=== PATIENT | female | born 1955 | race Caucasian/White ===

== ENCOUNTER 2023-10-24 10:15 | Outpatient (AMB) | payer MEDICARE, OTHER, SELFPAY ==
--- NOTE | 2023-10-24 10:40 | A.SPINEOV_ITS ---
Intake Intake Visit Reasons: Radiculopathy, lumbar region Intake Note: Ms. Smith is here today c/o low back pain that radiates to the left leg. Property Loss Insurance Claim Adjuster Required: No Allergies Penicillins Allergy (Verified 10/24/23 10:41) Unknown Assessment & Plan Assessment & Plan (1) Sacroiliac joint dysfunction of left side: Code(s): M53.3 - Sacrococcygeal disorders, not elsewhere classified Plan Dear colleague Thank you for referring Tran Smith to the office today with a chief complaint of pain in the left SI joint area. HPI: This 68-year-old female suffering from progressive pain in the left SI joint area. The pain can radiate to her thigh and give burning in her left knee. Pain is severe night and she constantly has to rotate in her bed. Sitting or bending increases the pain. She has to support her left leg when she comes out of a car. Difficulty from sitting to standing position. Physical therapy provides no relief. She has not tried injections. 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 SI joint provocative test are all positive. Straight leg raising is negative. Sensation is diminished over bilateral feet.. She walks with an antalgic gait. 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 No nerve root compression. Impression/Plan: This 68-year-old female is most likely suffering from a left SI joint dysfunction. She has no clinical history of neurogenic claudication and therefore the [id number] central stenosis L4-5 should be ignored. I prescribed in his eye joint belt and will refer to our pain management team for an SI joint injection. She will return to my clinic if needed. Thank you for allowing me to participate in your patients care. total time spent was 50 minutes in counseling ,coordination of plan, personal review of imaging, surgical decision making and subsequent plan Lux Cotto MD, PhD Spine Fellowship Trained Neurosurgeon Director, [facility] Orders: Referrals Pain Management Referral M53.3 - Sacrococcygeal disorders, not elsewhere classified Medications: New sacroiliac belt As directed 1 ea 0RF Left SI joint pain M53.3 - Sacrococcygeal disorders, not elsewhere classified Coding Level of Care Code New Pt Level 4 (56841) Diagnoses Sacroiliac joint dysfunction of left side M53.3
== END 2023-10-24 11:42 | disposition home or self-care (01) ==
PROVIDERS: PCP Family Medicine; Referring Provider Family Medicine; Visit Provider Neurological Surgery
DX: M53.3 Sacrococcygeal disorders, not elsewhere classified (principal)
CPT/HCPCS: 99204

== ENCOUNTER → 2023-10-24 10:15 | Outpatient (BNVA) | payer MEDICARE, OTHER, SELFPAY | PROVIDERS: PCP Family Medicine; Visit Provider Neurological Surgery | DX: M53.3 Sacrococcygeal disorders, not elsewhere classified (principal) | CPT/HCPCS: 99202 ==

== ENCOUNTER 2023-11-15 06:21 | Outpatient (REF) | payer MEDICARE, OTHER, SELFPAY ==
--- NOTE | ~2023-11-15 | FL_ITS ---
EXAMINATION: XR FLUOROSCOPY WITH IMAGES CLINICAL INFORMATION: SI pain COMPARISON: None available. TECHNIQUE: Fluoroscopy Supervised By: Physician. Fluoroscopy Time: 0.1 minutes.. Cumulative Dose: 2.21 mGy. DAP: 0.0136 Gycm2. Images: 1. FINDINGS: The injection needle overlies the left SI joint. FL/FL guidance in treatment room IMPRESSION: Fluoroscopy is described.
== END 2023-11-15 06:22 | disposition home or self-care (01) ==
LOC: CF 06:21
PROVIDERS: Visit Provider Internal Medicine
DX: M53.3 Sacrococcygeal disorders, not elsewhere classified (principal)
CPT/HCPCS: 27096; J2795; J3301

== ENCOUNTER 2023-11-15 13:34 | Outpatient (AMB) | payer MEDICARE, OTHER, SELFPAY ==
--- NOTE | 2023-11-15 14:39 | A.OFFVIS_ITS ---
Vital Signs 11/15/23 14:55 11/15/23 14:56 Height 5 ft 7 in 5 ft 7 in Weight 164 lb 2 oz 164 lb 2 oz BMI 25.7 25.7 BP 106/64 114/62 Blood Pressure Location Lt brachial Lt brachial Position Sitting Sitting Respiration 14 14 Pulse 75 69 Pulse Source Pulse Oximeter Pulse Oximeter Pulse Oximetry (%) 95 95 Oxygen Delivery Method Room Air Room Air Comment pre-op post-op Intake Visit Reasons: Left SIJ inj ([place]ennings Pt) Allergies Penicillins Allergy (Verified 11/15/23 14:58) Unknown HPI HPI Left SIJ inj (Pennings Pt): Details: Patient presents for scheduled procedure. Denies any recent cough, cold, infection, fever or other significant changes in medical history since last office visit. Physical Exam Vital Signs: Last Vital Signs Pulse 69 11/15/23 14:56 Resp 14 11/15/23 14:56 BP 114/62 11/15/23 14:56 Pulse Ox 95 11/15/23 14:56 Oxygen Delivery Method Room Air 11/15/23 14:56 BMI result Body Mass Index 25.7 Office Procedures Joint Injection/Drain Joint Injection/Drain Details: Diagnostic Sacroiliac Joint Injection, Left The procedure, its benefits, and its risks were explained and written informed consent was obtained from the patient. Immediately prior to starting the procedure, a time-out safety check was conducted. The patient's identification, procedure name, procedure site, and procedure laterality were confirmed with the patient. ? Patient was placed prone on the fluoroscopy table and the lumbosacral area was prepped using ChloraPrep and draped with sterile drapein standard fashion. The C-arm was rotated in a contralateral oblique fashion until the medial border of the iliac crest no longer foreshadowed the posterior sacroiliac joint line. The skin and subcutaneous tissue was anesthetized using 1 mL of 0.75% plain lidocaine with 1.5-inch 25-gauge needle in the middle region of the joint line.? A 3.5-inch 22-gauge spinal needle with small bend on the tip was slowly advanced towards the joint line, coaxial to the x-ray beam. Once bony content was obtained, the needle was easily slid into the intra-articular space.? Intra- articular needle position was confirmed using lateral fluoroscopy.? A total volume of 2 mL of solution 0.5% of ropivacaine was injected intra-articularly. The stylet was reinserted and needle was removed. The patient tolerated the procedure well. Patient denied any lower extremity weakness or numbness. Patient was observed for 30 min and was discharged after fulfilling the standard discharge criteria. Coding 29950 - Sacroiliac Procedure code (CPT) selection complete Assessment & Plan Assessment & Plan (1) Sacroiliac joint dysfunction of left side: Code(s): M53.3 - Sacrococcygeal disorders, not elsewhere classified Category: Medical Plan Patient is status post left SIJ diagnostic injection. Patient tolerated procedure well and was discharged home in stable condition with discharge instructions. All questions were answered. We will follow-up via telephone or in clinic to assess response to therapy. A follow-up appointment was made during today's visit. Orders: Orders FL guidance in treatment room Today M53.3 - Sacrococcygeal disorders, not els ewhere classified Coding Level of Care Code Procedure Only Diagnoses Sacroiliac joint dysfunction of left side M53.3 CPT Codes Coding - Joint 9: 08231 - Sacroiliac ([id number])
[2023-11-15 14:55] VITALS: BP 106/64; PULSE 75; RESP 14; O2SAT 95; BMI 25.7
[2023-11-15 14:56] VITALS: BP 114/62; PULSE 69; RESP 14; O2SAT 95; BMI 25.7
== END 2023-11-15 14:40 | disposition home or self-care (01) ==
LOC: HO.PMCPRC 13:34
PROVIDERS: PCP Family Medicine; Visit Provider Internal Medicine
DX: M53.3 Sacrococcygeal disorders, not elsewhere classified (principal)
CPT/HCPCS: 27096

== ENCOUNTER 2023-11-19 10:04 | Outpatient (AMB) | payer MEDICARE, OTHER, SELFPAY ==
--- NOTE | 2023-11-19 10:13 | A.OFFVIS_ITS ---
Vital Signs 11/19/23 10:15 Height 5 ft 7 in Weight 171 lb BMI 26.8 BP 135/86 Blood Pressure Location Lt brachial Position Sitting Respiration 14 Pulse 77 Pulse Source Pulse Oximeter Pulse Oximetry (%) 93 Oxygen Delivery Method Room Air Intake Visit Reasons: s/p Left Dx SIJ inj Allergies Penicillins Allergy (Verified 11/19/23 10:16) Unknown Medication List - Last Reconciled 11/19/23 by Irma Herrera LPN levothyroxine 75 mcg PO DAILY miscellaneous medical supply SI joint belt; use as directed CHARI: 99 sacroiliac belt As directed HPI HPI s/p Left Dx SIJ inj: Details: 68-year-old female who presents today to the office for a status post-left diagnostic SIJ injection. The patient reports 75% relief following the procedure. She initially had mild soreness, which eventually improved. She states that her back and hip pain have been bothersome. She noticed a worsening of her knee pain with burning sensations. The pain radiates from her knee down to her toes. She has difficulty walking. She is not able to bend or sit for prolonged periods of time. She is wearing SIJ belt with good benefit. She was evaluated by Dr. Cotto. She has fractured her ankle several times in the past. 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 Past procedures 11/15/23: Diagnostic Sacroiliac Joint Injection, Left: 75% relief. Review of Systems Const All systems reviewed & are unremarkable except as noted in HPI and below Physical Exam Vital Signs: Last Vital Signs Pulse 77 11/19/23 10:15 Resp 14 11/19/23 10:15 BP 135/86 11/19/23 10:15 Pulse Ox 93 11/19/23 10:15 Oxygen Delivery Method Room Air 11/19/23 10:15 BMI result Body Mass Index 26.8 General: Appears afebrile. Alert and oriented. Mood and affect appropriate. Follows and participates in conversation appropriately. Respiratory effort is unlabored. Able to transition from sit to stand unassisted. Ambulates with bilaterally normal heel strike and toe off. Results Reviewed Results Reviewed: No imaging is available for review. Assessment & Plan Assessment & Plan (1) Sacroiliac joint dysfunction of left side: Code(s): M53.3 - Sacrococcygeal disorders, not elsewhere classified Category: Medical Plan Will schedule her for a right therapeutic SIJ injection. Discussed the risks and benefits of the procedure with the patient in detail. All questions were answered. The patient is on board with the plan. Justification for interventional therapy: ? Patient with average pain > 6/10 ? Patient has exhausted conservative therapy. Diagnostic injection provided more than 75% relief. ? Patient unable to tolerate physical therapy due to pain. . Patient has a good understanding of their pain condition and has appropriate mental and social support Scribed for Dr. Grimes by Brett Silva, quality engineer medical device, on 11/19/2023. I, Dr. Grimes, have personally reviewed and agree with the information entered by the scribe. Coding Level of Care Code Est Pt Level 3 (19765) Diagnoses Sacroiliac joint dysfunction of left side M53.3
[2023-11-19 10:15] VITALS: BP 135/86; PULSE 77; RESP 14; O2SAT 93; BMI 26.8
== END 2023-11-19 10:56 | disposition home or self-care (01) ==
PROVIDERS: PCP Family Medicine; Visit Provider Internal Medicine
DX: M53.3 Sacrococcygeal disorders, not elsewhere classified (principal)
CPT/HCPCS: 99213

== ENCOUNTER → 2023-11-19 10:04 | Outpatient (BNVA) | payer MEDICARE, OTHER, SELFPAY | PROVIDERS: PCP Family Medicine; Visit Provider Internal Medicine | DX: M53.3 Sacrococcygeal disorders, not elsewhere classified (principal) | CPT/HCPCS: 99212 ==

== ENCOUNTER 2023-11-29 06:28 | Outpatient (REF) | payer MEDICARE, OTHER, SELFPAY ==
--- NOTE | ~2023-11-29 | FL_ITS ---
EXAMINATION: XR FLUOROSCOPY WITH IMAGES CLINICAL INFORMATION: Sacrococcygeal disorders. COMPARISON: None available. TECHNIQUE: Fluoroscopy Supervised By: Dr. Grimes. Fluoroscopy Time: 0.1 min. Cumulative Dose: 1.49 mGy. DAP: 0.0128 Gycm2. Images: 2. FINDINGS: Intraoperative fluoroscopy and spot films were performed during a procedure in the OR. Images demonstrate a spinal needle overlying what is labeled the left SI joint. Please see Dr. Grimes' report for complete details. FL/FL guidance in treatment room IMPRESSION: Intraoperative fluoroscopy and spot films were obtained. Please see Dr. Grimes' report for complete details.
== END 2023-11-29 06:29 | disposition home or self-care (01) ==
LOC: CF 06:28
PROVIDERS: Visit Provider Internal Medicine
DX: M53.3 Sacrococcygeal disorders, not elsewhere classified (principal)
CPT/HCPCS: 27096; J2795; J3301

== ENCOUNTER 2023-11-29 14:34 | Outpatient (AMB) | payer MEDICARE, OTHER, SELFPAY ==
--- NOTE | 2023-11-29 14:38 | A.OFFVIS_ITS ---
Vital Signs 11/29/23 16:05 11/29/23 16:06 Height 5 ft 7 in Weight 151 lb BMI 23.6 BP 122/74 130/82 Blood Pressure Location Lt brachial Lt brachial Position Sitting Respiration 18 16 Pulse 92 88 Pulse Source Pulse Oximeter Pulse Oximeter Pulse Oximetry (%) 96 97 Oxygen Delivery Method Room Air Room Air Comment Pre-Op Post-Op Intake Visit Reasons: Right theraputic SIJ inj Allergies Penicillins Allergy (Verified 11/19/23 10:16) Unknown HPI HPI Right theraputic SIJ inj: Details: Patient presents for scheduled procedure on the left SI joint. Denies any recent cough, cold, infection, fever or other significant changes in medical history since last office visit. Physical Exam Vital Signs: Last Vital Signs Pulse 88 11/29/23 16:06 Resp 16 11/29/23 16:06 BP 130/82 11/29/23 16:06 Pulse Ox 97 11/29/23 16:06 Oxygen Delivery Method Room Air 11/29/23 16:06 BMI result Body Mass Index 23.6 Office Procedures Joint Injection/Drain Joint Injection/Drain Details: Sacroiliac Joint Injection, LEFT The procedure, its benefits, and its risks were explained and written informed consent was obtained from the patient. Immediately prior to starting the procedure, a time-out safety check was conducted. The patient's id entification, procedure name, procedure site, and procedure laterality were confirmed with the patient. ? Patient was placed prone on the fluoroscopy table and the lumbosacral area was prepped using ChloraPrep and draped with sterile drapein standard fashion. The C-arm was rotated in a contralateral oblique fashion until the medial border of the iliac crest no longer foreshadowed the posterior sacroiliac joint line. The skin and subcutaneous tissue was anesthetized using 1 mL of 0.75% plain lidocaine with 1.5-inch 25-gauge needle in the middle region of the joint line.?A 3.5-inch 22-gauge spinal needle with small bend on the tip was slowly advanced towards the joint line, coaxial to the x-ray beam. Once bony content was obtained, the needle was easily slid into the intra-articular space.?Intra- articular needle position was confirmed using lateral fluoroscopy.?A total volume of 2.5mL of solution containing 40 mg Kenalog and rest 0.5% of ropivacaine was injected intra-articularly. The stylet was reinserted and needle was removed. The patient tolerated the procedure well. Patient denied any lower extremity weakness or numbness. Patient was observed for 30 min and was discharged after fulfilling the standard discharge criteria. Coding 81648 - Sacroiliac Procedure code (CPT) selection complete Assessment & Plan Assessment & Plan (1) Sacroiliac joint dysfunction of left side: Code(s): M53.3 - Sacrococcygeal disorders, not elsewhere classified Category: Medical Plan Patient is status post left therapeutic sacroiliac joint injection. Patient tolerated procedure well and was discharged home in stable condition with discharge instructions. All questions were answered. We will follow-up via telephone or in clinic to assess response to therapy. A follow-up appointment was made during today's visit. Orders: Orders FL guidance in treatment room Today M53.3 - Sacrococcygeal disorders, not elsewhere classified Coding Level of Care Code Procedure Only Diagnoses Sacroiliac joint dysfunction of left side M53.3 CPT Codes Coding - Joint 9: 70418 - Sacroiliac ([id number])
[2023-11-29 16:05] VITALS: BP 122/74; PULSE 92; RESP 18; O2SAT 96; BMI 23.6
[2023-11-29 16:06] VITALS: BP 130/82; PULSE 88; RESP 16; O2SAT 97
== END 2023-11-29 16:01 | disposition home or self-care (01) ==
LOC: HO.PMCPRC 14:34
PROVIDERS: PCP Family Medicine; Visit Provider Internal Medicine
DX: M53.3 Sacrococcygeal disorders, not elsewhere classified (principal)
CPT/HCPCS: 27096

== ENCOUNTER 2023-12-31 10:42 | Outpatient (AMB) | payer MEDICARE, OTHER, SELFPAY ==
--- NOTE | 2023-12-31 10:44 | A.OFFVIS_ITS ---
Vital Signs 12/31/23 10:46 Height 5 ft 7 in Weight 171 lb BMI 26.8 BP 120/78 Blood Pressure Location Lt brachial Position Sitting Respiration 14 Pulse 78 Pulse Source Pulse Oximeter Pulse Oximetry (%) 97 Oxygen Delivery Method Room Air Intake Visit Reasons: s/p right theraputic SIJ inj Allergies Penicillins Allergy (Verified 12/31/23 10:47) Unknown Medication List - Last Reconciled 12/31/23 by Irma Herrera LPN levothyroxine 75 mcg PO DAILY miscellaneous medical supply SI joint belt; use as directed CHARI: 99 sacroiliac belt As directed HPI HPI s/p right theraputic SIJ inj: Details: 68-year-old female presenting today for status post right therapeutic SIJ injection. She reports burning pain in her left knee. She is having trouble with her ankle because that had been fractured twice. She is limping while ambulating. She is depressed in the outdoor because she cannot able to function normally. She has pain in her thighs. She denies any difficulty sleeping. She reports she gets easily in and out of the car. She states that her left leg is bothering her a lot. She feels likes her gait is abnormal, and not walking normally. She has to put pressure on the right leg. She has to take a lot of breaks while doing yard work. Difficulty with bending, lifting and twisting. She desires to do physical therapy which helped with her back in the past. She states she overall fairly healthy and active. She mostly does home exercises as she does not have time for gym. She has arthritis in her back and she had an MRI done at [facility]. She has a TIA stroke in 2016 and took baby aspirin. [facility] Medical History (Updated 12/31/23 @ 11:23 by Manuel Grimes MD) Transient ischemic attack (TIA) Migraine Hypothyroid Review of Systems Const All systems reviewed & are unremarkable except as noted in HPI and below Physical Exam Vital Signs: Last Vital Signs Pulse 78 12/31/23 10:46 Resp 14 12/31/23 10:46 BP 120/78 12/31/23 10:46 Pulse Ox 97 12/31/23 10:46 Oxygen Delivery Method Room Air 12/31/23 10:46 BMI result Body Mass Index 26.8 General: Appears afebrile. Alert and oriented. Mood and affect appropriate. Follows and participates in conversation appropriately. Respiratory effort is unlabored. Able to transition from sit to stand unassisted. Ambulates with bilaterally normal heel strike and toe off. Assessment & Plan Assessment & Plan (1) Lumbar radiculitis: Code(s): M54.16 - Radiculopathy, lumbar region Category: Medical Plan She is going to go for physical therapy for lumbar radicular symptoms and then she will come back as needed if her symptoms do not improve with physical therapy. I discussed potentially left L3-L4 transforaminal injection for her left L3-L4 DRG compression. She also has significant vertebral end-plate degeneration so I discussed potential basivertebral nerve ablation procedure. Orders: Orders PT Evaluation and Treatment 12/31/23 M54.16 - Radiculopathy, lumbar region Patient Instructions: Scribed for Dr. Grimes by Colt Isaac, medical coder, on 12/31/2023. I, Dr. Grimes, have personally reviewed and agree with the information entered by the scribe Coding Level of Care Code Est Pt Level 4 (82092) Diagnoses Lumbar radiculitis M54.16
[2023-12-31 10:46] VITALS: BP 120/78; PULSE 78; RESP 14; O2SAT 97; BMI 26.8
== END 2023-12-31 11:29 | disposition home or self-care (01) ==
PROVIDERS: PCP Family Medicine; Visit Provider Internal Medicine
DX: M54.16 Radiculopathy, lumbar region (principal)
CPT/HCPCS: 99214

== ENCOUNTER → 2023-12-31 10:42 | Outpatient (BNVA) | payer MEDICARE, OTHER, SELFPAY | PROVIDERS: PCP Family Medicine; Visit Provider Internal Medicine | DX: M54.16 Radiculopathy, lumbar region (principal) | CPT/HCPCS: 99212 ==

== ENCOUNTER 2024-02-14 10:36 | Outpatient (AMB) | payer MEDICARE, OTHER, SELFPAY ==
[2024-02-14 10:45] VITALS: BP 142/80; PULSE 86; O2SAT 95; BMI 26.1
--- NOTE | 2024-02-14 10:45 | A.OFFVIS_ITS ---
Vital Signs 02/14/24 10:45 Height 5 ft 6 in Weight 162 lb BMI 26.1 BP 142/80 H Blood Pressure Location Rt brachial Position Sitting Pulse 86 Pulse Source Pulse Oximeter Pulse Oximetry (%) 95 Oxygen Delivery Method Room Air Intake Visit Reasons: Hip pain Allergies Penicillins Allergy (Verified 02/14/24 10:46) Unknown Medication List - Last Reconciled 02/14/24 by Laura Fonseca levothyroxine 75 mcg PO DAILY miscellaneous medical supply SI joint belt; use as directed CHARI: 99 sacroiliac belt As directed HPI HPI Hip pain: Details: 68-year-old female presenting with worsening left lumbar radicular pain after a course of physical therapy. The patient states that she started physical therapy few weeks ago and went to 2-3 sessions. Gradually she started experiencing an acute flare of her left low back pain radiating into the buttock in her left thigh up to the left knee. She ended up in the ER and was administered IV morphine that allowed her to return home. But she has been having significant discomfort with her ADLs. She is unable to get comfortable at night and is unable to take care of her grandchildren that she normally does. She reports pain in the left lower back region including the left buttock area that radiates down the left posterior thigh. She also reports a several month history of left knee burning. She has not tolerated gabapentin or pregabalin well. She has only been taking Tylenol as needed. Pain has been greater than 7/10 on average over the past few weeks. She also continues to have axial low back pain that is worse with lumbar range of motion. [facility]LY [facility] Medical History (Updated 02/14/24 @ 12:13 by Manuel Grimes MD) Transient ischemic attack (TIA) Migraine Hypothyroid Physical Exam Vital Signs: Last Vital Signs Pulse 86 02/14/24 10:45 BP 142/80 H 02/14/24 10:45 Pulse Ox 95 02/14/24 10:45 Oxygen Delivery Method Room Air 02/14/24 10:45 BMI result Body Mass Index 26.1 On exam today: Appears afebrile. Alert and oriented. Mood and affect appropriate. Follows and participates in conversation appropriately. Respiratory effort is unlabored. Able to transition from sit to stand unassisted. Ambulates with bilaterally normal heel strike and toe off. Able to stand and walk on toes and heels. Tenderness to palpation overlying the left iliac and hip region. Lumbar range of motion is painful. Sitting for prolonged period reproduces pain. Results Reviewed Results Reviewed: There are Modic type I signal changes at L3-L4 and there are minimal Modic type II signal changes at L2-L3. Multilevel endplate osteophytes. There is diffuse disc desiccation with mild multilevel loss of intervertebral disc height which is most pronounced at L2-L3. Multiple small Schmorl's nodes. Assessment & Plan Assessment & Plan (1) Lumbar radiculitis: Code(s): M54.16 - Radiculopathy, lumbar region Category: Medical (2) Vertebrogenic low back pain: Code(s): M54.51 - Vertebrogenic low back pain Category: Medical Plan 68-year-old female with multifactorial low back pain issues. She originally presented with sacroiliac joint dysfunction with localized left sacroiliac pain that responded well to a diagnostic and therapeutic left SI joint injection. One month later she started experiencing a lumbar radicular flare after undergoing a round of physical therapy with pain originating in her lumbar spine and radiating down her left buttock and left thigh. She also has been having left knee burning during the last few months. For this symptom, I suggested pursuing a left L3-4 TFESI as the next step in management to settle her flare and allow her to return to routine of managing her sciatica related symptoms via HEP, stretching and aquatic exercises. I also suggested looking into acupuncture as an ongoing therapeutic modality in the future. She also has a history of axial low back pain unresponsive to conservative therapy including neuropathic medications, NSAIDs, physical therapy and injections. For this we discussed basivertebral nerve ablation at L2, L3, L4 and L5 levels for active ongoing Modic changes at these levels based on her MRI find ings. She also has pain in her back with axial loading and range of motion of the lumbar spine. I provided her with a brochure for this procedure and answered her questions. She is interested in proceeding with this as well after her current sciatica related flare is addressed. Coding Level of Care Code Est Pt Level 4 (25441) Procedure Only Diagnoses Lumbar radiculitis M54.16 Vertebrogenic low back pain M54.51
== END 2024-02-14 11:50 | disposition home or self-care (01) ==
PROVIDERS: PCP Family Medicine; Visit Provider Internal Medicine
DX: M54.16 Radiculopathy, lumbar region (principal); M54.51 Vertebrogenic low back pain
CPT/HCPCS: 99214

== ENCOUNTER → 2024-02-14 10:36 | Outpatient (BNVA) | payer MEDICARE, OTHER, SELFPAY | PROVIDERS: PCP Family Medicine; Visit Provider Internal Medicine | DX: M54.16 Radiculopathy, lumbar region (principal); M54.51 Vertebrogenic low back pain | CPT/HCPCS: 99212 ==

== ENCOUNTER 2024-02-28 06:11 | Outpatient (REF) | payer MEDICARE, OTHER, SELFPAY ==
--- NOTE | ~2024-02-28 | FL_ITS ---
EXAMINATION: XR FLUOROSCOPY WITH IMAGES CLINICAL INFORMATION: Pain management, left nerve root sheath injection lumbar. COMPARISON: None available. TECHNIQUE: Fluoroscopy provided to: Dr. Grimes Fluoroscopy time: 0.1 minutes DAP: 0.0624 mGycm2 Images: 2 FINDINGS: 2 coned-down PA and lateral lumbar spine images, level not apparent, shows needle within the right nerve root sleeve of a lumbar level with subsequent contrast injection. FL/FL guidance in treatment room IMPRESSION: Fluoroscopic guidance. Please refer to the full operative report for details. Electronically signed by: Los Yang MD 04/25/2024 03:30 PM EDT
== END 2024-02-28 06:12 | disposition home or self-care (01) ==
LOC: CF 06:11
PROVIDERS: Visit Provider Internal Medicine
DX: M54.16 Radiculopathy, lumbar region (principal)
CPT/HCPCS: 64483; J1100; Q9967

== ENCOUNTER 2024-02-28 09:43 | Outpatient (AMB) | payer MEDICARE, OTHER, SELFPAY ==
[2024-02-28 09:45] VITALS: BP 148/75; PULSE 62; RESP 18; O2SAT 100
--- NOTE | 2024-02-28 10:31 | MHC.OFFVIS ---
Vital Signs 02/28/24 09:45 02/28/24 10:32 BP 148/75 H 127/79 Blood Pressure Location Lt brachial Lt brachial Position Sitting Sitting Respiration 18 19 Pulse 62 71 Pulse Source Pulse Oximeter Pulse Oximeter Pulse Oximetry (%) 100 96 Oxygen Delivery Method Room Air Room Air Comment Pre-op Post-op Intake Visit Reasons: Left L3 TFESI Allergies Penicillins Allergy (Verified 02/14/24 10:46) Unknown HPI HPI Left L3 TFESI: Details: Patient presents for scheduled procedure. Denies any recent cough, cold, infection, fever or other significant changes in medical history since last office visit. FORMERLY [facility] Medical History (Updated 02/14/24 @ 12:13 by Manuel Grimes MD) Transient ischemic attack (TIA) Migraine Hypothyroid Physical Exam Vital Signs: Last Vital Signs Pulse 71 02/28/24 10:32 Resp 19 02/28/24 10:32 BP 127/79 02/28/24 10:32 Pulse Ox 96 02/28/24 10:32 Oxygen Delivery Method Room Air 02/28/24 10:32 Office Procedures Details: Transforaminal epidural steroid injection, Left L3 After obtaining written consent, pre-procedure blood pressure and heart rate were stable and recorded in the nursing record. The patient was placed in the prone position on the fluoroscopy table. The lumbosacral area was prepped with chloraprep, allowed to dry and draped in sterile fashion. Using fluoroscopy, the skin overlying our target was anesthetized with 0.5% lidocaine. A 22 gauge 3.5 inch spinal needle was advanced to the safe triangle in the upper pole of the left L3 foramen. No paresthesias were elicited with needle placement and aspiration was negative for blood and CSF. Correct needle position was confirmed with approximately 1 ml contrast dye (Omnipaque 180 mg/ml) injected under real-time fluoroscopy. No evidence of vascular or intrathecal uptake was seen and there was both epidural and peripheral spread of the contrast agent. 10 mg dexamethasone plus 1 ml containing 0.5% lidocaine was slowly injected. The needle was flushed and removed. The skin was cleansed and a sterile bandages were applied. The patient tolerated the procedure well and no complications were encountered. Following the procedure the patient's vital signs were stable. The patient was discharged home in good condition with post-procedural instructions. Time Out: Immediately prior to the procedure, the following was verbally confirmed that there is a signed consent form and that the correct patient, planned procedure, site and side are consistent with documentation and that necessary equipment and/or blood products are available prior to the start of the case. Complications: none EBL: <5 cc 77166 - Lumbar/Sacral Procedure code (CPT) selection complete Assessment & Plan Assessment & Plan (1) Lumbar radiculitis: Code(s): M54.16 - Radiculopathy, lumbar region Category: Medical Plan Patient is status post left L3 TFESI. Patient tolerated procedure well and was discharged home in stable condition with discharge instructions. All questions were answered. We will follow-up via telephone or in clinic to assess response to therapy. A follow-up appointment was made during today's visit. Orders: Orders FL guidance in treatment room Today M54.16 - Radiculopathy, lumbar region Coding Level of Care Code Procedure Only Diagnoses Lumbar radiculitis M54.16 CPT Codes Transforaminal Epidural Steroid Inj - TESI 3: 34500 - Lumbar/Sacral ([id number])
[2024-02-28 10:32] VITALS: BP 127/79; PULSE 71; RESP 19; O2SAT 96
== END 2024-02-28 10:32 | disposition home or self-care (01) ==
LOC: HO.PMCPRC 09:43
PROVIDERS: PCP Family Medicine; Visit Provider Internal Medicine
DX: M54.16 Radiculopathy, lumbar region (principal)
CPT/HCPCS: 64483

== ENCOUNTER 2024-03-17 11:37 | Outpatient (AMB) | payer MEDICARE, OTHER, SELFPAY ==
--- NOTE | 2024-03-17 11:28 | A.OFFVIS_ITS ---
Intake Visit Reasons: s/p Left L3 TFESI Allergies Penicillins Allergy (Verified 02/14/24 10:46) Unknown HPI HPI s/p Left L3 TFESI: Details: 69-year-old female who presents today to the office for a status post left L3 transforaminal epidural steroid injection The patient reports 75% relief following the procedure. She has been active the last four days and has mild pain due to activities. She reports lower back and upper hip regions with prolonged sitting. She rates her back pain at 6/10 in intensity. She has a burning sensation in her left knee. Her knee pain is bothersome. She had a side effect from the last sacroiliac joint injection and developed redness and rash all over the face. She is sleeping well and able to change sides while sleeping without any pain. Past procedures 02/28/24: Transforaminal epidural steroid injection, Left L3: 75% relief. 11/29/23: Sacroiliac Joint Injection, LEFT: % relief. 11/15/23: Diagnostic Sacroiliac Joint Injection, Left: 75% relief. FORMERLY [facility] Medical History (Updated 02/14/24 @ 12:13 by Manuel Grimes MD) Transient ischemic attack (TIA) Migraine Hypothyroid Review of Systems Const All systems reviewed & are unremarkable except as noted in HPI and below Telehealth Telehealth Telehealth [facility] Location of provider rendering services: practice address Location of patient: address on file Patient Identification confirmed using: Name, : Yes Telehealth method: video Patient verbally consented to treatment: Yes Patient verbally consented to billing insurance company: Yes Patient informed of any privacy concerns related to visit: Yes Minutes spent on Phone/Video with Pt.: 11 Results Reviewed Results Reviewed: MR Lumbar Spine (C-) CPT 29766 Room Description: [facility] 1.5 MR Lumbar Spine (C-) CPT 13317 INDICATION: Lumbar radiculopathy Lumbar radiculopathy [email or web address] - Standard Department Protocol TECHNIQUE: MRI of the lumbar spine was performed without intravenous contrast utilizing sagittal SPACE with axial reformats, sagittal T1, and sagittal STIR sequences. COMPARISON: None. FINDINGS: NUMBERING: The study assumes 5 [id number] lumbar type vertebral bodies. ALIGNMENT, VERTEBRAE, MARROW, AND DISCS: Alignment is normal. Vertebral body heights are preserved. There are Modic type I signal changes at L3-L4 and there are minimal Modic type II signal changes at L2-L3. Multilevel endplate osteophytes. There is diffuse disc desiccation with mild multilevel loss of intervertebral disc height which is most pronounced at L2-L3. Multiple small Schmorl's nodes. CONUS: The conus is normal in signal and contour, with normal level of termination at L1. PARASPINAL TISSUES: There is atrophy of the posterior paraspinal musculature. DETAILED FINDINGS BY LEVEL: T11-T12: Facet arthropathy. No significant canal stenosis or neural foraminal narrowing. T12-L1: Facet arthropathy. No significant canal stenosis or neural foraminal narrowing. L1-L2: Minimal disc bulge and facet arthropathy. No significant canal stenosis or neural foraminal narrowing. L2-L3: Minimal disc bulge and facet arthropathy. No significant canal stenosis or neural foraminal narrowing. L3-L4: Diffuse disc bulge with ligamentum flavum thickening and facet arthropathy resulting in mild narrowing of the spinal canal and left neural foramen. There is no significant right neural foraminal narrowing. L4-L5: Diffuse disc bulge with ligamentum flavum thickening and facet arthropathy resulting in mild narrowing of the spinal canal or right subarticular zone with crowding of the traversing right L5 nerve roots. There is no significant neural foraminal narrowing. L5-S1: Disc bulge and facet arthropathy. No significant canal stenosis or neural foraminal narrowing. IMPRESSION: Multilevel degenerative changes of the lumbar spine as described above. There is crowding of the traversing right L5 nerve roots at L4-L5. Correlate for corresponding distribution symptoms. Assessment & Plan Assessment & Plan (1) Vertebrogenic low back pain: Code(s): M54.51 - Vertebrogenic low back pain Category: Medical Plan Discussed BVN ablation vs. temporary nerve stimulator vs. local anesthetic injection as possible treatment options. We will schedule her for L2-L3-L4-L5 BVN ablation for axial back pain not responsive to other treatments. Discussed the risks and benefits of the procedure with the patient in detail. All questions were answered. The patient is on board with the plan. Justification for interventional therapy: ? Patient with average pain > 6/10 ? Patient has exhausted conservative therapy including SI joint injection physical therapy. transforaminal epidural steroid injection with persistent low back pain ? Patient unable to tolerate physical therapy due to pain. . Patient has a good understanding of their pain condition and has appropriate mental and social support. Scribed for Dr. Grimes by Brett Silva, neuropsychology medical consultant, on 03/17/2024. I, Dr. Grimes, have personally reviewed and agree with the information entered by the scribe. Coding Level of Care Code Est Pt Level 4 (65296) Diagnoses Vertebrogenic low back pain M54.51
== END 2024-03-17 11:38 | disposition home or self-care (01) ==
LOC: HO.PMC 11:37
PROVIDERS: PCP Family Medicine; Visit Provider Internal Medicine
DX: M54.51 Vertebrogenic low back pain (principal)
CPT/HCPCS: 99214

== ENCOUNTER → 2024-03-17 11:37 | Outpatient (BNVA) | payer MEDICARE, OTHER, SELFPAY | PROVIDERS: PCP Family Medicine; Visit Provider Internal Medicine | DX: M54.51 Vertebrogenic low back pain (principal) | CPT/HCPCS: 99212 ==

== ENCOUNTER 2024-04-30 09:53 | Day surgery (SDC) | payer MEDICARE, OTHER, SELFPAY ==
[2024-04-28 13:52] VITALS: BMI 26.1
[2024-04-28 14:07] VITALS: BMI 25.5
--- NOTE | 2024-04-28 14:42 | P.CONAN_ITS ---
Documented by User: Jaki Ramos NP 04/28/24 14:45 HPI - Anesthesia Eval Consult details Narrative: 69yo F for L2,L3,L4 and L5 Basivertebral Nerve Ablation Intracept RFA Hx of long to wake with GA ~ 40 years ago PMFSH Active Problems Active Problems: All Active Problems Vertebrogenic low back pain (Acute) Lumbar radiculitis (Acute) Sacroiliac joint dysfunction of left side (Acute) Past Medical History Medical History (Updated 04/28/24 @ 14:06 by Vanessa Brandon RN) Anesthesia complication Family history of anesthesia complication Transient ischemic attack (TIA) Migraine Hypothyroid Surgical History Surgical History (Updated 04/28/24 @ 13:59 by Vanessa Brandon RN) Hx of tubal ligation History of esophagogastroduodenoscopy (EGD) H/O colonoscopy Social History Social History Are you a primary wound care coordinator to a significant other at home: No Do you presently have visiting nurse or other home services: No Patient Tobacco Use Status: Never used Tobacco Use of substances other than those prescribed or required for medical reasons: No Have you been hit, kicked, punched, or otherwise hurt by someone within the past year? If so, by whom?: No Spiritual Healthcare Practices: none Yazidi Healthcare Practices: [employer] Cultural Healthcare Practices: none Are you DNR?: No Advance Directives Information Provided: Yes (as above noted) Advance Directives on File: No Recently lost weight without trying: No Eating poorly because of decreased appetite: No Nutrition Risks: No Nutritional Risk FDLMP: n/a Poor oral hygiene: No Meds Allergies Allergy/AdvReac Type Severity Reaction Status Date / Time Penicillins Allergy Unknown reaction Verified 04/28/24 14:06 unknown-allergy as young adult Home Medications ?Medication ?Instructions ?Recorded ?Confirmed ?Last Taken ?Type levothyroxine 75 mcg tablet 75 mcg PO DAILY 11/19/23 04/28/24 Unknown History Exam Height,Weight and Vital Signs: Height 5 ft 6 in Weight 71.668 kg Pertinent Lab Results Pertinent Lab Results: Labs from [facility] 01/2024 CBC and CMP wnl Assessment and Plan Assessment Anesthesia Assessment: Chart Reviewed Documented by User: Tran Frank MD 04/30/24 10:53 [facility] Past Medical History Medical History (Updated 04/28/24 @ 14:06 by Vanessa Brandon RN) Anesthesia complication Family history of anesthesia complication Transient ischemic attack (TIA) Migraine Hypothyroid Family History Family history of problems with anesthesia: No Surgical History Surgical History (Updated 04/28/24 @ 13:59 by Vanessa Brandon RN) Hx of tubal ligation History of esophagogastroduodenoscopy (EGD) H/O colonoscopy History of Problems with Anesthesia: No Social History Social History Are you a primary wound care coordinator to a significant other at home: No Do you presently have visiting nurse or other home services: No Patient Tobacco Use Status: Never used Tobacco Use of substances other than those prescribed or required for medical reasons: No Have you been hit, kicked, punched, or otherwise hurt by someone within the past year? If so, by whom?: No Spiritual Healthcare Practices: none Yazidi Healthcare Practices: [employer] Cultural Healthcare Practices: none Are you DNR?: No Advance Directives Information Provided: Yes (as above noted) Advance Directives on File: No Recently lost weight without trying: No Eating poorly because of decreased appetite: No Nutrition Risks: No Nutritional Risk FDLMP: n/a Poor oral hygiene: No Meds Allergies Allergy/AdvReac Type Severity Reaction Status Date / Time Penicillins Allergy Unknown reaction Verified 04/28/24 14:06 unknown-allergy as young adult Home Medications ?Medication ?Instructions ?Recorded ?Confirmed ?Last Taken ?Type levothyroxine 75 mcg tablet 75 mcg PO DAILY 11/19/23 04/28/24 Unknown History Exam Airway Mallampati Class: II (top right front tooth cap, caps lateral) TM Dist: >3cm Neck ROM: Full Heart: rrr Lungs: cta Assessment and Plan Assessment Anesthesia Assessment: Anesthesia Plan Discussed Final Anesthetic Review Family History of Problems with Anesthesia: No History of Problems with Anesthesia: No NPO: Yes ASA Class: II Final Preanesthetic Review: No Changes in Pt Med Stat, Meds/Allgs Chart Reviewed and Consent Obtained/Reviewed Patient Risk: Low Procedure Risk: Low Anesthetic Plan Anesthetic Plan: GA Disposition: Standard PACU
[2024-04-30] VITALS (10 sets, daily range): BP systolic 118–133; BP diastolic 69–80; PULSE 75–87; RESP 12–20; TEMP 36.3–36.6; O2SAT 88–98; BMI 25.7
[2024-04-30] MEDS: Lactated Ringers 1,000 ML 100 ML IVCONT (10:37)
[2024-04-30] MEDS: dexAMETHasone sod phosphate 4 MG/ML VIAL IVPUSH (10:38)
[2024-04-30 11:20] LABS: MRSA Nasal PCR NEGATIVE (Negative); SA Nasal PCR POSITIVE (Negative)
--- NOTE | 2024-04-30 12:09 | P.OP_ITS ---
Operative Note Operative Note Date of Service: 04/30/24 Narrative: Preoperative diagnosis: Vertebrogenic low back pain Postoperative diagnosis: Same Procedure: Basivertebral nerve (BVN) ablation ? Intracept Procedure L3, L4, L5, L5 Procedure Time Out: Patient ID confirmed, correct procedure to be performed, correct site and/or side for procedure as per marked location and correct medication(s), including antibiotic to be used for the procedure. Description of Procedure: After receiving anesthesia in the supine position, the patient was placed prone on the operating room table and all pressure points w ere appropriately padded. The back was sterilely prepped and draped. The C-arm was sterilely draped and moved into position to visualize the L5 vertebral body in the AP and lateral plane. The C-arm was rotated to square off the superior endplate at L5. The C-arm was then rotated to the left approximately 15-20 degrees for an approach to the left L5 pedicle. The skin entry point was identified and infiltrated with 1% lidocaine using a 25-gauge 1-1/2 inch needle. A skin incision was made with 15 scalpel blade. The introducer cannula with bevel tip was then introduced through the skin, subcutaneous tissue and paraspinal muscle until bony contact was made. The position was checked in the AP and lateral plane. Using a mallet, the trocar was then advanced through the pedicle to the posterior aspect of the vertebral body using a combination of AP and lateral views to ensure appropriate traversing of the pedicle and no breaching of the pedicle medially. Once the trocar was in the posterior aspect of the L5 vertebral body, the trocar was removed from the cannula and the curved cannula assembly with the nitinol J-stylet was inserted. The spin wheel was rotated counterclockwise permitting excursion of the J-stylet. The curved cannula assembly was then advanced using a mallet in 1-2 mm increments. The J- stylet was observed to traverse the vertebral body in the AP and lateral views. The J-stylet was removed and replaced with the straight stylet to reach the BVN target. Target was reached when the tip of the stylet was 50% anterior of the posterior wall of the L5 in the lateral view (midway between the superior and inferior endplates) and it crossed the midline of the L5 spinous process in the AP view. The stylet was then removed. The bipolar radiofrequency (RF) probe was connected to the generator and then inserted into the introducer cannula in its ablation position. The spin wheel was rotated clockwise to retract the PEEK sleeve to expose the proximal electrode on the radiofrequency probe. The BVN was then ablated using [employer]?s targeted RFG algorithm. While the ablation was occurring at L5, the C-arm was moved to visualize the target at the superolateral aspect of the L2 vertebral body. The C-arm was rotated to square off the superior endplate at L2 and rotated left to obtain an oblique view. The superolateral left L2 pedicle was identified for access. The same process was utilized to place the tip of the cannular 50% anterior of the posterior wall of the L2 in the lateral view (midway between the superior and inferior endplates) and it crossed the midline of the L2 spinous process in the AP view. The stylet was then removed. The bipolar radiofrequency (RF) probe was removed from the previous vertebral body, the tip cleaned and was inserted into the introducer cannula in its ablation position. The spin wheel was rotated clockwise to retract the PEEK sleeve to expose the proximal electrode on the radiofrequency probe. The BVN was then ablated using [employer]?s targeted RFG algorithm. While the ablation was occurring at L2, the C-arm was moved to visualize the target at the superolateral aspect of the L3 vertebral body using the approach similar to the L2 vertebral body. The C-arm was rotated to square off the superior endplate at L3 and rotated approximately to the right to obtain an oblique view. The superolateral right L3 pedicle was identified, and the skin entry point identified. Same steps were followed as for L2. Target was reached when the tip of the stylet was 50% anterior of the posterior wall of the L4 in the lateral view (midway between the superior and inferior endplates) and it crossed the midline of the L3 spinous process in the AP view. The stylet was then removed. The bipolar radiofrequency (RF) probe was removed from the previous vertebral body, the tip cleaned and was inserted into the introducer cannula in its ablation position. The spin wheel was rotated clockwise to retract the PEEK sleeve to expose the proximal electrode on the radiofrequency probe. The BVN was then ablated using [employer]?s targeted RFG algorithm. While the ablation was occurring at L3, the C-arm was moved to visualize the target at the superolateral aspect of the L4 vertebral body. The C-arm was rotated to square off the superior endplate at L4 and rotated left to obtain an oblique view. The superolateral left L4 pedicle was identified for access. The same process was utilized to place the tip of the cannular 50% anterior of the posterior wall of the L4 in the lateral view (midway between the superior and inferior endplates) and it crossed the midline of the L4 spinous process in the AP view. The stylet was then removed. The bipolar radiofrequency (RF) probe was removed from the previous vertebral body, the tip cleaned and was inserted into the introducer cannula in its ablation position. The spin wheel was rotated clockwise to retract the PEEK sleeve to expose the proximal electrode on the radiofrequency probe. The BVN was then ablated using [employer]?s targeted RFG algorithm. With all ablations completed, the instruments were removed from the vertebral bodies. The surgical wounds were closed with 2-0 silk sutures and a sterile dressing was applied. The patient was returned to the supine position and the anesthesia reversed. The patient tolerated the procedure well and was brought to the recovery room. The patient was provided post-op and follow up instructions. Complications: None Estimate Blood Loss: 15 mL
--- NOTE | 2024-04-30 12:09 | P.BOP_ITS ---
Brief Operative Note Date of Service: 04/30/24 Pre-op diagnosis: Vertebrogenic low back pain Post-op diagnosis: same Procedure: Basivertebral nerve ablation (Intracept procedure) L2, L3, L4, L5 Implants: None Surgeon: Manuel Grimes MD Anesthesia: MAC Was an Paper Cup Handle Machine Operator used for this Procedure?: No Estimated blood loss (mL): 15 Pathology: none sent Condition: stable Disposition: PACU
--- NOTE | 2024-04-30 12:09 | MHC.SHP ---
Pre-Procedural Eval Section A - 24 Hr Update-Section A only Date of Service: 04/30/24 The patient is an INPATIENT: No Changes since office visit: Yes Patient answered all questions The patient has been examined within 24 hours of the surgical procedure. The History & Physical has been completed within 30 days and I have reviewed it.: No Section B - Complete if H&P > 30 days Chief Complaint: Vertebrogenic low back pain Relevant Family History (Specify if Yes): No Relevant Social History: None Present Medications: see Short Stay Collaborative assessment Medical History: No relevant PMH History of Previous Operations: No relevant previous surgery Allergies: Allergies Allergy/AdvReac Type Severity Reaction Status Date / Time Penicillins Allergy Unknown reaction Verified 04/28/24 14:06 unknown-allergy as young adult Review of Systems Sugical H&P ROS: Negative: Constitution, Cardiovascular and Respiratory Exam Surgical H&P Exam: Normal: HEENT, Normal: Heart and Normal: Lungs Plan Diagnosis/Plan: Unchanged I have reviewed the history and physical and performed a pertinent physical examination on my patient. No changes have occurred unless specified. Time Spent With Patient Time: Total time managing care of this patient today ____ minutes.
== END 2024-04-30 16:00 | disposition home or self-care (01) ==
PROVIDERS: Registered Nurse Emergency; PCP Family Medicine; Visit Provider Internal Medicine
PROC: (CPT 64628; principal; 2024-04-30 11:30)
DX: M54.51 Vertebrogenic low back pain (principal); G43.909 Migraine, unspecified, not intractable, without status migrainosus; E03.9 Hypothyroidism, unspecified; Z86.73 Personal history of transient ischemic attack (TIA), and cerebral infarction without residual deficits; Z88.0 Allergy status to penicillin; Z98.51 Tubal ligation status; Z79.899 Other long term (current) drug therapy
CPT/HCPCS: 64628; 64629 ×2; 87640; 87641; C1889; J0736; J1100; J2003; J2250; J2405; J2704; J2795; J3010

== ENCOUNTER → 2024-04-30 09:53 | Outpatient (BNV) | payer MEDICARE, OTHER, SELFPAY | PROVIDERS: PCP Family Medicine; Visit Provider Internal Medicine | DX: M54.51 Vertebrogenic low back pain (principal) | CPT/HCPCS: 64628; 64629 ==

== ENCOUNTER 2024-05-07 09:37 | Outpatient (AMB) | payer MEDICARE, OTHER, SELFPAY ==
--- NOTE | 2024-05-07 10:01 | A.OFFVIS_ITS ---
Vital Signs 05/07/24 10:02 Height 5 ft 6 in Weight 172 lb BMI 27.8 BP 134/84 Blood Pressure Location Lt brachial Position Sitting Respiration 15 Pulse 76 Pulse Source Pulse Oximeter Pulse Oximetry (%) 96 Oxygen Delivery Method Room Air Intake Visit Reasons: S/p L2, L3, L4 and L5 BVN 04/30/24 Allergies Penicillins Allergy (Unknown, Verified 05/07/24 10:06) reaction unknown-allergy as young adult Medication List - Last Reconciled 05/07/24 by Irma Herrera LPN levothyroxine 75 mcg PO DAILY miscellaneous medical supply SI joint belt; use as directed CHARI: 99 oxycodone-acetaminophen 5-325 mg 1 tab PO Q8H PRN sacroiliac belt As directed HPI HPI S/p L2, L3, L4 and L5 BVN 04/30/24: Details: 69-year-old female who presents today to the office for a status post L2-L3-L4-L5 BVN ablation. The patient reports noticeable relief following the procedure. She reports she had cold symptoms for the first 2 days which might have contributed to the efficacy. She had soreness upon waking up yesterday; however, her pain has significantly improved so far. She has had few episodes of Knee pain but reports improvement. She is sleeping well since the procedure. Past procedures 04/30/24: L2-L3-L4-L5 BVN ablation: noticeable relief. 02/28/24: Transforaminal epidural steroid injection, Left L3: 75% relief. 11/29/23: Sacroiliac Joint Injection, LEFT: % relief. 11/15/23: Diagnostic Sacroiliac Joint Injection, Left: 75% relief. [facility] Medical History (Updated 04/28/24 @ 14:06 by Vanessa Brandon RN) Anesthesia complication Family history of anesthesia complication Transient ischemic attack (TIA) Migraine Hypothyroid Surgical History (Updated 04/28/24 @ 13:59 by Vanessa Brandon RN) Hx of tubal ligation History of esophagogastroduodenoscopy (EGD) H/O colonoscopy Social History Are you a primary physician locums urgent care to a significant other at home: No Do you presently have visiting nurse or other home services: No Patient Tobacco Use Status: Never used Tobacco Physical Exam Vital Signs: Last Vital Signs Pulse 76 10/16/24 10:02 Resp 15 05/07/24 10:02 BP 134/84 05/07/24 10:02 Pulse Ox 96 05/07/24 10:02 Oxygen Delivery Method Room Air 05/07/24 10:02 BMI result Body Mass Index 27.8 General: Appears afebrile. Alert and oriented. Mood and affect appropriate. Follows and participates in conversation appropriately. Respiratory effort is unlabored. Able to transition from sit to stand unassisted. Ambulates with bilaterally normal heel strike and toe off. Assessment & Plan Assessment & Plan (1) Vertebrogenic low back pain: Code(s): M54.51 - Vertebrogenic low back pain Category: Medical (2) Lumbar radiculitis: Code(s): M54.16 - Radiculopathy, lumbar region Category: Medical Plan Dressings were removed in the office today. Patient is cleared to shower. Follow up in 3 months via video visit to assess response to therapy. A follow-up appointment was made during today's visit. Scribed for Dr. Grimes by manuela Mooney scribe, on 05/07/2024. I, Dr. Grimes, have personally reviewed and agree with the information entered by the scribe Coding Level of Care Code Est Pt Level 3 (50303) Diagnoses Vertebrogenic low back pain M54.51 Lumbar radiculitis M54.16
[2024-05-07 10:02] VITALS: BP 134/84; PULSE 76; RESP 15; O2SAT 96; BMI 27.8
== END 2024-05-07 10:22 | disposition home or self-care (01) ==
PROVIDERS: PCP Family Medicine; Visit Provider Internal Medicine
DX: M54.51 Vertebrogenic low back pain (principal); M54.16 Radiculopathy, lumbar region
CPT/HCPCS: 99024

== ENCOUNTER → 2024-05-07 09:37 | Outpatient (BNVA) | payer MEDICARE, OTHER, SELFPAY | PROVIDERS: PCP Family Medicine; Visit Provider Internal Medicine | DX: M54.51 Vertebrogenic low back pain (principal); M54.16 Radiculopathy, lumbar region | CPT/HCPCS: 99212 ==

== ENCOUNTER 2024-08-08 09:59 | Outpatient (AMB) | payer MEDICARE, OTHER, SELFPAY ==
--- NOTE | 2024-08-08 09:59 | MHC.OFFVIS ---
Intake Visit Reasons: 3 months F/U Allergies Penicillins Allergy (Unknown, Verified 05/07/24 10:06) reaction unknown-allergy as young adult HPI HPI 3 months F/U: Details: Reports about 70% relief since the basivertebral nerve ablation procedure. Continues to have off and on symptoms with sacroiliac joint. Would like to repeat sacroiliac joint injection at some point in the future. [facility] Medical History (Updated 08/08/24 @ 10:04 by Manuel Grimes MD) Anesthesia complication Family history of anesthesia complication Transient ischemic attack (TIA) Migraine Hypothyroid Surgical History (Updated 04/28/24 @ 13:59 by Vanessa Brandon RN) Hx of tubal ligation History of esophagogastroduodenoscopy (EGD) H/O colonoscopy Social History Are you a primary director of healthcare systems to a significant other at home: No Do you presently have visiting nurse or other home services: No Patient Tobacco Use Status: Never used Tobacco Telehealth Telehealth Telehealth Platform: [employer] Location of provider rendering services: practice address Location of patient: address on file Patient Identification confirmed using: Name, : Yes Telehealth method: video Patient verbally consented to treatment: Yes Patient verbally consented to billing insurance company: Yes Patient informed of any privacy concerns related to visit: Yes Minutes spent on Phone/Video with Pt.: 12 Assessment & Plan Assessment & Plan (1) Left knee pain: Code(s): M25.562 - Pain in left knee Category: Medical (2) Vertebrogenic low back pain: Code(s): M54.51 - Vertebrogenic low back pain Category: Medical (3) Sacroiliac joint dysfunction of left side: Code(s): M53.3 - Sacrococcygeal disorders, not elsewhere classified Category: Medical Plan Adequate response to Intracept procedure for axial low back pain. Continues to have off and on SI joint related symptoms. We will consider repeat sacroiliac joint injection if and when patient is ready. Also had a long discussion regarding temporary peripheral nerve stimulation of the lumbar medial branches for axial low back pain secondary to facet and multifidus dysfunction. She does not want to undertake this at this time given her upcoming travel. She also complains of significant knee pain especially on the left side so I ordered plain films of the knees to see what type of intervention may be indicated for that. Orders: Orders XR knee LT 2V 08/08/24 M25.562 - Pain in left knee XR knee standing BI 08/08/24 M25.562 - Pain in left knee Coding Level of Care Code Tele Est Pt Level 4 (08831) Diagnoses Left knee pain M25.562 Vertebrogenic low back pain M54.51 Sacroiliac joint dysfunction of left side M53.3
--- OUTSIDE RECORDS SUMMARY | 2024-08-08 11:26 | XMS_ITS | Continuity of Care Document ---
Author Organization [address] [place] [address] Phone Care Team Providers Care Payment Analyst Name Role Phone Osiel Olea Unavailable Unavailable [...] Diagnoses Date Provider Providers Copied on Encounter [address] [place], [id number], [place] tel:[phone] [facility] No Information 2 Prabha Cartagena. [address] [place], [place], [id number] , [place]. [phone] Office/New Level [address] [place], [id number], [place] tel:[phone] [facility] UTI (chief complaint) Body mass index (BMI) 25.0-25.9, adultDysuriaUrinary tract infection, site not specified 2 Dmitri Donnie. [address] [place] [address], [address], [place]. tel:[phone] Referring Provider: Donnie Rizvi, [address] [place] [address], [address]. tel:[phone] Family History Family Member Type Diagnosis Age At Onset Father Problem Unknown Payers Payer name Insurance type Covered alliance party ID Roman monae(s) Medicare - [id number] Secondary Payer To Contracte d Primary [id number] Social History Type Description Quantity Date Captured [...]
== END 2024-08-08 10:00 | disposition home or self-care (01) ==
LOC: HO.PMC 09:59
PROVIDERS: PCP Family Medicine; Visit Provider Internal Medicine
DX: M25.562 Pain in left knee (principal); M54.51 Vertebrogenic low back pain; M53.3 Sacrococcygeal disorders, not elsewhere classified
CPT/HCPCS: 99214

== ENCOUNTER 2024-09-05 11:25 | Outpatient (AMB) | payer MEDICARE, OTHER, SELFPAY ==
--- NOTE | 2024-09-05 11:27 | MHC.OFFVIS ---
Vital Signs 09/05/24 11:29 Height 5 ft 6 in Weight 166 lb BMI 26.8 BP 140/75 H Blood Pressure Location Lt brachial Position Sitting Respiration 16 Pulse 69 Pulse Source Pulse Oximeter Pulse Oximetry (%) 98 Oxygen Delivery Method Room Air Intake Visit Reasons: FU for inj pain worsening Special Machine Operator Required: No Allergies Penicillins Allergy (Unknown, Verified 09/05/24 11:30) reaction unknown-allergy as young adult Medication List - Last Reconciled 09/05/24 by Irma Herrera LPN aspirin (Adult Aspirin Regimen) 81 mg PO DAILY levothyroxine 75 mcg PO DAILY miscellaneous medical supply SI joint belt; use as directed CHARI: 99 sacroiliac belt As directed HPI HPI FU for inj pain worsening: Details: History of Present Illness The patient is a 69-year-old female presenting with worsening left knee pain. Her primary concern is a burning pain that surfaced concurrently with a back pain episode, wherein she compensated for ambulation. Her knee pain is marked by a burning sensation notably after standing for prolonged periods, and she has a history of receiving cortisone injections to her knee, albeit mentioning with uncertainty due to the elapsed time since the intervention. Her pain has been chronically persistent, worsening notably last summer, and was exacerbated by prior compensatory movements due to back pain. Imaging studies, including a prior MRI, have identified a stable benign lesion in the distal femur. She associates the burning sensation with this lesion, as it's been observed since 2012. The patient remains under the impression that her pain presentation differs from typical osteoarthritic conditions, particularly because of the burning quality of pain. Throughout the visit, recommendations included obtaining an updated MRI of the knee for comprehensive evaluation, considering the stability of prior radiological findings. Pain Description - Onset: Worsened since last summer - Quality: Burning sensation - Primary Location: Left knee - Radiation: None noted - Exacerbating Factors: Weight-bearing activities, prolonged standing - Relieving Factors: None explicitly noted - Interference: Reports difficulty with prolonged standing due to pain Physical Exam Results - Imaging studies (x-ray, old MRI) identified a benign appearing sclerotic lesion in the distal femoral shaft, stable since 2012 - No fractures or significant joint issues noted on x-ray Pain Management - Affect: Patient affected psychologically by ongoing knee pain - Analgesia: No current pain medication reported; previous cortisone injection many years ago - Adverse Effects: None reported - Activities of Daily Living: Difficulty with prolonged standing due to pain - Aberrant Drug Related Behaviors: None noted [facility] Medical History (Updated 08/08/24 @ 10:04 by Manuel Grimes MD) Anesthesia complication Family history of anesthesia complication Transient ischemic attack (TIA) Migraine Hypothyroid Surgical History (Updated 04/28/24 @ 13:59 by Vanessa Brandon RN) Hx of tubal ligation History of esophagogastroduodenoscopy (EGD) H/O colonoscopy Social History Are you a primary dog daycare provider to a significant other at home: No Do you presently have visiting nurse or other home services: No Patient Tobacco Use Status: Never used Tobacco Physical Exam Vital Signs: Last Vital Signs Pulse 69 09/05/24 11:29 Resp 16 09/05/24 11:29 BP 140/75 H 09/05/24 11:29 Pulse Ox 98 09/05/24 11:29 Oxygen Delivery Method Room Air 09/05/24 11:29 BMI result Body Mass Index 26.8 Assessment & Plan Assessment & Plan (1) Left knee pain: Code(s): M25.562 - Pain in left knee Category: Medical Plan Plan An MRI of the left knee will be scheduled to explore underlying soft tissue or structural abnormalities contributing to the burning pain sensation. The benign lesion in the distal femur, which appears stable, will be monitored through images acquired. Following the MRI, further management, based on findings, will be determined and discussed in a follow-up appointment, likely via video. Patient was informed and verbally consented to the use of an ambient scribe for clinic note documentation during this visit. Discussion Notes I discussed with the patient the current understanding of her left knee pain, likely stemming from compensatory movements due to a prior back episode and possibly involving a sclerotic lesion in the femur. We discussed potential interventions and management, including the option of an MRI to visualize soft tissue and ligament conditions along with the inspection of the benign lesion. I outlined the likelihood of the lesion being benign, given historical data and stability over time. I provided reassurance regarding the exploration of diagnostics and the low malignancy risk. The patient expressed acceptance of the plan and the process regarding insurance authorization before proceeding with the MRI. Patient Instructions - Arrange for the MRI of the left knee as instructed - Expect contact from Radiology for scheduling - Follow up with a video appointment to discuss MRI results - Monitor knee pain and report any changes - Contact office if experiencing any new or worsening symptoms Orders: Orders MR lumbar spine wo con Today M25.562 - Pain in left knee Coding Level of Care Code Est Pt Level 3 (76179) Diagnoses Left knee pain M25.562
[2024-09-05 11:29] VITALS: BP 140/75; PULSE 69; RESP 16; O2SAT 98; BMI 26.8
--- OUTSIDE RECORDS SUMMARY | 2024-09-05 12:15 | XMS_ITS | Continuity of Care Document ---
Author Organization [address] [place] [address] Phone Care Team Providers Care Forepart Laster Name Role Phone Osiel Olea Unavailable Unavailable [...] Diagnoses Date Provider Providers Copied on Encounter [address] [place], [id number], [place] tel:[phone] [facility] No Information 2 Prabha Cartagena. [address] [place], [place], [id number] , [place]. [phone] Office/New Level [address] [place], [id number], [place] tel:[phone] [facility] UTI (chief complaint) Body mass index (BMI) 25.0-25.9, adultDysuriaUrinary tract infection, site not specified 2 Dmitri Donnie. [address] [place] [address], [address], [place]. tel:[phone] Referring Provider: Donnie Rizvi, [address] [place] [address], [address]. tel:[phone] Family History Family Member Type Diagnosis Age At Onset Father Problem Unknown Payers Payer name Insurance type Covered democrat ID Roman monae(s) Medicare - [id number] Secondary Payer To Contracte d Primary [id number] Social History Type Description Quantity Date Captured [...]
--- OUTSIDE RECORDS SUMMARY | 2024-09-05 12:15 | XMS_ITS | Data Portability ---
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 There is a less debilitating occasional headache/migraine without aura. Aside from decreased vibratory sensation at the left lower extremity and difficulty with visualization of the left fundus, neurologic examination is normal. However, she has significant unexpected tenderness to palpation at the insertion of the left cervical paraspinals at the skull base without radiation and delayed radiation on the right side reproducing the symptoms. There is also reproduction of right-sided symptoms with turning of the head to the left. The right anterior sternocleidomastoid is slightly in spasm. We had discussed that I agree that this is likely myofascial in etiology rather than migrainous (I did not note radiation at the occipital groove -however, the radiation was delayed so it is possible) I offered a referral for physical therapy. She has not had great success with physical therapy for other things in the past but she is enthusiastic about a trial. I do not generally start with an antispasmodic for headache although in her case this may be useful. She may discuss it with physiatry as well as they will also be addressing issues related to back pain. We decided to begin with the trial of PT for now. She has a prior history of TIA and had a series of headaches associated with her 2016 TIA event which are different in character. She confirms that she is on a daily aspirin. PLAN Tran Smith June 12, 2023 For the right sided radiating pain from the base of the skull to the temporal region Start physical therapy [facility] [address] [place] [address] Ph. , You will need to call to schedule the first appointment Follow-up in about 2 months to do the trial of physical therapy Sarah with Dr. 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 There is a less debilitating occasional headache/migraine without aura. --Low back pain with radiation anteriorly to the left lower extremity with possible subtle trace hip flexor weakness CURRENTLY August 21, 2022: She has persistent grade 6 right occipital junction headache and now additional left-sided headache. She has been working with physical therapy without much relief of the headache. We did not discuss medication options today, however, as her primary concern and primary frustration is low back pain radiating to the left lower extremity. She became teary when I suggested that we focus on the headache as physiatry is addressing the low back. I explained that we do sometimes see people for back pain and in particular radiating pain and described some differences between physiatry approach and neurology approach (as I have a background in both). Examination with a focus on the lower extremities was notable for possible left hip flexor weakness which was limited by pain although remained in the 4/5 range with a better effort and 4 out of 5 in the bilateral great toe extensors I was joined by Dr. Valentino who explained to her that to see her for low back pain radiating into the left lower extremity, we would need a referral from primary care. He also assured her that this is something that we can treat. She elected to hold off on follow-up for the headache for the time being and will call us as needed headache and separately if primary care send is a referral for the low back pain radiating into the left lower extremity. June 12 2023 consultation neurologic examination and discussion relating to headache: Aside from decreased vibratory sensation at the left lower extremity and difficulty with visualization of the left fundus, neurologic examination is normal. However, she has significant unexpected tenderness to palpation at the insertion of the left cervical paraspinals at the skull base without radiation and delayed radiation on the right side reproducing the symptoms. There is also reproduction of right-sided symptoms with turning of the head to the left. The right anterior sternocleidomastoid is slightly in spasm. We had discussed that I agree that this is likely myofascial in etiology rather than migrainous (I did not note radiation at the occipital groove -however, the radiation was delayed so it is possible) I offered a referral for physical therapy. She has not had great success with physical therapy for other things in the past but she is enthusiastic about a trial. I do not generally start with an antispasmodic for headache although in her case this may be useful. She may discuss it with physiatry as well as they will also be addressing issues related to back pain. We decided to begin with the trial of PT for now. She has a prior history of TIA and had a series of headaches associated with her 2016 TIA event which are different in character. She confirms that she is on a daily aspirin. PLAN Tran Sarah August 21, 2023 For the right sided radiating pain from the base of the skull to the temporal region CONTINUE physical therapy [facility] [address] [place] [phone] Ph. , Follow-up as needed regarding headaches. We did not discuss medication management (nor injection management) If you wish to see us for low back pain radiating in to the left lower extremity (for which you are already working with physical therapy above) you will need to have primary care send a referral. We would request records from [facility] on any treatment/imaging to date Seen with Dr. Valentino, impression and plan developed with lm read Not available 08/21/2023 19:24:01 Plan of Treatment Reminders Order Date Submit Date Provider Last Modified By Organization Details Last Modified Time Details Appointments None recorded. Lab None recorded. Referral neurologic physical therapist referral - Please eval from myofascial release. TTP at b/l skull base w/ delayed right occipital - temporal radiation, R SCM spasm 2022 023 shyla 1 [facility], [address] [place], [address], 4 10:22:42 Procedures None recorded. Surgeries None recorded. Imaging None recorded. Medication Orders None recorded. Patient TargetsNo targets recorded. Patient Instructions Encounter Date Encounter Id Patient Instructions Last Modified By Organization Details Last Modified Time 06/12/2023 [id number] Discussion acros s issues of diagnoses and management and same day associated chart review and management greater than 50% greater than 90 minutes Not available 06/12/2023 18:00:56 08/21/2023 [id number] Discussion acros s issues of diagnoses and management and same day associated chart review and management greater than 50% greater than 45 minutes Not available 08/21/2023 19:24:27 Reason for Referral Please eval from myofascial release. TTP at b/l skull base w/ delayed right occipital - temporal radiation, R SCM spasm Referring Physician: Meena Bullard, Neurology, Encounter Date: 06/12/2023 Procedures Surgical History Date Name Laterality Status Provider Name and Address Organization Details Recorded Time 08/21/2023 DATA REVIEW completed MEENA BULLARD PA-C [address] [place] [address], [phone], [facility] 08/21/2023 09:13:04 06/12/2023 DATA REVIEW completed MEENA BULLARD PA-C [address] [place] [address], [phone], [facility] 06/12/2023 17:37:28 Imaging Results None recorded. Procedure Notes None recorded. Medical Equipment None Reported. Medications Name Sig Start Date Stop Date Status Note LastModified by Organization Details LastModified Time valacyclovir 1 gram tablet TAKE 1 CAPSULE BY MOUTH 3 TIMES A DAY FOR 7 DAYS active Not Available Not Available No t Available levothyroxine 75 mcg tablet TAKE 1 TABLET BY MOUTH EVERY DAY IN THE MORNING ON EMPTY STOMACH FOR 90 DAYS active Not Available Not Available No t Available baclofen 10 mg tablet TAKE 1 TABLET BY MOUTH TWICE A DAY FOR 5 DAYS active Not Available Not Available No t Available pantoprazole 40 mg tablet,delayed release 1 TABLET ORALLY ONCE A DAY FOR 90 DAYS active Not Available Not Available No t Available doxycycline hyclate 100 mg tablet TAKE 1 TABLET BY MOUTH TWICE A DAY FOR 7 DAYS active Not Available Not Available No t Available Readi-Cat 2 2 % (w/v) oral suspension TAKE DIRECTED BY PRESCRIBE R'S OFFICE active Not Available Not Available No t Available Vitals Date Recorded Body height Body mass index (BMI) Body weight Respiratory rate Provider Name and Address Organization Details Last Updated DateTime 06/12/2023 167.64 cm 25 kg/m2 57925.82 g 12 /min [facility] 06/12/2023 10:31:46 Social History Question Answer Notes LastModified by Organizat ion Details LastModified Time Tobacco Smoking Status Never Smoker [facility] 06/12/2023 10:33:19 What Is Your Level Of Alcohol Consumption? None [place] Information not available 06/12/2023 What Is Your Level Of Caffeine Consumption? None Information not available 06/12/2023 What Is The Highest Grade Or Level Of School You Have Completed Or The Highest Degree You Have Received? [id number] [facility] Information not available 06/12/2023 Which Of Your Hands Is Dominant? Left Information not available 06/12/2023 What Is Your Relationship Status? Information not available 06/12/2023 Sex: Unknown Functional Status None recorded. Mental Status None recorded. Family History Relationship Description Onset Age of this Age Resolved Age Notes LastModified by Organization Details LastModified Time Maternal Grandfather Dementia [place] Not available 06/12/2023 10:32:29 Mother Dementia [place] Not avail able 06/12/2023 10:32:29 Father Heart disease [place] Not available 10:32:37 Paternal Grandmother Disorder of thyroid gland [place] Not available 10:33:01 Medical History Condition Response Headaches Y Stroke Y Thyroid Problems Y Gynecological HistoryNo gynecological history recorded. Obstetrics History GPAL:G 0 P 0 0 0 0 Past Encounters Encounter ID Performer Location Encounter Start Date Encounter Closed Date Diagnosis/Indication Diagnosis SNOMED-CT Code Diagnosis ICD10 Code Diagnosis Note [id number] Serg Valentino MD [facility] [address] [place] [address] [place] [address] 06/12/2023 10:19:16 06/13/2023 12:13:47 Spasmodic torticollis 43863729 G24.3 Migraine without aura 56 911748 G43.009 [id number] Serg Valentino MD [facility] [address] [place] [address] [place] [address] 08/21/2023 08:51:02 08/23/2023 07:56:29 Spasmodic torticollis 65351082 G24.3 Migraine without aura 55 405550 G43.009 Health Concerns Section Related Observation LastModified by Organization Detai ls LastModified Time None Recorded Concern Status LastModified by Organization Details LastModified Time None Recorded Advance Directives Directive None Recorded Payers Encounter Date Sequence Insurance Name Policy Number Policy Ariza Covered Member ID Ariza Member ID Guarantor Name 06/12/2023 1 MEDICARE [place]: [facility] Tran A Pace [id number] Tran Sarah 06/12/2023 2 [facility] - PLAN 1 (MEDICARE SUPPLEMENT) [id number] Tran Pace [id number] Tran Pace 08/21/2023 1 MEDICARE [place]: [facility] Tran A Pace [id number] Tran Sarah 08/21/2023 2 [facility] 1 (MEDICARE SUPPLEMENT) [id number] Trna Pace [id number] Tran Sarah Notes Date Note Type Note Provider Name and Address Organization Details Recorded Time 06/12/2023 text/html She presents for initial neurology evaluation of right-sided headache. Past medical history is notable for TIA. 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 She clarifies that she is not here for migraine but here for right-sided headache. She does have a history of occasional less than monthly, possibly a few times a year headache in the middle of the forehead. She has also diagnosed with cluster migraine which occurred immediately after she had a TIA in 2016 (left facial droop, hospitalized at [facility]) with severe headache to forehead, points slightly to the left and was given medication in the hospital for that, taken off of it and then treated with a natural medication for a while after and then eventually the symptoms subsided in the first year after the TIA. She does not recall either medication name. For the last few months, she has had a daily headache that emanates from the back of the head on the right and radiates up towards the temporal region. Can have episodes of severe radiating pain and can be worse with turning her head. She has light sensitivity at baseline which she attributes to mild macular degeneration and does not drive as much at night. She does have some tinnitus. The symptoms are not clearly associated with the episodes of the pain radiating from the back of the head. She went to see a neurology practice in [place] for the symptoms -for this as well as tingling in her toes - and it was recommended that she see a sports clinic and a headache clinic. So, she went to see Dr. Martinez from [facility] for back pain and numbness in the toes and for the neck pain 5 days ago and had an x-ray of the neck the next day. She reflects that he pushed on it and it was sensitive She does not know the results yet but says that it was thought that she may have occipital neuralgia. Which is scheduled for July 23 she will also be getting a work-up with MRI of the lumbar spine which and nerve test for the tingling in her toes. (She had a recent CT pelvis and says that the neurology DNP noted an issue at L4 on that study). She says her primary care offered her some medication but she is not looking for drugs, she wants to find out what is wrong and to fix it. She is concerned given her history of TIA in the past. She is not sure if these headaches are related to the back pain and the tingling that she has in the toes. Additional past medical history is notable for heart disease in her father who is from colon cancer. Her mother, who is still living at age 90 has dementia as did her maternal grandfather. Her paternal grandmother had a thyroid disease (apparently an unusual 1 and had a paper written about her). She has had a remote lumbar MRI with a disc bulge. Serg Valentino MD [address] [place] [address] [place], [phone], [facility] 06/12/2023 18:53:42 08/21/2023 text/html Follow up right-sided headache. Past medical history is notable for TIA. 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 Since June 12, 2023 initial neurology consultation, she reports that she is all right but she is still getting headaches. She has been working with physical therapy and reports that they are in the same left temporal region (she points to the left temporo-occipital junction). Recently she started getting them on the other side and is getting sharp pains that pushed through. She has been doing her home exercise plan but she says that right now, her physical therapy is working on her back and leg pain because that is her biggest issue. Physical therapy is encouraging her to use a cane because she is having trouble walking. She has been working with [facility] and they wanted to do nerve therapy but she says that physical therapy thought not ? (she is not sure if it was of the neck or of the low back).She is feeling frustrated with all of her appointments. She lives in [place] so there is gas and then the co-pay and then she had COVID for 2 weeks in her house in the interim and so she missed a number of the appointments for her nerve injections. (And she thinks that they were frustrated with her for not seeing a physical therapist through [facility]) she says that she initially started out in [place] through [facility] neurology and that she could not be helped with the headaches and that provider saw something on the back x-ray. She says that it is a mass with a trouble walking and the pain and that she is feeling cranky (this comment when I suggested we focus on the headache). Pain in the back goes all the way across the low back and then down toward the front of the thigh and past the knee into the front of the calf that is cramping. She is not sleeping well and cannot lie down (and she has had a digestive issue for the last year and no one seems to be able to figure out the issue). She is having pain in the left knee when she goes up stairs, she cannot climb. Has not had direct knee imaging but plan was for an MRI from physiatry but it was declined by insurance. She says primary care is going to try. She says the pain has been getting worse since the initial MRI was ordered by physiatry. She says this is on a background of peripheral neuropathy in the lower extremities. >>>>June 12 2023 Neurology Consultation<<<<Sh e clarifies that she is not here for migraine but here for right-sided headache. She does have a history of occasional less than monthly, possibly a few times a year headache in the middle of the forehead. She has also diagnosed with cluster migraine which occurred immediately after she had a TIA in 2016 (left facial droop, hospitalized at [facility]) with severe headache to forehead, points slightly to the left and was given medication in the hospital for that, taken off of it and then treated with a natural medication for a while after and then eventually the symptoms subsided in the first year after the TIA. She does not recall either medication name. For the last few months, she has had a daily headache that emanates from the back of the head on the right and radiates up towards the temporal region. Can have episodes of severe radiating pain and can be worse with turning her head. She has light sensitivity at baseline which she attributes to mild macular degeneration and does not drive as much at night. She does have some tinnitus. The symptoms are not clearly associated with the episodes of the pain radiating from the back of the head. She went to see a neurology practice in [place] for the symptoms -for this as well as tingling in her toes - and it was recommended that she see a sports clinic and a headache clinic. So, she went to see Dr. Martinez from [facility] for back pain and numbness in the toes and for the neck pain 5 days ago and had an x-ray of the neck the next day. She reflects that he pushed on it and it was sensitive She does not know the results yet but says that it was thought that she may have occipital neuralgia. Which is scheduled for July 23 she will also be getting a work-up with MRI of the lumbar spine which and nerve test for the tingling in her toes. (She had a recent CT pelvis and says that the neurology DNP noted an issue at L4 on that study). She says her primary care offered her some medication but she is not looking for drugs, she wants to find out what is wrong and to fix it. She is concerned given her history of TIA in the past. She is not sure if these headaches are related to the back pain and the tingling that she has in the toes. Additional past medical history is notable for heart disease in her father who is from colon cancer. Her mother, who is still living at age 90 has dementia as did her maternal grandfather. Her paternal grandmother had a thyroid disease (apparently an unusual 1 and had a paper written about her). She has had a remote lumbar MRI with a disc bulge. Serg Valentino MD [address] [place] [address] [place], [phone], [facility] 08/22/2023 18:12:37 OBGyn Episode No OBEpisode recorded.
--- OUTSIDE RECORDS SUMMARY | 2024-09-05 12:15 | XMS_ITS | Data Portability ---
Author Organization [facility], [employer] Address [address] [place] [id number] Care Team Providers Care Medical Claims Representative Name Role Phone ORVILLE MATOS Primary Care Provider Assessment Encounter Date Assessment Date Assessment LastModified by Organization Details LastModified Time 12/11/2022 12/11/2022 Physical exam is benign. Urine dipstick as below is negative for infection. Based on physical exam, there is some tenderness in right lower quadrant. Caldwell sign is negative. I am mildly concerned about appendicitis versus cholecystitis. We will get lab work as below, this also may be muscular or an atypical symptom of genital herpes outbreak. If worsening or evidence of leukocytosis or hyperbilirubinemia we will get abdominal ultrasound for further evaluation. Not systemically ill at this time. Not available 12/11/2022 14:04:50 02/06/2023 02/06/2023 Clinical exam is completely reassuring. We have done a full work-up with Amy for multiple, chronic complaints. There are no red flag GI findings, neurologic concerns or concerning cardiac findings on exam. She has had a full GI work-up including endoscopy and colonoscopy. Recently completed right upper quadrant ultrasound. She has had recent labs, and recent chest x-rays are all nonconcerning. I think most of her complaints are likely musculoskeletal in nature, there is no indication of any concerning neurologic, cardiac, metabolic contributions. Because of her irritable bowel syndrome, I did recommend that she get a second opinion from gastroenterology. While there is no concern for constipation or diarrhea, rectal manometry studies may be beneficial. We discussed treatments for her low back pain including referral back to primary spine and sports for injections, she is not interested in this. Reviewed recent x-rays which show significant arthritis. Her headaches seem to be stress related in nature. We discussed [id number] regimens in detail. Headaches do not resemble migraines, there is no clinical concerns warranting further imaging at this time. Close follow-up for reassurance and further discussion of chronic complaints as above. We will get TSH to rule out changes in her thyroid function appropriateness of her current dose of levothyroxine. We did discuss other medication options for treatment of her symptoms, she is not interested in starting another prescribed med at this time. Number and Complexity of Problems Addressed: moderate Amount and/or Complexity of Data to be Reviewed and Analyzed: moderate Risk of Complications and/or Morbidity and Mortality of Patient Management: Not available 02/07/2023 06:15:34 03/20/2023 03/20/2023 Reviewed all bel ow chronic issues. Patient has had an extensive work-up in the recent past that has been negative. She has had extensive imaging and has also been negative. She is alert and oriented x3 on exam. I do not see any acute medical problems that I will be able to intervene on at this time. I did discuss with supportive medications and other prescribed medications, but she is not interested in any medical intervention. She is not pursuing further physical therapy at this time. I did reassure her in detail that her symptoms may be related to long COVID or underlying irritable bowel syndrome. Her current symptoms do not appear to be alarming at this time. We will have close follow-up. Patient has history of stool in her urine does not seem consistent to me with some sort of rectovaginal or rectal bladder fistula. Only happened this 1 time. She has had recent CAT scans without showing any fistulas. I advised her to follow-up with GI to discuss this with GI. No urinary symptoms at this time. Number and Complexity of Problems Addressed: moderate Amount and/or Complexity of Data to be Reviewed and Analyzed: moderate Risk of Complications and/or Morbidity and Mortality of Patient Management: [email or web address] Not available 03/22/2023 06:13:44 08/16/2023 08/16/2023 Discussed below problems in detail. Radicular lumbar back pain without improvement with 6 weeks conservative therapy including PT and medications. Xrays have been unrevealing. Pending f/u with spine specialists. Discussed other below chronic problems including meds in detail. Has GI f/u. No new focal concerns. Discussed med treatment options in detail. Not interested in further med interventions. 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 Abdomen is soft to touch. MUSCULOSKELETAL: No bone pain reported. Assessment - Possible kidney infection - Ongoing back issues - Possible appendicitis, although unlikely Plan - Patient to undergo blood work and provide a urine sample for testing - Patient to start on antibiotics (Bactrim) immediately to prevent possible kidney infection from worsening - Follow-up once lab results are available Prescription Bactrim for possible kidney infection Appointments Follow-up appointment once lab results are available ICD-10 codes (3) - Low back pain, unspecified [M54.50] - Unspecified abdominal pain [R10.9] - Allergy status to penicillin [Z88.0] [email or web address] Not available 01/28/2024 14:29:45 Plan of Treatment Reminders Order Date Submit Date Provider Last Modified By Organization Details Last Modified Time Details Appointments None recorded. Lab CBC w/ auto diff 2023 [facility], [address], [place], [address], 4 14:07:23 CMP, serum or plasma 2023 024 [facility], [address], [place], [address], 4 14:07:24 [facility]inalysis complete, reflex [facility] [address], [place], [address], 4 14:07:25 TSH, serum or plasma 2022 023 [facility], [address], [place], [address], 3 00:08:38 urinalysis, dipstick 2022 023 [email or web address] Main Office, [address] [place] [address], [address], [place], [address], 3 08:17:15 CMP, serum or plasma 2022 023 [facility], [address], [place], [address], 3 02:43:02 CBC w/ auto diff 2022 023 [facility], [address], [place], [address], 3 23:00:03 Referral gastroenter ologist referral [email or web address] [place] [address] [facility], [address] [place], [address], 3 10:21:28 Procedures None recorded. Surgeries None recorded. Imaging MRI, lumbar spine, w/o contrast - Pt has failed conservativ e 6 weeks therapy 20[email or web address] [place] [address] [facility] [address], [place], [address], 4 14:17:59 Medication Orders Bactrim DS 800 mg-160 mg tablet 2023 024 [id number], [address] [facility], [place], [address], 4 12:02:53 Patient TargetsNo targets recorded. Patient InstructionsNo instructions recorded. Reason for Referral Training Director Referral for Irritable bowel syndrome Referring Physician: Orville Matos, Family Medicine, Encounter Date: 02/06/2023 Results Created Date Observation Date Name Description Value Unit Range Abnormal Flag Note LastModifiedBy Organization Detail LastModifiedTime 12/12/19 23 12/11/2022 COMPL ETE CBC WITH DIFF WBC 7.1 K/mm3 (4.0-1 1.0) Not Available [facility] [address] [place], [address], 12/11/2022 23:00:03 12/12/19 23 12/11/2022 COMPL ETE CBC WITH DIFF RBC 4.61 M/mm3 (4.20- 5.40) Not Available [facility] [address] [place], [address], 12/11/2022 23:00:03 12/12/19 23 12/11/2022 COMPL ETE CBC WITH DIFF HGB 14.1 gm/dL (11.7- 15.5) Not Available [facility] [address] [place], [address], 12/11/2022 23:00:03 12/12/19 23 12/11/2022 COMPL ETE CBC WITH DIFF HCT 43.4 % (35.7- 45.8) Not Available [facility] [address] [place], [address], 12/11/2022 23:00:03 12/12/19 23 12/11/2022 COMPL ETE CBC WITH DIFF MCV 94.1 fL (80.0- 100.0) Not Available [facility] [address] [place], [address], 12/11/2022 23:00:03 12/12/19 23 12/11/2022 COMPL ETE CBC WITH DIFF MCH 30.6 pg (27.0- 34.0) Not Available [facility] [address] [place], [address], 12/11/2022 23:00:03 12/12/19 23 12/11/2022 COMPL ETE CBC WITH DIFF MCHC 32.5 g/dL (33.0- 37.0) low Not Available [facility] [address] [place], [address], 12/11/2022 23:00:03 12/12/19 23 12/11/2022 COMPL ETE CBC WITH DIFF plt 276 K/mm3 (150-4 60) Not Available [facility] [address] [place], [address], 12/11/2022 23:00:03 12/12/19 23 12/11/2022 COMPL ETE CBC WITH DIFF RDW-SD 44.8 fL (<47.0 ) Not Available [facility] [address] [place], [address], 12/11/2022 23:00:03 12/12/19 23 12/11/2022 COMPL ETE CBC WITH DIFF MPV 9.5 fL (9.4-1 2.4) Not Available [facility] [address] [place], [address], 12/11/2022 23:00:03 12/12/19 23 12/11/2022 COMPL ETE CBC WITH DIFF automated NRBC 0.0 #/100 _WBC' s Not Available [facility] [address] [place], [address], 12/11/2022 23:00:03 12/12/19 23 12/11/2022 COMPL ETE CBC WITH DIFF abs. NRBC 0.0 K/mm3 Not Available [facility] [address] [place], [address], 12/11/2022 23:00:03 12/12/19 23 12/11/2022 COMPL ETE CBC WITH DIFF neut # 3.6 K/mm3 (1.3-7 .0) Not Available [facility] [address] [place], [address], 12/11/2022 23:00:03 12/12/19 23 12/11/2022 COMPL ETE CBC WITH DIFF lymph # 2.7 K/mm3 (0.8-3 .1) Not Available [facility] [address] [place], [address], 12/11/2022 23:00:03 12/12/19 23 12/11/2022 COMPL ETE CBC WITH DIFF mono# 0.5 K/mm3 (0.4-0 .9) Not Available [facility] [address] [place], [address], 12/11/2022 23:00:03 12/12/19 23 12/11/2022 COMPL ETE CBC WITH DIFF eo # 0.2 K/mm3 (0.0-0 .4) Not Available [facility] [address] [place], [address], 12/11/2022 23:00:03 12/12/19 23 12/11/2022 COMPL ETE CBC WITH DIFF baso # 0.1 K/mm3 (0.0-0 .1) Not Available [facility] [address] [place], [address], 12/11/2022 23:00:03 12/12/19 23 12/11/2022 COMPL ETE CBC WITH DIFF abs. imm gran 0.0 K/mm3 Not Available [facility] [address] [place], [address], 12/11/2022 23:00:03 12/12/19 23 12/11/2022 COMPL ETE CBC WITH DIFF neut 50.8 % (44-76 ) Not Available [facility] [address] [place], [address], 12/11/2022 23:00:03 12/12/19 23 12/11/2022 COMPL ETE CBC WITH DIFF lymph 37.4 % (15-43 ) Not Available [facility] [address] [place], [address], 12/11/2022 23:00:03 12/12/19 23 12/11/2022 COMPL ETE CBC WITH DIFF monocyte 7.3 % (4.5-1 0.5) Not Available [facility] [address] [place], [address], 12/11/2022 23:00:03 12/12/19 23 12/11/2022 COMPL ETE CBC WITH DIFF eo 3.4 % (0-6) Not Available [facility] [address] [place], [address], 12/11/2022 23:00:03 12/12/19 23 12/11/2022 COMPL ETE CBC WITH DIFF baso 1.0 % (0-2) Not Available [facility] [address] [place], [address], 12/11/2022 23:00:03 12/12/19 23 12/11/2022 COMPL ETE CBC WITH DIFF imm gran 0.1 % Not Available [facility] [address] [place], [address], 12/11/2022 23:00:03 12/12/19 23 12/12/2022 COMPR EHENS DAVE METAB OLIC PANL glucose 96 mg/dL (70-99 ) Not Available [facility] [address] [place], [address], 12/12/2022 02:43:02 12/12/19 23 12/12/2022 COMPR EHENS DAVE METAB OLIC PANL BUN 20 mg/dL (8-23) Not Available [facility] [address] [place], [address], 12/12/2022 02:43:02 12/12/19 23 12/12/2022 COMPR EHENS DAVE METAB OLIC PANL creatinine 0.8 mg/dL (0.5-1 .0) Not Available [facility] [address] [place], [address], 12/12/2022 02:43:02 12/12/19 23 12/12/2022 COMPR EHENS DAVE METAB OLIC PANL sodium 142 mmol/ L (133-1 45) Not Available [facility] [address] [place], [address], 12/12/2022 02:43:02 12/12/19 23 12/12/2022 COMPR EHENS DAVE METAB OLIC PANL potassium 4.5 mmol/ L (3.6-5 .2) Not Available [facility] [address] [place], [address], 12/12/2022 02:43:02 12/12/19 23 12/12/2022 COMPR EHENS DAVE METAB OLIC PANL chloride 103 mmol/ L (98-10 7) Not Available [facility] [address] [place], [address], 12/12/2022 02:43:02 12/12/19 23 12/12/2022 COMPR EHENS DAVE METAB OLIC PANL bicarbonate 26 mmol/ L (22-29 ) Not Available [facility] [address] [place], [address], 12/12/2022 02:43:02 12/12/19 23 12/12/2022 COMPR EHENS DAVE METAB OLIC PANL anion gap 13 (4-17) Not Available [facility] [address] [place], [address], 12/12/2022 02:43:02 12/12/19 23 12/12/2022 COMPR EHENS DAVE METAB OLIC PANL albumin 4.7 gm/dL (3.4-4 .8) Not Available [facility] [address] [place], [address], 12/12/2022 02:43:02 12/12/1912/12/2022 COMPR EHENS DAVE METAB OLIC PANL calcium 9.8 mg/dL (8.6-1 0.5) Not Available [facility] [address] [place], [address], 12/12/2022 02:43:02 12/12/19 12/12/2022 COMPR EHENS DAVE METAB OLIC PANL bilirubin,to rodrigo 1.1 mg/dL (0-1.2 ) Not Available [facility] [address] [place], [address], 12/12/2022 02:43:02 12/12/19 23 12/12/2022 COMPR EHENS DAVE METAB OLIC PANL total protein 6.6 gm/dL (6.2-8 .2) Not Available [facility] [address] [place], [address], 12/12/2022 02:43:02 12/12/19 23 12/12/2022 COMPR EHENS DAVE METAB OLIC PANL Ag ratio 2.5 Not Available [facility] [address] [place], [address], 12/12/2022 02:43:02 12/12/19 23 12/12/2022 COMPR EHENS DAVE METAB OLIC PANL AST 27 U/L (0-32) Not Available [facility] [address] [place], [address], 12/12/2022 02:43:02 12/12/19 23 12/12/2022 COMPR EHENS DAVE METAB OLIC PANL alk phos 62 U/L (35-10 4) Not Available [facility] [address] [place], [address], 12/12/2022 02:43:02 12/12/19 23 12/12/2022 COMPR EHENS DAVE METAB OLIC PANL ALT 22 U/L (0-33) Not Available [facility] [address] [place], [address], 12/12/2022 02:43:02 12/12/19 23 12/12/2022 COMPR EHENS DAVE METAB OLIC PANL estimated GFR creatinine 76 mL/mi n/1.7 3_M2 Creat inine based estim ated glome rular filtr ation (eGFR ) in adult s is calcu lated using the Natio nal Kidne y Found ation recom raya d 2020 CKD-E PI equat ion. Estim ates GFR from serum creat inine , age and sex. Not Available [facility] [address], [place], [address], 12/12/2022 02:43:02 12/12/19 23 12/11/2022 urina lysis , dipst ick Leukocytes Negati ve Not Available Main Office [address] [address], [place], [address], 12/11/2022 13:25:40 12/12/19 23 12/11/2022 urina lysis , dipst ick Nitrite negati ve Not Available Main Office [address] [address], [place], [address], 12/11/2022 13:25:40 12/12/19 23 12/11/2022 urina lysis , dipst ick Urobilinogen Negati ve Not Available Main Office [address] [address], [place], [address], 12/11/2022 13:25:40 12/12/19 23 12/11/2022 urina lysis , dipst ick Protein Negati ve Not Available Main Office [address] [address], [place], [address], 12/11/2022 13:25:40 12/12/19 23 12/11/2022 urina lysis , dipst ick pH 6.0 Not Available Main Offic e [address] [address], [place], [address], 12/11/2022 13:25:40 12/12/19 23 12/11/2022 urina lysis , dipst ick Blood Negati ve Not Available Main Office [address] [address], [place], [address], 12/11/2022 13:25:40 12/12/19 23 12/11/2022 urina lysis , dipst ick Specific [place] 1.010 Not Available Main O ffice [address] [facility] [address], [place], [address], 12/11/2022 13:25:40 12/12/19 23 12/11/2022 urina lysis , dipst ick Ketone Negati ve Not Available Main Office [address] [facility] [address], [place], [address], 12/11/2022 13:25:40 12/12/19 23 12/11/2022 urina lysis , dipst ick Bilirubin Negati ve Not Available Main Office [address] [facility] [address], [place], [address], 12/11/2022 13:25:40 12/12/19 23 12/11/2022 urina lysis , dipst ick Glucose Negati ve Not Available Main Office [address] [facility] [address], [place], [address], 12/11/2022 13:25:40 12/12/19 23 12/11/2022 urina lysis , dipst ick Appearance clear Not Available Main Of fice [address] [facility] [address], [place], [address], 12/11/2022 13:25:40 12/12/19 23 12/11/2022 urina lysis , dipst ick Color garcia Not Available Main Offic e [address] [facility] [address], [place], [address], 12/11/2022 13:25:40 02/07/20 23 02/07/2023 TSH WITH REFLE X TO FT4 TSH 0.60 uIU/m L (0.4-4 .2) Not Available [facility] [address], [place], [address], 02/07/2023 00:08:37 01/28/20 24 01/29/2024 CBC WITH DIFFE RENTI AL/PL ATELE T WBC 8.3 x10e3 /uL 3.4-10 .8 Not Available [facility] ([facility]) [address] [facility], [place], [address], 01/30/2024 14:07:22 01/28/20 24 01/29/2024 CBC WITH DIFFE RENTI AL/PL ATELE T RBC 4.81 x10e6 /uL 3.77-5 .28 Not Available [facility] ([facility]) [address] [facility], [place], [address], 01/30/2024 14:07:22 01/28/20 24 01/29/2024 CBC WITH DIFFE RENTI AL/PL ATELE T hemoglobin 14.5 g/dL 11.1-1 5.9 Not Available [facility] ([facility]) [address] [facility], [place], [address], 01/30/2024 14:07:22 01/28/20 24 01/29/2024 CBC WITH DIFFE RENTI AL/PL ATELE T hematocrit 43.8 % 34.0-4 6.6 Not Available [facility] ([facility]) [address] [facility], [place], [address], 01/30/2024 14:07:22 01/28/20 24 01/29/2024 CBC WITH DIFFE RENTI AL/PL ATELE T MCV 91 fL 79-97 Not Available [facility] ([facility]) [address] [place], [address], 01/30/2024 14:07:22 01/28/20 24 01/29/2024 CBC WITH DIFFE RENTI AL/PL ATELE T MCH 30.1 pg 26.6-3 3.0 Not Available [facility] ([facility]) [address] [place], [address], 01/30/2024 14:07:22 01/28/20 24 01/29/2024 CBC WITH DIFFE RENTI AL/PL ATELE T MCHC 33.1 g/dL 31.5-3 5.7 Not Available [facility] ([facility]) [address] [facility], [place], [address], 01/30/2024 14:07:22 01/28/20 24 01/29/2024 CBC WITH DIFFE RENTI AL/PL ATELE T RDW 13.5 % 11.7-1 5.4 Not Available [facility] ([facility]) [address] [facility], [place], [address], 01/30/2024 14:07:22 01/28/20 24 01/29/2024 CBC WITH DIFFE RENTI AL/PL ATELE T platelets 300 x10e3 /uL 150-45 0 Not Available [facility] ([facility]) [address] [facility], [place], [address], 01/30/2024 14:07:22 01/28/20 24 01/29/2024 CBC WITH DIFFE RENTI AL/PL ATELE T neutrophils 59 % not estab. Not Available [facility] ([facility]) [address] [facility], [place], [address], 01/30/2024 14:07:22 01/28/20 24 01/29/2024 CBC WITH DIFFE RENTI AL/PL ATELE T lymphs 29 % not estab. Not Available [facility] ([facility]) [address] [facility], [place], [address], 01/30/2024 14:07:22 01/28/20 24 01/29/2024 CBC WITH DIFFE RENTI AL/PL ATELE T monocytes 7 % not estab. Not Available [facility] ([facility]) [address] [facility], [place], [address], 01/30/2024 14:07:22 01/28/20 24 01/29/2024 CBC WITH DIFFE RENTI AL/PL ATELE T eos 3 % not estab. Not Available [facility] ([facility]) [address] [facility], [place], [address], 01/30/2024 14:07:22 01/28/20 24 01/29/2024 CBC WITH DIFFE RENTI AL/PL ATELE T basos 1 % not estab. Not Available [facility] ([facility]) [address] [place], [address], 01/30/2024 14:07:22 01/28/20 24 01/29/2024 CBC WITH DIFFE RENTI AL/PL ATELE T immature cells 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 Not Available [facility] ([facility]) [address] [facility], [place], [address], 01/30/2024 14:07:22 01/28/20 24 01/29/2024 CBC WITH DIFFE RENTI AL/PL ATELE T neutrophils (absolute) 4.9 x10e3 /uL 1.4-7. 0 Not Available [facility] ([facility]) [address] [place], [address], 01/30/2024 14:07:22 01/28/20 24 01/29/2024 CBC WITH DIFFE RENTI AL/PL ATELE T lymphs (absolute) 2.4 x10e3 /uL 0.7-3. 1 Not Available [facility] ([facility]) [address] [place], [address], 01/30/2024 14:07:22 01/28/20 24 01/29/2024 CBC WITH DIFFE RENTI AL/PL ATELE T monocytes(ab solute) 0.6 x10e3 /uL 0.1-0. 9 Not Available [facility] ([facility]) [address] [place], [address], 01/30/2024 14:07:22 01/28/20 24 01/29/2024 CBC WITH DIFFE RENTI AL/PL ATELE T eos (absolute) 0.2 x10e3 /uL 0.0-0. 4 Not Available [facility] ([facility]) [address] [place], [address], 01/30/2024 14:07:22 01/28/20 24 01/29/2024 CBC WITH DIFFE RENTI AL/PL ATELE T baso (absolute) 0.1 x10e3 /uL 0.0-0. 2 Not Available [facility] ([facility]) [address] [facility], [place], [address], 01/30/2024 14:07:22 01/28/20 24 01/29/2024 CBC WITH DIFFE RENTI AL/PL ATELE T immature granulocytes 1 % not estab. Not Available [facility] ([facility]) [address] [facility], [place], [address], 01/30/2024 14:07:22 01/28/20 24 01/29/2024 CBC WITH DIFFE RENTI AL/PL ATELE T immature grans (abs) 0.0 x10e3 /uL 0.0-0. 1 Not Available [facility] ([facility]) [address] [facility], [place], [address], 01/30/2024 14:07:22 01/28/20 24 01/29/2024 CBC WITH DIFFE RENTI AL/PL ATELE T NRBC 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 Not Available [facility] ([facility]) [address] [facility], [place], [address], 01/30/2024 14:07:22 01/28/20 24 01/29/2024 CBC WITH DIFFE RENTI AL/PL ATELE T hematology comments: 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 Not Available [facility] ([facility]) [address] [facility], [place], [address], 01/30/2024 14:07:22 01/28/20 24 01/29/2024 COMP. METAB OLIC PANEL (14) glucose 85 mg/dL 70-99 Not Available [facility] ([facility]) [address] [facility], [place], [address], 01/30/2024 14:07:23 01/28/20 24 01/29/2024 COMP. METAB OLIC PANEL (14) BUN 15 mg/dL 8-27 Not Available [facility] ([facility]) [address] [place], [address], 01/30/2024 14:07:23 01/28/20 24 01/29/2024 COMP. METAB OLIC PANEL (14) creatinine 0.78 mg/dL 0.57-1 .00 Not Available [facility] ([facility]) [address] [place], [address], 01/30/2024 14:07:23 01/28/20 24 01/29/2024 COMP. METAB OLIC PANEL (14) eGFR 82 mL/mi n/1.7 3 >59 Not Available [facility] ([facility]) [address] [facility], [place], [address], 01/30/2024 14:07:23 01/28/20 24 01/29/2024 COMP. METAB OLIC PANEL (14) BUN/creatini ne ratio 19 12-28 Not Available [facility] ([facility]) [address] [facility], [place], [address], 01/30/2024 14:07:23 01/28/20 24 01/29/2024 COMP. METAB OLIC PANEL (14) sodium 140 mmol/ L 134-14 4 Not Available [facility] ([facility]) [address] [place], [address], 01/30/2024 14:07:23 01/28/20 24 01/29/2024 COMP. METAB OLIC PANEL (14) potassium 4.5 mmol/ L 3.5-5. 2 Not Available [facility] ([facility]) [address] [place], [address], 01/30/2024 14:07:23 01/28/20 24 01/29/2024 COMP. METAB OLIC PANEL (14) chloride 103 mmol/ L 96-106 Not Available [facility] ([facility]) [address], [place], [address], 01/30/2024 14:07:23 01/28/20 24 01/29/2024 COMP. METAB OLIC PANEL (14) carbon dioxide, total 19 mmol/ L 20-29 below low normal Not Available [facility] ([facility]) [address] [place], [address], 01/30/2024 14:07:23 01/28/20 24 01/29/2024 COMP. METAB OLIC PANEL (14) calcium 9.6 mg/dL 8.7-10 .3 Not Available [facility] ([facility]) [address] [place], [address], 01/30/2024 14:07:23 01/28/20 24 01/29/2024 COMP. METAB OLIC PANEL (14) protein, total 6.5 g/dL 6.0-8. 5 Not Available [facility] ([facility]) [address], [place], [address], 01/30/2024 14:07:23 01/28/20 24 01/29/2024 COMP. METAB OLIC PANEL (14) albumin 4.6 g/dL 3.9-4. 9 Not Available [facility] ([facility]) [address] [place], [address], 01/30/2024 14:07:23 01/28/20 24 01/29/2024 COMP. METAB OLIC PANEL (14) globulin, total 1.9 g/dL 1.5-4. 5 Not Available [facility] ([facility] [address] [place] [address], 01/30/2024 14:07:23 01/28/20 24 01/29/2024 COMP. METAB OLIC PANEL (14) bilirubin, total 1.0 mg/dL 0.0-1. 2 Not Available [facility] ([facility]) [address] [facility], [place], [address], 01/30/2024 14:07:23 01/28/20 24 01/29/2024 COMP. METAB OLIC PANEL (14) alkaline phosphatase 67 IU/L 44-121 Not Available [facility] ([facility]) [address], [place], [address], 01/30/2024 14:07:23 01/28/20 24 01/29/2024 COMP. METAB OLIC PANEL (14) AST (SGOT) 27 IU/L 0-40 Not Available [facility] ([facility]) [address], [place], [address], 01/30/2024 14:07:23 01/28/20 24 01/29/2024 COMP. METAB OLIC PANEL (14) ALT (SGPT) 21 IU/L 0-32 Not Available [facility] ([facility]) [address], [place], [address], 01/30/2024 14:07:23 01/28/20 24 01/29/2024 UA/M W/RFL X CULTU RE, ROUTI NE specific gravity 1.006 1.005- 1.030 Not Available [facility] ([facility]) [address], [place], [address], 01/30/2024 14:07:24 01/28/20 24 01/29/2024 UA/M W/RFL X CULTU RE, ROUTI NE pH 7.5 5.0-7. 5 Not Available [facility] ([facility]) [address], [place], [address], 01/30/2024 14:07:24 01/28/20 24 01/29/2024 UA/M W/RFL X CULTU RE, ROUTI NE urine-color Yellow yellow Not Available [facility] ([facility]) [address], [place], [address], 01/30/2024 14:07:24 01/28/20 24 01/29/2024 UA/M W/RFL X CULTU RE, ROUTI NE appearance Clear clear Not Available [facility] ([facility]) [address] [facility], [place], [address], 01/30/2024 14:07:24 01/28/20 24 01/29/2024 UA/M W/RFL X CULTU RE, ROUTI NE WBC esterase Trace negati ve abnormal Not Available [facility] ([facility]) [address] [facility], [place], [address], 01/30/2024 14:07:24 01/28/20 24 01/29/2024 UA/M W/RFL X CULTU RE, ROUTI NE protein Negati ve negati ve/tra ce Not Available [facility] ([facility]) [address] [facility], [place], [address], 01/30/2024 14:07:24 01/28/20 24 01/29/2024 UA/M W/RFL X CULTU RE, ROUTI NE glucose Negati ve negati ve Not Available [facility] ([facility]) [address] [facility], [place], [address], 01/30/2024 14:07:24 01/28/20 24 01/29/2024 UA/M W/RFL X CULTU RE, ROUTI NE ketones Negati ve negati ve Not Available [facility] ([facility]) [address] [facility], [place], [address], 01/30/2024 14:07:24 01/28/20 24 01/29/2024 UA/M W/RFL X CULTU RE, ROUTI NE occult blood Negati ve negati ve Not Available [facility] ([facility]) [address] [facility], [place], [address], 01/30/2024 14:07:24 01/28/20 24 01/29/2024 UA/M W/RFL X CULTU RE, ROUTI NE bilirubin Negati ve negati ve Not Available [facility] ([facility]) [address] [facility], [place], [address], 01/30/2024 14:07:24 01/28/20 24 01/29/2024 UA/M W/RFL X CULTU RE, ROUTI NE urobilinogen ,semi-qn 0.2 mg/dL 0.2-1. 0 Not Available [facility] ([facility]) [address] [facility], [place], [address], 01/30/2024 14:07:24 01/28/20 24 01/29/2024 UA/M W/RFL X CULTU RE, ROUTI NE nitrite, urine Negati ve negati ve Not Available [facility] ([facility]) [address] [facility], [place], [address], 01/30/2024 14:07:24 01/28/20 24 01/29/2024 UA/M W/RFL X CULTU RE, ROUTI NE microscopic examination See below: Micro scopi c was indic ated and was perfo rmed. Not Available [facility] ([facility]) [address] [facility], [place], [address], 01/30/2024 14:07:24 01/28/20 24 01/29/2024 UA/M W/RFL X CULTU RE, ROUTI NE WBC None seen /hpf 0 - 5 Not Available [facility] ([facility]) [address] [facility], [place], [address], 01/30/2024 14:07:24 01/28/20 24 01/29/2024 UA/M W/RFL X CULTU RE, ROUTI NE RBC None seen /hpf 0 - 2 Not Available [facility] ([facility]) [address] [facility], [place], [address], 01/30/2024 14:07:24 01/28/20 24 01/29/2024 UA/M W/RFL X CULTU RE, ROUTI NE epithelial cells (non renal) None seen /hpf 0 - 10 Not Available [facility] ([facility]) [address] [facility], [place], [address], 01/30/2024 14:07:24 08 24 01/29/2024 UA/M W/RFL X CULTU RE, ROUTI NE epithelial cells (renal) 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 Not Available [facility] ([facility]) [address] [facility], [place], [address], 01/30/2024 14:07:24 01/28/20 24 01/29/2024 UA/M W/RFL X CULTU RE, ROUTI NE casts None seen /lpf none seen Not Available [facility] ([facility]) [address] [facility], [place], [address], 01/30/2024 14:07:24 01/28/20 24 01/29/2024 UA/M W/RFL X CULTU RE, ROUTI NE cast type 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 Not Available [facility] ([facility]) [address] [facility], [place], [address], 01/30/2024 14:07:24 01/28/20 24 01/29/2024 UA/M W/RFL X CULTU RE, ROUTI NE crystals 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 Not Available [facility] ([facility]) [address] [facility], [place], [address], 01/30/2024 14:07:24 01/28/20 24 01/29/2024 UA/M W/RFL X CULTU RE, ROUTI NE crystal type 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 Not Available [facility] ([facility]) [address] [facility], [place], [address], 01/30/2024 14:07:24 01/28/20 24 01/29/2024 UA/M W/RFL X CULTU RE, ROUTI NE mucus threads 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 Not Available [facility] ([facility]) [address] [facility], [place], [address], 01/30/2024 14:07:24 01/28/20 24 01/29/2024 UA/M W/RFL X CULTU RE, ROUTI NE bacteria None seen none seen/f ew Not Available [facility] ([facility]) [address] [facility], [place], [address], 01/30/2024 14:07:24 01/28/20 24 01/29/2024 UA/M W/RFL X CULTU RE, ROUTI NE yeast 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 Not Available [facility] ([facility]) [address] [facility], [place], [address], 01/30/2024 14:07:24 01/28/20 24 01/29/2024 UA/M W/RFL X CULTU RE, ROUTI NE trichomonas 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 Not Available [facility] ([facility]) [address] [facility], [place], [address], 01/30/2024 14:07:24 01/28/20 24 01/29/2024 UA/M W/RFL X CULTU RE, ROUTI NE comment 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 Not Available [facility] ([facility]) [address] [facility], [place], [address], 01/30/2024 14:07:24 01/28/20 24 01/30/2024 UA/M W/RFL X CULTU RE, ROUTI NE urine culture, routine Final report Not Available [facility] ([facility]) [address] [facility], [place], [address], 01/30/2024 14:07:24 01/28/20 24 01/30/2024 UA/M W/RFL X CULTU RE ROUTI NE result 1 No growth Not Available [facility] ([facility]) [address] [facility], [place], [address], 01/30/2024 14:07:24 12/05/19 23 elect rocar diogr am No observ ation record ed. Main Office [address] [facility] [address], [place], [address], 12/04/2022 08:58:08 12/07/19 23 elect rocar diogr am No observ ation record ed. [email or web address] Main Office [address] [facility] [address], [place], [address], 12/11/2022 13:52:57 12/21/19 23 12/20/2022 US, abdom en, limit ed US RUQ Reason : R10.11 RUQ PAIN. COMPAR VANNESSA: CT of abdome n pelvis dated 022. FINDIN GS: The examin ation was techni deniz somewh at limite d due to the bowel gas. Liver: Normal in size and echote xture. No focal lesion . Smooth hepati c contou r. Gallbl adder: No gallst ones. Normal wall thickn ess. No perich olecys tic fluid. Negati ve Caldwell sign. Biliar y Tree: No intrah epatic or extrah epatic bile duct dilati on is identi fied. Common duct measur es: 0.3 cm. Pancre as: No abnorm ality in the visual ized portio ns of the pancre as. Right kidney : 9.1 cm in length . Normal parenc hymal echote xture and thickn ess. No hydron ephros is, stone or mass. IMPRES TURNER: Normal right upper quadra nt ultras ound. WSN: [id number] Orderi ng Physic eitan: Orville Matos Dictat ed By: Jeaneth Boone ra, MD Dictat ed Date/T karime: 12:32 p Review ed By: Jeaneth Boone ra, MD Signed By: Jeaneth Boone ra, MD Signed Date/T karime: 12:32 pm Transc ribed By: CSB Transc ribed Date/T karime: 12:30 pm Patien t Class: 5 AMANDA [facility] (Outpt Imaging) [address] [place], [address], 12/21/2022 14:43:27 09/03/19 24 09/01/2023 MRI, lumba r spine , w/o contr ast No observ ation record ed. [email or web address] [facility] [address] [place], [address], 01/28/2024 11:53:03 01/30/20 24 01/30/2024 CT ABD/p elijah w/ IV contr ast only CT Abd/Pe lvis W/ IV Contra st Only Reason : R10.30 , LOWER ABD PAIN; Clinic al Questi on(s): Other: TECHNI QUE: Spiral CT throug h the abdome n and pelvis with IV contra st format marlen in 3 planes . 100 cc of Omnipa que 300 was admini stered intrav enousl y. This study was perfor med withou t oral contra st. Weight -based protoc ol using automa tic tube modula tion was used to optimi ze exposu re parame ters. COMPAR VANNESSA: 2022, 022 FINDIN GS: [employer] Manager View Findin gs, Lines and Tubes: None. Visual ized Chest: Lung bases are clear. No pleura l effusi on. The heart is normal in size. No perica rdial effusi on. Diaphr agm: Normal . Liver: Mild hepati c steato sis. Gallbl adder: No CT eviden ce of gallbl adder pathol ogy. Bile ducts: No biliar y ductal dilati on. Spleen : Normal . Pancre as: Possib le pancre atic divisu m, otherw ise unrema rkable . Adrena l glands : Normal . Kidney s and ureter s: No hydron ephros is, stones , or suspic ious masses . Bladde r: Normal . Reprod uctive organs : Unrema rkable . Stomac h, small bowel, and large bowel: Modera te sigmoi d divert iculos is. Modera te stool retent ion. The stomac h is underd istend ed. Unrema rkable duoden um. The small bowel loops are predom inantl y collap sed. No eviden ce of divert iculit is or coliti s. Append ix: Normal . Perito neum and retrop eriton eum: No ascite s or pneumo perito neum. No omenta l or mesent sally lesion s. Lymph nodes: No enlarg ed lymph nodes. Blood vessel s: Mild vascul ar calcif icatio ns but no aneury sm. No eviden ce of venous thromb osis. Abdomi nal and pelvic wall: Unrema rkable . Bones: No acute abnorm ality. IMPRES TURNER: No acute intra- abdomi nal pathol ogy is identi fied on CT. No eviden ce of acute divert iculit is or coliti s. Normal append ix. Mild hepati c steato sis. Modera te stool retent ion sugges tive of consti pation . WSN: [id number] Orderi ng Physic eitan: Orville Matos Dictat ed By: Akshat Lea MD Dictat ed Date/T karime: 4:23 pm Review ed By: Akshat Lea MD Signed By: Akshat Lea MD Signed Date/T karime: 4:23 pm Transc ribed By: ELIAZAR Transc ribed Date/T karime: 4:20 pm Patien t Class: 5 [facility] (Outpt Imaging) [address] [facility], [place], [address], 01/31/2024 09:46:52 02/12/20 24 02/07/2024 CT, abdom en + pelvi s, w/ contr ast No observ ation record ed. [email or web address] Not Available 02/11 14:42:51 Result Notes None recorded. Problems Name Problem SNOMED Code Status Onset Date Resolution Date Notes Provider Name and Address Organization Details Recorded Time Essential hypertension 25765550 Active 2020 Not Available [facility] 2 23:16:02 Acquired hypothyroidi sm 822012191 Active 2020 Not Available [facility] 2 23:16:02 Idiopathic peripheral neuropathy 77849266 Active 2022 Orvillecailin Matos, [address], [place], , [place] [facility] 3 06:08:58 Irritable bowel syndrome 38252689 Active 2022 Orvillecailin Matos, [address], [place], , [place] [facility] 3 06:08:59 Occipital headache 822803 Active 2022 Orvillecailin Matos, [address], [place], , [place] [facility] 3 06:09:08 Chronic dtkc-FEQDK-7 9 syndrome 4748381303 Active 2021 Orvillecailin Matos, [address], [place], , [place] [facility] 2 06:24:15 Problem Notes None recorded. Procedures Surgical History None recorded. Imaging Results Imaging Date Name Status LastModified by Organization Details LastModified Time 12/04/2022 electrocardiogram completed [email or web address] Main Of [address], [place], [address], 12/04/2022 08:58:08 12/06/2022 electrocardiogram completed [email or web address] Main Of [address], [place], [address], 12/11/2022 13:52:57 12/20/2022 US, abdomen, limited completed [facility] (Outpt Imaging) [address] [place], [address], 12/21/2022 14:43:27 09/01/2023 MRI, lumbar spine, w/o contrast completed [email or web address] [place] [address] [facility]ri Center [address] [place], [address], 01/28/2024 11:53:03 01/30/2024 CT ABD/pelvis w/ IV contrast only completed [facility] (Outpt Imaging) [address] [place], [address], 01/31/2024 09:46:52 02/07/2024 CT, abdomen + pelvis, w/ contrast completed [email or web address] Information not available 02/12/2024 14:42:51 Procedure Notes None recorded. Medical Equipment None Reported. Allergies Allergen ID Allergen Name Allergen Category Reaction Reaction Severity Criticality Documentation Date Start Date Code Code System Note Provider Name and Address Organization Details Recorded Time 2227 penicilli n V Not available Not available Not available Not available 04/11/2022 7984 RxNorm React ion: Unkno wn, sever ity: Unkno wn Not Available [facility] 2 03:50:36 421 Product containin g penicilli n and antibioti c (product) medicatio n Not available Not available Not available 09/20/2021 17575 05 SNOMED Shoshana Kip adrian [place] [facility] 13:53:58 Medications Name Sig Start Date Stop Date Status Note LastModified by Organization Details LastModified Time valacyclovi r 1 gram tablet TAKE 1 TABLET BY MOUTH THREE TIMES A DAY FOR 7 DAYS 2024 active Not Available Not Available Not Avai lable amlodipine 2.5 mg tablet Oral for 12/03 completed Not Available Not Available Not Available sulfamethox azole 800 mg-trimetho prim 160 mg tablet TAKE 1 TABLET BY MOUTH EVERY 12 HOURS FOR 5 DAYS active Not Available Not Available No t Available liothyronin e 5 mcg tablet Oral for 12/03 completed Not Available Not Available Not Available levothyroxi ne 75 mcg tablet TAKE 1 TABLET BY MOUTH EVERY DAY IN THE MORNING ON EMPTY STOMACH FOR 90 DAYS 2023 active Not Available Not Available Not Avai lable citalopram 20 mg tablet Take 1 tablet every day by oral route for 30 days. 12/28 completed Not Available Not Available Not Available baclofen 10 mg tablet TAKE 1 TABLET BY MOUTH TWICE A DAY FOR 5 DAYS 02/06 completed Not Available Not Available Not Available pantoprazol e 40 mg tablet,deon yed release 1 TABLET ORALLY ONCE A DAY FOR 90 DAYS 02/06 completed Not Available Not Available Not Available sertraline 25 mg tablet Take 1 tablet every day by oral route for 30 days. 02/06 completed Not Available Not Available Not Available doxycycline hyclate 100 mg tablet TAKE 1 TABLET BY MOUTH TWICE A DAY FOR 7 DAYS 02/06 completed Not Available Not Available Not Available nitrofurant oin monohydrate /macrocryst als 100 mg capsule TAKE 1 CAPSULE BY MOUTH EVERY 12 HOURS WITH FOOD 12/03 completed Not Available Not Available Not Available GaviLyte-G 236 gram-22.74 gram-6.74 gram-5.86 gram oral solution 12/03 completed Not Available Not Available Not Available Readi-Cat 2 2 % (w/v) oral suspension TAKE DIRECTED BY PRESCRIBE R'S OFFICE active Not Available Not Available No t Available Vitals Date Recorded Body height Oxygen saturation Oxygen saturation in Arterial blood by Pulse oximetry Heart rate Systolic blood pressure Diastolic blood pressure Provider Name and Address Organization Details Last Updated DateTime 3 165.1 cm 98 % 98 % 77 /min 142 mm[Hg] 76 mm[Hg] Inocencia Hatfield [place] [facility] 3 13:20:07 Date Recorded Systolic blood pressure Diastolic blood pressure Provider Name and Address Organization Details Last Updated DateTime 12/11/2022 130 mm[Hg] 76 mm[Hg] Orville Matos, DO [address] [facility], [place], [address], [place] [facility] 12/11/2022 13:53:08 Date Recorded Body height Respiratory rate Body mass index (BMI) Body weight Oxygen saturation Oxygen saturation in Arterial blood by Pulse oximetry Heart rate Systolic blood pressure Diastolic blood pressure Provider Name and Address Organization Details Last Updated DateTime 3 165.1 cm 20 /min 26.9 kg/m2 59373.4 7 g 97 % 97 % 78 /min 118 mm[Hg] 66 mm[Hg] Jacinta Guardado [facility] 3 14:23:52 Date Recorded Body height Body mass index (BMI) Body weight Oxygen saturation Oxygen saturation in Arterial blood by Pulse oximetry Heart rate Systolic blood pressure Diastolic blood pressure Provider Name and Address Organization Details Last Updated DateTime 3 165.1 cm 26.8 kg/m2 49326.0 7 g 95 % 95 % 80 /min 120 mm[Hg] 60 mm[Hg] Inocencia Hatfield [facility] 3 09:54:59 Date Recorded Body height Body mass index (BMI) Body weight Oxygen saturation Oxygen saturation in Arterial blood by Pulse oximetry Heart rate Systolic blood pressure Diastolic blood pressure Provider Name and Address Organization Details Last Updated DateTime 4 165.1 cm 27.3 kg/m2 97871.8 5 g 98 % 98 % 7 /min 128 mm[Hg] 74 mm[Hg] Inocencia Hatfield [facility] 4 11:38:50 Date Recorded Body height Body mass index (BMI) Body weight Oxygen saturation Oxygen saturation in Arterial blood by Pulse oximetry Heart rate Systolic blood pressure Diastolic blood pressure Provider Name and Address Organization Details Last Updated DateTime 4 165.1 cm 27.1 kg/m2 89401.2 6 g 97 % 97 % 78 /min 138 mm[Hg] 74 mm[Hg] Inocencia Hatfield [facility] 4 11:46:49 Social History Question Answer Notes LastModified by Organizat ion Details LastModified Time Tobacco Smoking Status [facility] 12/26/2021 14:55:40 Do You Have An Advance Directive? [email or web address] Information not available 12/26/2021 What Is Your Level Of Alcohol Consumption? None Information not available 12/26/2021 Are You Currently Employed? Yes formerly [employer] Information not available 12/26/2021 Do You Use Any Illicit Or Recreational Drugs? No Information not available 12/26/2021 Sex: Female Functional Status None recorded. Mental Status None recorded. Family History Relationship Description Onset Age of this Age Resolved Age Notes LastModified by Organization Details LastModified Time Father Alcohol abuse pt. added direct ly (12/24) [email or web address] Not available 12/24/2021 12:58:45 Father Heart disease pt. added direct ly (12/24) [email or web address] Not available 12/24/2021 12:59:02 Father Malignant neoplastic disease pt. added direct ly (12/24) [email or web address] Not available 12/24/2021 12:59:12 Father Myocardial infarction pt. added direct ly (12/24) [email or web address] Not available 12/24/2021 13:00:25 Maternal Grandmother Arthritis pt. added direct ly (12/24) [email or web address] Not available 12/24/2021 12:59:33 Sister Arthritis pt. added direct ly (12/24) [email or web address] Not available 12/24/2021 12:59:33 Mother Arthritis pt. added direct ly (12/24) [email or web address] Not available 12/24/2021 12:59:33 Mother Dementia pt. added direct ly (12/03) [email or web address] Not available 12/03/2022 07:38:41 Paternal Grandmother Disorder of thyroid gland pt. added direct ly (12/24) [email or web address] Not available 12/24/2021 13:00:10 Medical History Condition Response Vision or Eye Problems Y Arthritis Y Reflux/GERD Y Polyps Y Headaches Y Stroke Y Thyroid Problems Y Diverticulitis Y Hypothyroidism Y GI Problems Y Gynecological HistoryNo gynecological history recorded. Obstetrics History GPAL:G 0 P 0 0 0 0 Immunizations Vaccine Type Date Status Note Provider Nam e and Address Organization Details Recorded Time zoster recombinant 3 completed Inocencia Alysia null, [place] [facility] 12/04/2022 08:22:33 zoster recombinant 2 completed Inocencia Alysia null, [place] [facility] 12/04/2022 08:22:33 Influenza, high-dose, quadrivalent, PF 2 completed Inocencia Alysia null, [place] [facility] 12/04/2022 08:22:33 COVID-19, mRNA, LNP-S, bivalent, PF, 50 mcg/0.5 mL or 25mcg/0.25 mL dose 2 completed Inocencia Alysia null, [place] [facility] 12/04/2022 08:22:33 Tdap 2 completed Inocencia Alysia null, [place] [facility] 12/04/2022 08:22:33 Influenza, high-dose, quadrivalent, PF 3 completed Inocencia Alysia null, [place] [facility] 08/16/2023 11:39:01 COVID-19, mRNA, LNP-S, PF, 50 mcg/0.5 mL 3 completed Inocencia Alysia null, [place] [facility] 08/16/2023 11:39:02 pneumococcal polysaccharide PPV23 6 completed Shoshana Niki null, [place] [facility] 12/23/2021 17:02:02 Influenza, split virus, quadrivalent, PF 0 completed Shoshana Niki null, [place] [facility] 12/23/2021 17:02:02 Influenza, high-dose, quadrivalent, PF 1 completed Shoshana Niki null, [place] [facility] 12/23/2021 17:02:02 Influenza, MDCK, quadrivalent, preservative 9 completed Shoshana Niki null, [place] [facility] 12/23/2021 17:02:02 COVID-19, mRNA, LNP-S, PF, 100 mcg/0.5mL dose or 50 mcg/0.25mL dose 1 completed Shoshana Niki null, [place] [facility] 12/23/2021 17:02:02 COVID-19, mRNA, LNP-S, PF, 100 mcg/0.5mL dose or 50 mcg/0.25mL dose 1 completed Shoshana Niki null, [place] [facility] 12/23/2021 17:02:02 Pneumococcal conjugate PCV 13 9 completed Shoshana Niki null, [place] [facility] 12/23/2021 17:02:02 COVID-19, mRNA, LNP-S, PF, 100 mcg/0.5mL dose or 50 mcg/0.25mL dose completed Shoshana adrian [place] [facility] 12/23/2021 17:02:02 Past Encounters Encounter ID Performer Location Encounter Start Date Encounter Closed Date Diagnosis/Indication Diagnosis SNOMED-CT Code Diagnosis ICD10 Code Diagnosis Note [id number] Orville Matos DO Main Office [address] [place] [address] [address] [place] [address] 08/08/2021 08:24:28 08/08/2021 15:18:40 Hypothyroidism 91705908 E03.9 Pain of ri ght knee joint 3422666856 00687 M25.561 Pain in ri ght hip joint 9135307425 50076 M25.551 [id number] Orville Matos DO Main Office [address] [place] [address] [address] [place] [address] 09/20/2021 13:44:44 09/21/2021 11:41:16 Chronic pduq-BKVZT-10 syndrome 5873677968 Z86.16 [id number] Orville Matos DO Main Office [address] [place] [address] [address] [place] [address] 12/26/2021 14:49:23 12/26/2021 15:41:32 Irritable bowel syndrome 64990563 K58.9 [id number] Orville Matos DO Main Office [address] [place] [address] [address] [place] [address] 02/06/2022 10:12:37 02/06/2022 11:27:54 Adult health examination 004317761 Z00.00 Screening for cardiovascular system disease 365863055 Z13.6 Screening for malignant neoplasm of colon 182071377 Z12.11 Screening for osteoporosis 321033067 Z13.820 Screening mammography 24 384046 Z12.31 Active or passive immunization 811713693 Z23 Hepatitis C screening 41 8129900 Z11.59 Hypothyroidism 55468908 E03.9 Depression screening 171 564103 Z13.31 [id number] Orville Matos DO Main Office [address] [place] [address] [address] [place] [address] 12/04/2022 08:14:03 12/04/2022 09:26:58 Cervical radiculopathy 35911714 M54.12 Tight chest 22310135 R07 .89 [id number] Orville Matos, DO Main Office [address] [place] [address] [address] [place] [address] 12/11/2022 13:09:57 12/11/2022 15:56:51 Low back pain 550652831 M54.50 Genital he rpes simplex 38222150 A60.9 [id number] Orville Matos DO Main Office [address] [place] [address] [place] [address] 02/06/2023 14:11:11 02/06/2023 15:01:27 Irritable bowel syndrome 80787221 K58.9 Gastroesop hageal reflux disease 521113263 K21.9 Hypothyroidism 05020286 E03.9 Chronic low back pain 27 3960306 M54.50 Abdominal pain 43551535 R10.9 Epigastric pain 77890686 R10.13 [id number] Orville Matos, DO Main Office [address] [place] [address] [place] [address] 03/20/2023 09:39:13 03/20/2023 15:27:38 Acquired hypothyroidism 420611469 E03.[address]-COVID-19 syndrome 8073865895 Z86.16 Irritable bowel syndrome 72308470 K58.9 Idiopathic peripheral neuropathy 87724108 G60.9 Occipital headache 46360 7 R51.9 [id number] Orville Matos DO Main Office [address] [place] [address] [place] [address] 08/16/2023 11:28:37 08/16/2023 12:27:50 Lumbar radiculopathy 461010828 M54.16 Essential hypertension 67961734 I10 Idiopathic peripheral neuropathy 03364767 G60.9 Irritable bowel syndrome 04514220 K58.9 [id number] Orville Matos DO Main Office [address] [place] [address] [address] [place] [address] 01/28/2024 11:36:55 01/28/2024 12:11:48 Chronic low back pain 280491130 M54.[address] Matos. See patient case on 05/21/23. Abdominal pain 10544877 R10.9 Health Concerns Section Related Observation LastModified by Organization Detai ls LastModified Time None Recorded Concern Status LastModified by Organization Details LastModified Time None Recorded Advance Directives Directive Y: Payers Encounter Date Sequence Insurance Name Policy Number Policy Ariza Covered Member ID Ariza Member ID Guarantor Name 12/11/2022 2 [place] [id number] (MEDICARE SUPPLEMENT) [id number] 1 Tran A A [place] [id number] Tran A Sarah 12/11/2022 1 [place] [employer] Tran A Sarah [id number] Tran A [place] 02/06/2023 2 [place] [address] (MEDICARE SUPPLEMENT) [id number] 1 Tran [place] [id number] Tran A [place] 02/06/2023 1 MEDICARE [facility]: NATIONAL GOVERNMENT SERVICES Tran A Sarah [id number] Tran A [place] 03/20/2023 2 [place] [address] (MEDICARE SUPPLEMENT) [id number] 1 Tran [place] [id number] Tran A [place] 03/20/2023 1 MEDICARE [facility]: NATIONAL GOVERNMENT SERVICES Tran A [place] [id number] Tran A [place] 08/16/2023 2 [place] [address] (MEDICARE SUPPLEMENT) [id number] 1 Tran [place] [id number] Tran A [place] 08/16/2023 1 [place] [employer] Trna A [place] [id number] Tran A Sarah 01/28/2024 2 [facility] 1 (MEDICARE SUPPLEMENT) [id number] 1 Tran A A [place] [id number] Tran A [place] 01/28/2024 1 [place] [employer] Tran A [place] [id number] Tran A [place] Notes Date Note Type Note Provider Name and Address Organization Details Recorded Time 12/11/2022 text/html Low back pain since Sunday, right-sided with radiation around to the front of the abdomen. No nausea, vomiting, diarrhea. Concerned that this is a kidney infection. Also having a herpes virus genital outbreak at this time. This is typically well controlled the valacyclovir without any concerning side effects. Orville Matos, DO 1 [facility], [place], [address], [facility] 12/11/2022 14:05:27 02/06/2023 text/html Amy is here fo r follow-up of multiple chronic problems, mostly GI in nature. She is concerned about irregular bowel movements and irritable bowel syndrome. She has not had any success with changing her diet and adding fiber. She reports some days with normal stool, but some days with 7 or 8 stools per day with incomplete emptying. She has had a recent colonoscopy and endoscopy are nonconcerning. She denies any vomiting, significant diarrhea, watery stools. She also has multiple other chronic complaints related to low back pain, Abdominal pain, a feeling of a lump in her throat with swallowing. No weight loss or concerning red flag GI symptoms. She also reports a heaviness with breathing, but no chest pain. This happens at rest, no history of cardiac issues. Also reports some chronic headaches without any signs of aura, or neurologic deficits. Orville Matos, DO 1 [facility],[address], [place], [address], [facility] 02/07/2023 06:15:46 03/20/2023 text/html He is here with multiple complaints occluding occipital headaches, neuropathy which she describes as a numbness and tingling toes, and worsening irritable bowel syndrome. She has multiple, frequent soft stools throughout the day. She has not had any benefit from the high-fiber or FODMAPs diet. She does report one episode recently of stool seen in her urine. She describes her urine as dark. She did not see actual formed pieces of feces in her stool. She does have a second GI evaluation pending however had a personal appointment back in March. She denies any focal abdominal pain. She denies any other focal neurologic symptoms. No changes in her cognition. Neuropathy only affects her distal toes. She has good sensation, good color in her feet. No history of diabetes. She also does report occasional occipital headaches without aura that usually resolves with stretching and hxdl-qjg-jofghvc pain medications. Orville Matos, 1 [facility],[address], [place], [address], [facility] 03/22/2023 06:13:48 08/16/2023 text/html 68 y/o female wi th PMHc hypothyroidism, IBS, peripheral neuropathy, HTN, headache, presenting to discuss several issues. Orville Matos, 1 [facility],[address], [place], [address], [facility] 08/18/2023 14:30:52 OBGyn Episode No OBEpisode recorded.
== END 2024-09-05 12:17 | disposition home or self-care (01) ==
PROVIDERS: PCP Family Medicine; Visit Provider Internal Medicine
DX: M25.562 Pain in left knee (principal)
CPT/HCPCS: 99213

== ENCOUNTER → 2024-09-05 11:25 | Outpatient (BNVA) | payer MEDICARE, OTHER, SELFPAY | PROVIDERS: PCP Family Medicine; Visit Provider Internal Medicine | DX: M25.562 Pain in left knee (principal) | CPT/HCPCS: 99212 ==

== ENCOUNTER 2024-09-18 17:46 | Outpatient (REF) | payer MEDICARE, OTHER, SELFPAY ==
--- NOTE | ~2024-09-18 | MR_ITS ---
EXAMINATION: MRI LEFT KNEE WITHOUT CONTRAST HISTORY: Pain COMPARISON: There are no prior studies for comparison. TECHNIQUE: Coronal T1 and fat-suppressed proton density, sagittal proton density and fat-suppressed proton density, and axial fat suppressed T2 weighted MR images of the left knee were obtained. FINDINGS: Bone marrow: There is a 3.4 x 1.9 x 2.0 cm flocculent lesion in the distal femoral metaphysis which demonstrates ring and arc shaped hypointensities consistent with calcified matrix. Findings are most consistent with an enchondroma or bone infarct. There is a small cyst in the posterior central tibial plateau. Bone marrow signal intensity is otherwise normal. Joint effusion: There is a trace suprapatellar joint effusion. Littlejohn's cyst: There is a small Littlejohn's cyst. Articular cartilage: There is mild to moderate osteoarthritis of the patellofemoral compartment with cartilage loss and subchondral marrow changes. The cartilage of the medial and lateral compartments is preserved. Muscles/soft tissues: The visualized muscles demonstrate normal signal intensity. Anterior cruciate ligament: Intact Posterior cruciate ligament: Intact Medial collateral ligament: Intact Lateral collateral ligament: Intact Medial meniscus: Intact Lateral meniscus: Intact Flexor mechanism: The popliteus, gastrocnemius, and hamstring tendons are intact. Quadriceps tendon: Intact Patellar tendon: Intact Patellar retinacula: Intact MR/MR knee LT wo con IMPRESSION: 1. Mild to moderate osteoarthritis of the patellofemoral compartment. 2. 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 3. Trace suprapatellar joint effusion. Small Littlejohn's cyst. Electronically signed by: Tariq Wiseman MD 09/19/2024 07:32 AM [facility]
--- OUTSIDE RECORDS SUMMARY | 2024-09-18 19:42 | XMS_ITS | Continuity of Care Document ---
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 - Trigger finger in the left hand, contributing to finger locking and discomfort. - No evidence of rheumatoid arthritis observed during the encounter. Plan - Arrange a consultation with Dr. Chilel, a hand surgeon, to evaluate the ongoing hand pain and arthritis. Dr. Chilel is noted for her expertise in managing such conditions and will provide a comprehensive assessment and potential treatment options, including injections if necessary. - Discuss the option of administering a steroid injection into the thumb joint to alleviate arthritis symptoms. This can be considered during the current visit or deferred until after the consultation with Dr. Chilel, depending on patient preference and tolerance for waiting. - Schedule a follow-up appointment with Dr. Chilel promptly to ensure timely evaluation and management of the hand condition. The appointment should be arranged soon, considering the patient's travel plans in early September. Appointments - Appointment with Dr. Chilel, hand surgeon, to be scheduled in the next few days. [id number] Not available 09/10/2024 10:08:42 Plan of Treatment Reminders Order Date Submit Date Provider Last Modified By Organization Details Last Modified Time Details Appointments None recorded. Lab None recorded. Referral hand surgeon referral - [address] [place] [address] General Surgery Scheduling Dept, [facility] [place], [address], 5 14:19:40 Procedures None recorded. Surgeries None recorded. Imaging None recorded. Medication Orders None recorded. Patient TargetsNo targets recorded. Patient InstructionsNo instructions recorded. Reason for Referral Hand Surgeon Referral for Tr igger finger of left hand Referring Physician: Orville Matos, Family Medicine, Encounter Date: 09/10/2024 Problems Name Problem SNOMED Code Status Onset Date Resolution Date Notes Provider Name and Address Organization Details Recorded Time Essential hypertension 44173485 Active 2020 Not Available [facility] 2 23:16:02 Acquired hypothyroidi sm 169569799 Active 2020 Not Available [facility] 2 23:16:02 Idiopathic peripheral neuropathy 24395846 Active 2022 Orville Matos DO [address], [place], [address] , [place] [facility] 3 06:08:58 Irritable bowel syndrome 15372171 Active 2022 Orville Matos DO [address], [place], [address] , [place] [facility] 3 06:08:59 Occipital headache 260480 Active 2022 Orville Matos DO [address], [place], [address] , [place] [facility] 3 06:09:08 Chronic muyj-SUMON-8 9 syndrome 8799837052 Active 2021 Orville Matos DO [address], [place], [address] , [place] [facility] 2 06:24:15 Problem Notes None recorded. Medical Equipment None Reported. Allergies Allergen ID Allergen Name Allergen Category Reaction Reaction Severity Criticality Documentation Date Start Date Code Code System Note Provider Name and Address Organization Details Recorded Time 2227 penicilli n V Not available Not available Not available Not available 04/11/2022 7984 RxNorm React ion: Unkno wn, sever ity: Unkno wn Not Available [facility] 2 03:50:36 421 Product containin g penicilli n (product) medicatio n Not available Not available Not available 09/20/2021 43441 8001 SNOMED Shoshana Kip adrian, [facility] 2 13:53:58 Medications Name Sig Start Date Stop Date Status Note LastModified by Organization Details LastModified Time valacyclovi r 1 gram tablet TAKE 1 TABLET BY MOUTH 3 TIMES A DAY FOR 7 DAYS active Not Available Not Available No t Available amlodipine 2.5 mg tablet Oral for 90 12/03 completed Not Available Not Available Not Available sulfamethox azole 800 mg-trimetho prim 160 mg tablet TAKE 1 TABLET BY MOUTH EVERY 12 HOURS FOR 5 DAYS 09/10 completed Not Available Not Available Not Available liothyronin e 5 mcg tablet Oral for 12/03 completed Not Available Not Available Not Available levothyroxi ne 75 mcg tablet TAKE 1 TABLET BY MOUTH EVERY DAY IN THE MORNING ON EMPTY STOMACH FOR 90 DAYS active Not Available Not Available No t Available oxycodone-a cetaminophe n 5 mg-325 mg tablet TAKE 1 TAB ORALLY EVERY 8 HOURS NEEDED FOR PAIN PARTIAL FILL UPON PATIENT REQUEST. 09/10 completed Not Available Not Available Not Available citalopram 20 mg tablet Take 1 tablet [...] suspension TAKE DIRECTED BY PRESCRIBE R'S OFFICE 09/10 completed Not Available Not Available Not Available Vitals Date Recorded Body height Body mass index (BMI) Body weight Oxygen saturation Oxygen saturation in Arterial blood by Pulse oximetry Heart rate Systolic blood pressure Diastolic blood pressure Provider Name and Address Organization Details Last Updated DateTime 5 165.1 cm 27.8 kg/m2 02566.6 3 g 99 % 99 % 76 /min 128 mm[Hg] 74 mm[Hg] Inocencia Hatfield [facility] 5 09:35:44 Social History Question Answer Notes LastModified by Organizat ion Details LastModified Time Tobacco Smoking Status [facility] 12/26/2021 14:55:40 Do You Have An Advance Directive? Yes [email or web address] Information not available 12/26/2021 What Is Your Level Of Alcohol Consumption? None Information not available 12/26/2021 Are You Currently Employed? Yes Information not available 12/26/2021 Do You Use [...] Vision or Eye Problems Y Arthritis Y Polyps Y Stroke Y Thyroid Problems Y Diverticulitis Y Hypothyroidism Y GI Problems Y Reflux/GERD Y Headaches Y Gynecological HistoryNo gynecological history recorded. Obstetrics [...] 11:39:02 pneumococcal polysaccharide PPV23 6 completed Shoshana Prince null, [place] [facility] 12/23/2021 17:02:02 [...] null, [place] [facility] 12/23/2021 17:02:02 Past Encounters Encounter ID Performer Location Encounter Start Date Encounter Closed Date Diagnosis/Indication Diagnosis SNOMED-CT Code Diagnosis ICD10 Code Diagnosis Note [id number] Orvillecailin Matos, Main Office [address] [place] [address],[address] [facility] [place] [address] 09/10/2024 09:23:20 09/10/2024 10:08:41 Pain of left hand 8776664946 04032 M79.642 Trigger fi nger of left hand 2597087090 8557067 M65.30 Acquired hypothyroidism 866188731 E03.9 Chronic low back pain 27 3830991 M54.50 Has neuro follow up Pain of le ft knee joint 1385130816 24663 M25.562 ortho f/u, reviewed poc Health Concerns Section Related Observation LastModified by Organization Detai ls LastModified Time None Recorded Concern Status LastModified by Organization Details LastModified Time None Recorded Payers Encounter Date Sequence Insurance Name Policy Number Policy Ariza Covered Member ID Ariza Member ID Guarantor Name 09/10/2024 2 [facility] PLAN 1 (MEDICARE SUPPLEMENT) [id number] 1 Tran Smith [id number] Tran Martinezon 09/10/2024 1 [place] [facility] Tran Smith [id number] Tran Smith Notes Date Note Type Note Provider Name and Address Organization Details Recorded Time 09/10/2024 text/html - Anni Smith , 69-year-old female. - Left hand pain, particularly at the base of the thumb, ongoing for the past month. - Pain is constant, sore, and worsens with movement; ibuprofen and heat application provide no relief. - Trigger finger symptoms with clicking and locking of a finger. - Severe shooting pain through the back of the left hand, occurring spontaneously with certain movements, lasting 3 to 5 minutes. - History of arthritis in hands, with worsening symptoms and crooked fingers. - Recent episodes of severe pain started a couple of weeks ago, with increased frequency. - Previous back procedure improved back pain but did not resolve all issues. - Burning sensation in the knee, with a history of a lesion noted on an MRI from 12 years ago. Orville Matos, DO 1 [facility],[address], [place], [address], [place] [facility] 09/10/2024 10:09:06 OBGyn Episode No OBEpisode recorded.
--- OUTSIDE RECORDS SUMMARY | 2024-09-18 19:42 | XMS_ITS | Data Portability ---
Author Organization [facility], [employer] Address [address] [place] [id number] Care Team Providers Care Housefellow Name Role Phone ORVILLE MATOS Primary Care Provider [phone] Assessment Encounter Date Assessment Date Assessment LastModified by Organization Details LastModified Time 02/06/2023 02/06/2023 Clinical exam is completely reassuring. [...] be stress related in nature. We discussed [id number]-[id number] regimens in detail. Headaches do not resemble [...] and/or Morbidity and Mortality of Patient Management: [email or web address] Not available 02/07/2023 06:15:34 03/20/2023 03/20/2023 Reviewed [...] and/or Morbidity and Mortality of Patient Management: nidia Not available 03/22/2023 06:13:44 08/16/2023 08/16/2023 Discussed below problems in detail. Radicular lumbar back pain without improvement with 6 weeks conservative therapy including PT and medications. Xrays have been unrevealing. Pending f/u with spine specialists. Discussed other below chronic problems including meds in detail. Has GI f/u. No new focal concerns. Discussed med treatment options in detail. Not interested in further med interventions. 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 Lab CBC w/ auto diff 2023 024 [facility], [address], [place], [address], 4 14:07:23 CMP, serum or plasma 2023 024 AMANDA [facility], [address], [place], [address], 4 14:07:24 urinalysis complete, reflex culture 2023 024 AMANDA [facility], [address], [place], [address], 4 14:07:25 TSH, serum or plasma 2022 023 AMANDA [facility] (Centralized Electronic Ordering - All Locations), Patient Can Go To The Location Of Their Choice, [address] 3 00:08:38 Referral hand surgeon referral - [address] General Surgery Scheduling Dept, [address] [place], [address], 5 14:19:40 gastroenter ologist referral [address] [place] [address] Gastroenterol ogy, [address] [place] [address], [address], 3 10:21:28 Procedures None recorded. Surgeries None recorded. Imaging MRI, lumbar spine, w/o contrast - Pt has failed conservativ e 6 weeks therapy 2023 024 jordon 4 [facility] [address] [facility], [place], [address], 4 14:17:59 Medication Orders Bactrim DS 800 mg-160 mg tablet 2023 025 [id number], [address] [place], [address], 5 09:34:35 Patient TargetsNo targets recorded. Patient InstructionsNo instructions recorded. Reason for Referral Glue Drier Operator Referral for Irritable bowel syndrome Referring Physician: Orville Matos, [facility], Encounter Date: 02/06/2023 Hand Surgeon Referral for Tr igger finger of left hand Referring Physician: Orville Matos, [facility], Encounter Date: 09/10/2024 Results Created Date Observation Date Name Description Value Unit Range Abnormal Flag Note LastModifiedBy Organization Detail LastModifiedTime 02/07/2002/07/2023 TSH WITH REFLE X TO FT4 TSH 0.60 uIU/m L (0.4-4 .2) Not Available [facility] (Centralized Electronic Ordering - All Locations) Patient Can Go To The Location Of Their Choice, [id number] 02/07/2023 00:08:37 01/28/20 24 01/29/2024 CBC WITH DIFFE RENTI AL/PL ATELE T WBC 8.3 x10e3 /uL 3.4-10 .8 Not Available [facility] ([facility]) [address] [place], [address], 01/30/2024 14:07:22 01/28/20 24 01/29/2024 CBC WITH DIFFE RENTI AL/PL ATELE T RBC 4.81 x10e6 /uL 3.77-5 .28 Not Available [facility] ([facility]) [address] [place], [address], 01/30/2024 14:07:22 01/28/20 24 01/29/2024 CBC WITH DIFFE RENTI AL/PL ATELE T hemoglobin 14.5 g/dL 11.1-1 5.9 Not Available [facility] ([facility]) [address] [place], [address], 01/30/2024 14:07:22 01/28/20 24 01/29/2024 CBC WITH DIFFE RENTI AL/PL ATELE T hematocrit 43.8 % 34.0-4 6.6 Not Available [facility] ([facility]) [address] [place], [address], 01/30/2024 14:07:22 01/28/20 24 01/29/2024 CBC WITH DIFFE RENTI AL/PL ATELE T MCV 91 fL 79-97 Not Available [facility] ([facility]) [address] [facility], [place], [address], 01/30/2024 14:07:22 01/28/20 24 01/29/2024 CBC WITH DIFFE RENTI AL/PL ATELE T MCH 30.1 pg 26.6-3 3.0 Not Available [facility] ([facility]) [address] [facility], [place], [address], 01/30/2024 14:07:22 01/28/20 24 01/29/2024 CBC WITH DIFFE RENTI AL/PL ATELE T MCHC 33.1 g/dL 31.5-3 5.7 Not Available [facility] ([facility]) [address] [facility], [place], [address], 01/30/2024 14:07:22 01/28/20 24 01/29/2024 CBC WITH DIFFE RENTI AL/PL ATELE T RDW 13.5 % 11.7-1 5.4 Not Available [facility] ([facility]) [address] [facility], [place], [address], 01/30/2024 14:07:22 01/28/20 24 01/29/2024 CBC WITH DIFFE RENTI AL/PL ATELE T platelets 300 x10e3 /uL 150-45 0 Not Available [facility] ([facility]) [address] [facility], [place], [address], 01/30/2024 14:07:22 01/28/20 24 01/29/2024 CBC WITH DIFFE RENTI AL/PL ATELE T neutrophils 59 % not estab. Not Available [facility] ([facility]) [address] [facility], [place], [address], 01/30/2024 14:07:22 01/28/20 24 01/29/2024 CBC WITH DIFFE RENTI AL/PL ATELE T lymphs 29 % not estab. Not Available [facility] ([facility]) [address] [facility], [place], [address], 01/30/2024 14:07:22 01/28/20 24 01/29/2024 CBC WITH DIFFE RENTI AL/PL ATELE T monocytes 7 % not estab. Not Available [facility] ([facility]) [address] [facility], [place], [address], 01/30/2024 14:07:22 01/28/20 24 01/29/2024 CBC WITH DIFFE RENTI AL/PL ATELE T eos 3 % not estab. Not Available [facility] ([facility]) [address] [facility], [place], [address], 01/30/2024 14:07:22 01/28/20 24 01/29/2024 CBC WITH DIFFE RENTI AL/PL ATELE T basos 1 % not estab. Not Available [facility] ([facility]) [address] [facility], [place], [address], 01/30/2024 14:07:22 01/28/20 24 01/29/2024 CBC WITH DIFFE RENTI AL/PL ATELE T immature cells MEDICAL BILLING SPECIALIST Not Available [facility] ([facility]) [address] [facility], [place], [address], 01/30/2024 14:07:22 01/28/20 24 01/29/2024 CBC WITH DIFFE RENTI AL/PL ATELE T neutrophils (absolute) 4.9 x10e3 /uL 1.4-7. 0 Not Available [facility] ([facility]) [address] [facility], [place], [address], 01/30/2024 14:07:22 01/28/20 24 01/29/2024 CBC WITH DIFFE RENTI AL/PL ATELE T lymphs (absolute) 2.4 x10e3 /uL 0.7-3. 1 Not Available [facility] ([facility]) [address] [facility], [place], [address], 01/30/2024 14:07:22 01/28/20 24 01/29/2024 CBC WITH DIFFE RENTI AL/PL ATELE T monocytes(ab solute) 0.6 x10e3 /uL 0.1-0. 9 Not Available [facility] ([facility]) [address] [facility], [place], [address], 01/30/2024 14:07:22 01/28/20 24 01/29/2024 CBC WITH DIFFE RENTI AL/PL ATELE T eos (absolute) 0.2 x10e3 /uL 0.0-0. 4 Not Available [facility] ([facility]) [address] [facility], [place], [address], 01/30/2024 14:07:22 01/28/20 24 01/29/2024 CBC WITH DIFFE RENTI AL/PL ATELE T baso (absolute) 0.1 x10e3 /uL 0.0-0. 2 Not Available [facility] ([facility]) [address] [facility], [place], [address], 01/30/2024 14:07:22 01/28/20 24 01/29/2024 CBC WITH DIFFE RENTI AL/PL ATELE T immature granulocytes 1 % not estab. Not Available [facility] ([facility]) [address] [facility], [place], [address], 01/30/2024 14:07:22 01/28/20 24 01/29/2024 CBC WITH DIFFE RENTI AL/PL ATELE T immature grans (abs) 0.0 x10e3 /uL 0.0-0. 1 Not Available [facility] ([facility]) [address] [facility], [place], [address], 01/30/2024 14:07:22 01/28/20 24 01/29/2024 CBC WITH DIFFE RENTI AL/PL ATELE T NRBC MEDICAL BILLING SPECIALIST Not Available [facility] ([facility]) [address] [facility], [place], [address], 01/30/2024 14:07:22 01/28/20 24 01/29/2024 CBC WITH DIFFE RENTI AL/PL ATELE T hematology comments: MEDICAL BILLING SPECIALIST Not Available [facility] ([facility]) [address] [facility], [place], [address], 01/30/2024 14:07:22 01/28/20 24 01/29/2024 COMP. METAB OLIC PANEL (14) glucose 85 mg/dL 70-99 Not Available [facility] ([facility]) [address] [facility], [place], [address], 01/30/2024 14:07:23 01/28/20 24 01/29/2024 COMP. METAB OLIC PANEL (14) BUN 15 mg/dL 8-27 Not Available [facility] ([facility]) [address] [facility], [place], [address], 01/30/2024 14:07:23 01/28/20 24 01/29/2024 COMP. METAB OLIC PANEL (14) creatinine 0.78 mg/dL 0.57-1 .00 Not Available [facility] ([facility]) [address] [facility], [place], [address], 01/30/2024 14:07:23 01/28/20 24 01/29/2024 COMP. METAB OLIC PANEL (14) eGFR 82 mL/mi n/1.7 3 >59 Not Available [facility] ([facility]) [address] [place], [address], 01/30/2024 14:07:23 01/28/20 24 01/29/2024 COMP. METAB OLIC PANEL (14) BUN/creatini ne ratio 19 12-28 Not Available [facility] ([facility]) [address] [place], [address], 01/30/2024 14:07:23 01/28/20 24 01/29/2024 COMP. METAB OLIC PANEL (14) sodium 140 mmol/ L 134-14 4 Not Available [facility] ([facility]) [address] [place], [address], 01/30/2024 14:07:23 01/28/20 24 01/29/2024 COMP. METAB OLIC PANEL (14) potassium 4.5 mmol/ L 3.5-5. 2 Not Available [facility] ([facility]) [address] [place], [address], 01/30/2024 14:07:23 01/28/20 24 01/29/2024 COMP. METAB OLIC PANEL (14) chloride 103 mmol/ L 96-106 Not Available [facility] ([facility]) [address] [place], [address], 01/30/2024 14:07:23 01/28/20 24 01/29/2024 COMP. METAB OLIC PANEL (14) carbon dioxide, total 19 mmol/ L 20-29 below low normal Not Available [facility] ([facility]) [address] [place], [address], 01/30/2024 14:07:23 01/28/20 24 01/29/2024 COMP. METAB OLIC PANEL (14) calcium 9.6 mg/dL 8.7-10 .3 Not Available [facility] ([facility]) [address] [place], [address], 01/30/2024 14:07:23 01/28/20 24 01/29/2024 COMP. METAB OLIC PANEL (14) protein, total 6.5 g/dL 6.0-8. 5 Not Available [facility] ([facility]) [address] [place], [address], 01/30/2024 14:07:23 01/28/20 24 01/29/2024 COMP. METAB OLIC PANEL (14) albumin 4.6 g/dL 3.9-4. 9 Not Available [facility] ([facility]) [address] [facility], [place], [address], 01/30/2024 14:07:23 01/28/20 24 01/29/2024 COMP. METAB OLIC PANEL (14) globulin, total 1.9 g/dL 1.5-4. 5 Not Available [facility] ([facility]) [address] [facility], [place], [address], 01/30/2024 14:07:23 01/28/20 24 01/29/2024 COMP. METAB OLIC PANEL (14) bilirubin, total 1.0 mg/dL 0.0-1. 2 Not Available [facility] ([facility]) [address] [facility], [place], [address], 01/30/2024 14:07:23 01/28/20 24 01/29/2024 COMP. METAB OLIC PANEL (14) alkaline phosphatase 67 IU/L 44-121 Not Available [facility] ([facility]) [address] [facility], [place], [address], 01/30/2024 14:07:23 01/28/20 24 01/29/2024 COMP. METAB OLIC PANEL (14) AST (SGOT) 27 IU/L 0-40 Not Available [facility] ([facility]) [address] [facility], [place], [address], 01/30/2024 14:07:23 01/28/20 24 01/29/2024 COMP. METAB OLIC PANEL (14) ALT (SGPT) 21 IU/L 0-32 Not Available [facility] ([facility]) [address] [facility], [place], [address], 01/30/2024 14:07:23 01/28/20 24 01/29/2024 UA/M W/RFL X CULTU RE, ROUTI NE specific gravity 1.006 1.005- 1.030 Not Available [facility] ([facility]) [address] [facility], [place], [address], 01/30/2024 14:07:24 01/28/20 24 01/29/2024 UA/M W/RFL X CULTU RE, ROUTI NE pH 7.5 5.0-7. 5 Not Available [facility] ([facility]) [address] [facility], [place], [address], 01/30/2024 14:07:24 01/28/20 24 01/29/2024 UA/M W/RFL X CULTU RE, ROUTI NE urine-color Yellow yellow Not Available [facility] ([facility]) [address] [facility], [place], [address], 01/30/2024 14:07:24 01/28/20 24 01/29/2024 UA/M W/RFL X CULTU RE, ROUTI NE appearance Clear clear Not Available [facility] ([facility]) [address] [facility], [place], [address], 01/30/2024 14:07:24 01/28/20 24 01/29/2024 UA/M W/RFL X CULTU RE, ROUTI NE WBC esterase Trace negati ve abnormal Not Available [facility] ([facility]) [address] [place], [address], 01/30/2024 14:07:24 01/28/20 24 01/29/2024 UA/M W/RFL X CULTU RE, ROUTI NE protein Negati ve negati ve/tra ce Not Available [facility] ([facility]) [address] [place], [address], 01/30/2024 14:07:24 01/28/20 24 01/29/2024 UA/M W/RFL X CULTU RE, ROUTI NE glucose Negati ve negati ve Not Available [facility] ([facility]) [address] [place], [address], 01/30/2024 14:07:24 01/28/20 24 01/29/2024 UA/M W/RFL X CULTU RE, ROUTI NE ketones Negati ve negati ve Not Available [facility] ([facility]) [address] [place], [address], 01/30/2024 14:07:24 01/28/20 24 01/29/2024 UA/M W/RFL X CULTU RE, ROUTI NE occult blood Negati ve negati ve Not Available [facility] ([facility]) [address] [place], [address], 01/30/2024 14:07:24 01/28/20 24 01/29/2024 UA/M W/RFL X CULTU RE, ROUTI NE bilirubin Negati ve negati ve Not Available [facility] ([facility]) [address] [place], [address], 01/30/2024 14:07:24 01/28/20 24 01/29/2024 UA/M W/RFL X CULTU RE, ROUTI NE urobilinogen ,semi-qn 0.2 mg/dL 0.2-1. 0 Not Available [facility] ([facility]) [address] [place], [address], 01/30/2024 14:07:24 01/28/20 24 01/29/2024 UA/M W/RFL X CULTU RE ROUTI NE nitrite, urine Negati ve negati ve Not Available [facility] ([facility]) [address] [place], [address], 01/30/2024 14:07:24 01/28/20 24 01/29/2024 UA/M W/RFL X CULTU RE, ROUTI NE microscopic examination See below: Micro scopi c was indic ated and was perfo rmed. Not Available [facility] ([facility]) [address], [place], [address], 01/30/2024 14:07:24 01/28/20 24 01/29/2024 UA/M W/RFL X CULTU RE, ROUTI NE WBC None seen /hpf 0 - 5 Not Available [facility] ([facility]) [address] [facility], [place], [address], 01/30/2024 14:07:24 01/28/20 24 01/29/2024 UA/M W/RFL X CULTU RE, ROUTI NE RBC None seen /hpf 0 - 2 Not Available [facility] ([facility]) [address], [place], [address], 01/30/2024 14:07:24 01/28/20 24 01/29/2024 UA/M W/RFL X CULTU RE, ROUTI NE epithelial cells (non renal) None seen /hpf 0 - 10 Not Available [facility] ([facility]) [address] [facility], [place], [address], 01/30/2024 14:07:24 01/28/20 24 01/29/2024 UA/M W/RFL X CULTU RE, ROUTI NE epithelial cells (renal) MEDICAL BILLING SPECIALIST Not Available [facility] ([facility]) [address] [facility], [place], [address], 01/30/2024 14:07:24 01/28/20 24 01/29/2024 UA/M W/RFL X CULTU RE, ROUTI NE casts None seen /lpf none seen Not Available [facility] ([facility]) [address] [facility], [place], [address], 01/30/2024 14:07:24 01/28/20 24 01/29/2024 UA/M W/RFL X CULTU RE, ROUTI NE cast type MEDICAL BILLING SPECIALIST Not Available [facility] ([facility]) [address] [facility], [place], [address], 01/30/2024 14:07:24 01/28/20 24 01/29/2024 UA/M W/RFL X CULTU RE, ROUTI NE crystals MEDICAL BILLING SPECIALIST Not Available [facility] ([facility]) [address] [facility], [place], [address], 01/30/2024 14:07:24 01/28/20 24 01/29/2024 UA/M W/RFL X CULTU RE, ROUTI NE crystal type MEDICAL BILLING SPECIALIST Not Available [facility]) [address] [facility], [place], [address], 01/30/2024 14:07:24 01/28/20 24 01/29/2024 UA/M W/RFL X CULTU RE, ROUTI NE mucus threads MEDICAL BILLING SPECIALIST Not Available [facility] ([facility]) [address] [facility], [place], [address], 01/30/2024 14:07:24 01/28/20 24 01/29/2024 UA/M W/RFL X CULTU RE, ROUTI NE bacteria None seen none seen/f ew Not Available [facility] ([facility]) [address] [facility], [place], [address], 01/30/2024 14:07:24 01/28/20 24 01/29/2024 UA/M W/RFL X CULTU RE, ROUTI NE yeast MEDICAL BILLING SPECIALIST Not Available [facility] ([facility]) [address] [facility], [place], [address], 01/30/2024 14:07:24 01/28/20 24 01/29/2024 UA/M W/RFL X CULTU RE, ROUTI NE trichomonas MEDICAL BILLING SPECIALIST Not Available [facility] ([facility]) [address] [facility], [place], [address], 01/30/2024 14:07:24 01/28/20 24 01/29/2024 UA/M W/RFL X CULTU RE, ROUTI NE comment MEDICAL BILLING SPECIALIST Not Available [facility] ([facility]) [address] [facility], [place], [address], 01/30/2024 14:07:24 01/28/20 24 01/29/2024 UA/M W/RFL X CULTU RE, ROUTI NE microscopic examination MEDICAL BILLING SPECIALIST Not Available [facility]) [address] [facility], [place], [address], 01/30/2024 14:07:24 01/28/20 24 01/29/2024 UA/M W/RFL X CULTU RE, ROUTI NE urinalysis reflex Commen t This speci men has refle xed to a Urine Cultu re. Not Available [facility] ([facility]) [address] [facility], [place], [address], 01/30/2024 14:07:24 01/28/20 24 01/30/2024 UA/M W/RFL X CULTU RE, ROUTI NE urine culture, routine Final report Not Available [facility] ([facility]) [address] [facility], [place], [address], 01/30/2024 14:07:24 01/28/20 24 01/30/2024 UA/M W/RFL X CULTU RE, ROUTI NE result 1 No growth Not Available [facility] ([facility]) [address] [facility], [place], [address], 01/30/2024 14:07:24 09/03/19 24 09/01/2023 MRI, lumba r spine , w/o contr ast No observ ation record ed. [email or web address] [facility] [address], [place], [address], 01/28/2024 11:53:03 01/30/20 24 01/30/2024 CT ABD/p [...] ters. COMPAR VANNESSA: 2022, 022 FINDIN GS: Senior Planning Analyst View Findin gs, Lines and Tubes: None. [...] karime: 4:20 pm Patien t Class: 5 [facility]) [address] [facility], [place], [address], 01/31/2024 09:46:52 02/12/20 24 02/07/2024 CT, abdom en + pelvi s, w/ contr ast No observ ation record ed. [email or web address] Not Available 02/11 14:42:51 Result Notes None recorded. Problems Name Problem SNOMED Code Status Onset Date Resolution Date Notes Provider Name and Address Organization Details Recorded Time Essential hypertension 71138193 Active 2020 Not Available [facility] 2 23:16:02 Acquired hypothyroidi sm 745862545 Active 2020 Not Available [facility] 2 23:16:02 Idiopathic peripheral neuropathy 17421800 Active 2022 Orville Matos, [address], [place], [address] , [place] [facility] 3 06:08:58 Irritable bowel syndrome 92068169 Active 2022 Orville Matos DO [address], [place], [address] , [place] [facility] 3 06:08:59 Occipital headache 940466 Active 2022 Orville Matos DO [address], [place], [address] , [place] [facility] 3 06:09:08 Chronic vvfp-VJNDH-3 9 syndrome 1422164553 Active 2021 Orville Bert Matso, DO [address], [place], [address] , [place] [facility] 2 06:24:15 Problem Notes None recorded. Procedures Surgical History None recorded. Imaging Results Imaging Date Name Status LastModified by Organiz ation Details LastModified Time 09/01/2023 MRI, lumbar spine, w/o contrast completed [email or web address] [place] [address] [facility] [address] [place] [address], [address], 01/28/2024 11:53:03 01/30/2024 CT ABD/pelvis w/ IV contrast only completed [facility]) [address] [place] [address], [address], 01/31/2024 09:46:52 02/07/2024 CT, abdomen + pelvis, [...] wn, sever ity: Unkno wn Not Available formerly [facility] 2 03:50:36 421 Product containin g penicilli n (product) medicatio n Not available Not available Not available 09/20/2021 13806 [id number] SNOMED Shoshana Lamontagn e null, [place] [facility] 2 13:53:58 Medications Name Sig Start [...] liothyronin e 5 mcg tablet Oral for 90 12/03 completed Not [...] Not Available Vitals Date Recorded Body height Respiratory rate Body mass index (BMI) Body weight Oxygen saturation Oxygen saturation in Arterial blood by Pulse oximetry Heart rate Systolic blood pressure Diastolic blood pressure Provider Name and Address Organization Details Last Updated DateTime 3 165.1 cm 20 /min 26.9 kg/m2 24203.4 7 g 97 % 97 % 78 /min 118 mm[Hg] 66 mm[Hg] Jacinta Guardado [place] [facility] 3 14:23:52 Date Recorded Body height Body mass index (BMI) Body weight Oxygen saturation Oxygen saturation in Arterial blood by Pulse oximetry Heart rate Systolic blood pressure Diastolic blood pressure Provider Name and Address Organization Details Last Updated DateTime 3 165.1 cm 26.8 kg/m2 23840.0 7 g 95 % 95 % 80 /min 120 mm[Hg] 60 mm[Hg] Inocencia [place] [facility] 3 09:54:59 Date Recorded Body height Body mass index (BMI) Body weight Oxygen saturation Oxygen saturation in Arterial blood by Pulse oximetry Heart rate Systolic blood pressure Diastolic blood pressure Provider Name and Address Organization Details Last Updated DateTime 4 165.1 cm 27.3 kg/m2 91231.8 5 g 98 % 98 % 7 /min 128 mm[Hg] 74 mm[Hg] Inocencia [place] [facility] 4 11:38:50 Date Recorded Body height Body mass index (BMI) Body weight Oxygen saturation Oxygen saturation in Arterial blood by Pulse oximetry Heart rate Systolic blood pressure Diastolic blood pressure Provider Name and Address Organization Details Last Updated DateTime 4 165.1 cm 27.1 kg/m2 43680.2 6 g 97 % 97 % 78 /min 138 mm[Hg] 74 mm[Hg] Inocencia [place] [facility] 4 11:46:49 Date Recorded Body height Body mass index (BMI) Body weight Oxygen saturation Oxygen saturation in Arterial blood by Pulse oximetry Heart rate Systolic blood pressure Diastolic blood pressure Provider Name and Address Organization Details Last Updated DateTime 5 165.1 cm 27.8 kg/m2 95514.6 3 g 99 % 99 % 76 /min 128 mm[Hg] 74 mm[Hg] Inocencia [place] [facility] 5 09:35:44 Social History Question Answer Notes LastModified by Organizat ion Details LastModified Time Tobacco Smoking Status Never Smoker Shoshana adrian [facility] 12/26/2021 14:55:40 Do You Have An Advance Directive? Yes Information not available 12/26/2021 What Is Your [...] Recorded Time zoster recombinant 3 completed Inocencia adrian [place] [facility] 12/04/2022 08:22:33 zoster recombinant 2 completed Inocencia adrian [place] [facility] 12/04/2022 08:22:33 Influenza, high-dose, quadrivalent, PF [...] 17:02:02 Pneumococcal conjugate PCV 13 9 completed [facility]oshanacailin [facility] 12/23/2021 17:02:02 COVID-19, mRNA, LNP-S, PF, 100 mcg/0.5mL dose or 50 mcg/0.25mL dose 1 completed Shoshana adrianARIC [facility] 12/23/2021 17:02:02 Past Encounters Encounter ID Performer Location Encounter Start Date Encounter Closed Date Diagnosis/Indication Diagnosis SNOMED-CT Code Diagnosis ICD10 Code Diagnosis Note [id number] Orville Matos DO Main Office [address] [place] [address] [address] [place] [address] 08/08/2021 08:24:28 08/08/2021 15:18:40 Hypothyroidism 23853751 E03.9 Pain of ri ght knee joint 6469894990 25017 M25.561 Pain in ri ght hip joint 5773543539 21931 M25.551 1945 Orville Matos DO Main Office [address] [place] [address] 220 [place] [place] [address] 09/20/2021 13:44:44 09/21/2021 11:41:16 Chronic gire-TCLBP-54 syndrome 8378441300 Z86.16 [id number] Orville Matos DO Main Office [address] [place] [address] 220 [place] [address] 12/26/2021 14:49:23 12/26/2021 15:41:32 Irritable bowel syndrome 37547110 K58.9 [id number] Orville Matos DO Main Office [address] [place] [address] 220 [place] [place] [address] 02/06/2022 10:12:37 02/06/2022 11:27:54 Adult health examination 262756387 Z00.00 Screening for cardiovascular system disease 624696067 Z13.6 Screening for malignant neoplasm of colon 022336635 Z12.11 Screening for osteoporosis 006884149 Z13.820 Screening mammography 24 353419 Z12.31 Active or passive immunization 102496268 Z23 Hepatitis C screening 41 8909510 Z11.59 Hypothyroidism 82893611 E03.9 Depression screening 171 576146 Z13.31 [id number] Orville Matos DO Main Office [address] [place] [address] 220 [place] [address] 12/04/2022 08:14:03 12/04/2022 09:26:58 Cervical radiculopathy 35476158 M54.12 Tight chest 91198168 R07 .89 [id number] Orville Matos DO Main Office [address] [place] [address] [place] [address] 1 12/11/2022 13:09:57 12/11/2022 15:56:51 Low back pain 296250851 M54.50 Genital he rpes simplex 37464643 A60.9 [id number] Orville Matos DO Main Office [address] [place] [address] [place] [address] 02/06/2023 14:11:11 02/06/2023 15:01:27 Irritable bowel syndrome 67603693 K58.9 Gastroesop hageal reflux disease 273502791 K21.9 Hypothyroidism 37469228 E03.9 Chronic low back pain 27 6085912 M54.50 Abdominal pain 77576847 R10.9 Epigastric pain 93987633 R10.13 [id number] Orville Matos DO Main Office [address] [place] [address] [place] [address] 03/20/2023 09:39:13 03/20/2023 15:27:38 Acquired hypothyroidism 187458657 E03.[address]-COVID-19 syndrome 6801944702 Z86.16 Irritable bowel syndrome 66598096 K58.9 Idiopathic peripheral neuropathy 71995925 G60.9 Occipital headache 03237 7 R51.9 [id number] Orville Matos DO Main Office [address] [place] [address] [place] [address] 08/16/2023 11:28:37 08/16/2023 12:27:50 Lumbar radiculopathy 640195926 M54.16 Essential hypertension 14557467 I10 Idiopathic peripheral neuropathy 43066650 G60.9 Irritable bowel syndrome 25827242 K58.9 [id number] Orville Matos DO Main Office [address] [place] [address] [place] [address] 01/28/2024 11:36:55 01/28/2024 12:11:48 Chronic low back pain 816542595 M54.[address] Matos. See patient case on 05/21/23. Abdominal pain 07087218 R10.9 [id number] Orville Bert Matos DO Main Office [address] [place], [place] [address] [place] [address] 09/10/2024 09:23:20 09/10/2024 10:08:41 Pain of left hand 8808282351 58112 M79.642 Trigger fi nger of left hand 0260476039 9797008 M65.30 Acquired hypothyroidism 575258060 E03.9 Chronic low back pain 27 0237901 M54.50 Has neuro follow up Pain of le ft knee joint 7660970202 41352 M25.562 ortho f/u, reviewed poc Health Concerns Section Related Observation LastModified by Organization Detai ls LastModified Time None Recorded Concern Status LastModified by Organization Details LastModified Time None Recorded Advance Directives Directive Y: Payers Encounter Date Sequence Insurance Name Policy Number Policy Ariza Covered Member ID Ariza Member ID Guarantor Name 02/06/2023 2 [facility] - PL[facility] 1 (MEDICARE SUPPLEMENT) [id number] 1 Tran A A Sarah [id number] Tran A [place] 02/06/2023 1 MEDICARE B-MS: [employer] Tran A [place] [id number] Tran A Sarah 03/20/2023 2 [facility] - PLAN 1 (MEDICARE SUPPLEMENT) [id number] 1 Tran A A Sarah [id number] Tran A Sarah 03/20/2023 1 MEDICARE B-MS: [employer] Tran A [place] [id number] Tran A [place] 08/16/2023 2 [facility] - PLAN 1 (MEDICARE SUPPLEMENT) [id number] 1 Tran A A [place] [id number] Tran A Sarah 08/16/2023 1 MEDICARE B-MS: [employer] Tran A [place] [id number] Tran A Sarah 01/28/2024 2 [facility] - PLAN 1 (MEDICARE SUPPLEMENT) [id number] 1 Tran A A Sarah [id number] Tran Fiorella Sarah 01/28/2024 1 MEDICARE B-[place]: [facility] Tran A Sarah [id number] Tran Fiorella Sarah 09/10/2024 2 [facility] 1 (MEDICARE SUPPLEMENT) [id number] 1 Tran Fiorella Barros [place] [id number] Tran A [place] 09/10/2024 1 MEDICARE B-[place]: [facility] Tran A [place] [id number] Tran Fiorella Sarah Notes Date Note Type Note Provider Name and Address Organization Details Recorded Time 02/06/2023 text/html Amy is here fo r [...] or neurologic deficits. Orville Matos, DO [address] [facility],[address], [place], [address], [facility] 02/07/2023 06:15:46 03/20/2023 text/html He is [...] aura that usually resolves with stretching and iqbw-bjc-mobllgq pain medications. Orville Matos DO 1 [facility],[address], [place], [address], [place] [facility] 03/22/2023 06:13:48 08/16/2023 text/html 68 y/o female wi th PMHc hypothyroidism, IBS, peripheral neuropathy, HTN, headache, presenting to discuss several issues. Orville Matos DO 1 [facility], [place], [address], [place] [facility] 08/18/2023 14:30:52 09/10/2024 text/html - Anni Smith , 69-year-old [...] MRI from 12 years ago. Orville Matos, 1 [facility],[address], [place], [address], [place] [facility] 09/10/2024 10:09:06 OBGyn Episode No OBEpisode recorded.
--- OUTSIDE RECORDS SUMMARY | 2024-09-18 19:42 | XMS_ITS | Data Portability ---
Author Organization Formerly [facility] [employer] Address [address] [place] [address] [place] [address] Care Team Providers Care Orthotist Or Prosthetist Name Role Phone ORVILLE IBRAHIM Referring Provider Unavailable ORVILLE IBRAHIM Referring Provider [phone] ORVILLE IBRAHIM Primary Care Provider [phone] Assessment Encounter Date Assessment Date Assessment LastModified [...] Start physical therapy Citlali Tannerlieu PT [address] [place] [address] Ph. , You will need to call to schedule the first appointment Follow-up in about 2 months to do the trial of physical therapy Sarah with Dr. Valentino, impression and plan developed with him CC Dr Martinez, [facility] [place] [address] Not available 06/12/2023 17:58:03 08/21/2023 08/21/2023 IMPRESSION: [...] region CONTINUE physical therapy Citlali Riggins PT [address] [place] [address] Ph. , Follow-up as needed regarding headaches. We did not discuss medication management (nor injection management) If you wish to see us for low back pain radiating in to the left lower extremity (for which you are already working with physical therapy above) you will need to have primary care send a referral. We would request records from [facility] on any treatment/imaging to [...] 023 shyla 1 Citlali Riggins PT, [address] [place], [address], 4 10:22:42 Procedures None recorded. Surgeries None recorded. Imaging None recorded. Medication Orders None recorded. Patient TargetsNo targets recorded. Patient Instructions Encounter Date Encounter Id Patient Instructions Last Modified By Organization Details Last Modified Time 06/12/2023 [id number] Discussion acros s issues of diagnoses and management and same day associated chart review and management greater than 50% greater than 90 minutes Not available 06/12/2023 18:00:56 08/21/2023 [id number] Discussion acros s issues of diagnoses and [...] 08/21/2023 DATA REVIEW completed MEENA BULLARD PA-C [address] [place] [address], [phone], [facility] 08/21/2023 09:13:04 06/12/2023 DATA REVIEW completed MEENA BULLARD PA-C [address] [place] [address], [phone], [facility] 06/12/2023 17:37:28 Imaging Results None recorded. Procedure [...] Updated DateTime 06/12/2023 167.64 cm 25 kg/m2 49479.82 g 12 /min [facility] 06/12/2023 10:31:46 Social History Question Answer Notes LastModified by Organizat ion Details LastModified Time Tobacco Smoking Status Never Smoker [facility] 06/12/2023 10:33:19 What Is Your Level Of Alcohol Consumption? None [place] Information not available 06/12/2023 What Is Your Level Of Caffeine Consumption? None Information not available 06/12/2023 What Is The Highest Grade Or Level Of School You Have Completed Or The Highest Degree You Have Received? [id number] [facility] Information not available 06/12/2023 Which Of Your [...] SNOMED-CT Code Diagnosis ICD10 Code Diagnosis Note [id number] Serg Valentino MD [facility] [address] [place] [address] [place] [address] 06/12/2023 10:19:16 06/13/2023 12:13:47 Spasmodic torticollis 79817704 G24.3 Migraine without aura 56 764616 G43.009 [id number] Serg Valetnino MD [facility] [address] [place] [address] [place] [address] 08/21/2023 08:51:02 08/23/2023 07:56:29 Spasmodic torticollis 88914301 G24.3 Migraine without aura 56 303446 G43.009 Health Concerns Section Related Observation LastModified by Organization Detai ls LastModified Time None Recorded Concern Status LastModified by Organization Details LastModified Time None Recorded Advance Directives Directive None Recorded Payers Encounter Date Sequence Insurance Name Policy Number Policy Ariza Covered Member ID Ariza Member ID Guarantor Name 06/12/2023 1 MEDICARE B-[place]: [facility] Tran A [place] [id number] Tran [place] 06/12/2023 2 [facility] - PLAN 1 (MEDICARE SUPPLEMENT) [id number] 1 Tran [place] [id number] Tran [place] 08/21/2023 1 MEDICARE B-[place]: [facility] Tran A [place] [id number] Tran Sarah 08/21/2023 2 [facility] 1 (MEDICARE SUPPLEMENT) [id number] 1 Tran [place] [id number] Tran Sarah Notes Date Note Type Note Provider Name and Address Organization Details Recorded Time 06/12/2023 text/html She presents for initial neurology evaluation of right-sided headache. Past medical history is notable for TIA. 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 M rs Ayush? (she also [...] in 2016 (left facial droop, hospitalized at [facility]) with severe headache to forehead, points [...] went to see a neurology practice in [place] for the symptoms -for this as well as tingling in her toes - and it was recommended that she see a sports clinic and a headache clinic. So, she went to see Dr. Martinez from [facility] for back pain and [...] with a disc bulge. Serg Valentino MD [address] [place] [address] [place], [address], [facility] 06/12/2023 18:53:42 08/21/2023 text/html Follow up right-sided headache. Past medical history is notable for TIA. 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 M rs Ayush? (she also [...] trouble walking. She has been working with [facility] and they wanted to do nerve therapy but she says that physical therapy thought not ? (she is not sure if it was of the neck or of the low back).She is feeling frustrated with all of her appointments. She lives in [place] so there is gas and then the co-pay and then she had COVID for 2 weeks in her house in the interim and so she missed a number of the appointments for her nerve injections. (And she thinks that they were frustrated with her for not seeing a physical therapist through [facility] [place]) she says that she initially started out in [place] through [facility] neurology and that she could not be [...] in 2016 (left facial droop, hospitalized at [facility]) with severe headache to forehead, points [...] went to see a neurology practice in [place] for the symptoms -for this as well as tingling in her toes - and it was recommended that she see a sports clinic and a headache clinic. So, she went to see Dr. Martinez from [facility] for back pain and [...] with a disc bulge. Serg Valentino MD [address] [place] [address] [place], [address], [facility] 08/22/2023 18:12:37 OBGyn Episode No OBEpisode recorded.
--- OUTSIDE RECORDS SUMMARY | 2024-09-18 19:42 | XMS_ITS | Continuity of Care Document ---
Author Organization [address] [place] [address] Phone Care Team Providers Care Document Control Clerk Name Role Phone Osiel Olea Unavailable Unavailable [...] Diagnoses Date Provider Providers Copied on Encounter [address] [place], [id number], [place] tel:[phone] [facility] No Information 2 Prabha Cartagena. [address] [place], [place], [id number] , [place]. [phone] Office/New Level [address] [place], [id number], [place] tel:[phone] [facility] UTI (chief complaint) Body mass index (BMI) 25.0-25.9, adultDysuriaUrinary tract infection, site not specified 2 Dmitri Donnie. [address] [place] [address], [address], [place]. tel:[phone] Referring Provider: Donnie Rizvi, [address] [place] [address], [address]. tel:[phone] Family History Family Member Type Diagnosis Age At Onset Father Problem Unknown Payers Payer name Insurance type Covered constitution party ID Roman monae(s) Medicare - [id number] Secondary Payer To Contracte d Primary [id number] Social History Type Description Quantity Date Captured [...]
== END 2024-09-18 17:47 | disposition home or self-care (01) ==
LOC: HO.MRI 17:46
PROVIDERS: PCP Family Medicine; Visit Provider Internal Medicine
DX: M25.562 Pain in left knee (principal)
CPT/HCPCS: 73721

== ENCOUNTER → 2024-09-18 17:55 | Outpatient (BNV) | payer MEDICARE, OTHER, SELFPAY | PROVIDERS: PCP Family Medicine; Visit Provider Radiology Diagnostic Radiology | DX: M17.12 Unilateral primary osteoarthritis, left knee (principal); M71.22 Synovial cyst of popliteal space [Baker], left knee | CPT/HCPCS: 73721 ==

== ENCOUNTER 2024-10-27 10:17 | Outpatient (AMB) | payer MEDICARE, OTHER, SELFPAY ==
--- NOTE | 2024-10-27 10:22 | A.OFFVIS_ITS ---
Vital Signs 10/27/24 10:23 Height 5 ft 6 in Weight 165 lb BMI 26.6 BP 155/75 H Blood Pressure Location Lt brachial Position Sitting Respiration 16 Pulse 68 Pulse Source Pulse Oximeter Pulse Oximetry (%) 97 Oxygen Delivery Method Room Air Intake Visit Reasons: Discuss MRI Results Allergies Penicillins Allergy (Unknown, Verified 10/27/24 10:25) reaction unknown-allergy as young adult Medication List - Last Reconciled 10/27/24 by Irma Herrera LPN aspirin (Adult Aspirin Regimen) 81 mg PO DAILY levothyroxine 75 mcg PO DAILY miscellaneous medical supply SI joint belt; use as directed CHARI: 99 sacroiliac belt As directed HPI HPI Discuss MRI Results: Details: History of Present Illness The patient is a 69-year-old female presenting with chronic lumbar back pain alongside recent MRI findings suggesting a femoral bone abnormality on the left side. Her condition includes an infarct or enchondroma with occasional referred hip pain. The lumbar back pain improved following a prior procedure, though pursued physical therapy and lifestyle changes, such as maintaining an anti- inflammatory diet and monitoring weight, are aimed at pain reduction. She experiences periodic knee pain likely related to osteoarthritis, noting changes with activity levels. The patient reports significant pain related to arthritis in her thumbs, with previous steroid injections providing short-term relief but undesirable long-term. This aligns with her preference to avoid frequent injections. Pain Description - Onset and Timing: Chronic lumbar back pain, intermittent knee pain, recent MRI detected left-sided femoral infarct/enchondroma. - Quality and Character: Back pain is achy and sometimes burning; knee pain is variable; femoral pain is not clearly defined but potentially referable. - Primary Location: Lumbar region, bilateral knees; femoral concerne on the left side. - Radiation: Occasional referred pain from the femoral abnormality. - Exacerbating factors: Over-exertion for back and knee pain; specific weight- bearing activities are noted. - Relieving factors: Physical therapy, dietary modifications, avoidance of certain medications. - Functional Interference: Knee and thumb pain affects lifting and grasping; back pain affects mobility with increased discomfort upon over-exertion. Physical Exam - Appears afebrile. - Alert and oriented. - Mood and affect appropriate. - Follows and participates in conversation appropriately. - Respiratory effort is unlabored. - Able to transition from sit to stand unassisted. - Ambulates with bilaterally normal heel strike and toe off. - Able to stand and walk on toes and heels. Results - Imaging/MRI: Detection of femoral bone abnormality described as an infarct or enchondroma on the left side. Pain Management - Affect: Patient feels discouraged by ongoing pain; intermittently feels like a complainer. - Analgesia: Avoids frequent use of medications like ibuprofen; prefers non- pharmaceutical measures. Previous injections for thumb arthritis. - Adverse Effects: Prefers to avoid side effects of frequent steroid injections. - Activities of Daily Living: Pain intermittently affects daily functioning; adjustments made in diet and effort to maintain physical activity. - Aberrant Drug Related Behaviors: No aberrant behaviors; avoids misuse of medications, preferring fewer rather than more pharmacologic interventions. [facility] Medical History (Updated 08/08/24 @ 10:04 by Manuel Grimes MD) Anesthesia complication Family history of anesthesia complication Transient ischemic attack (TIA) Migraine Hypothyroid Surgical History (Updated 04/28/24 @ 13:59 by Vanessa Brandon RN) Hx of tubal ligation History of esophagogastroduodenoscopy (EGD) H/O colonoscopy Social History Are you a primary resident caregiver to a significant other at home: No Do you presently have visiting nurse or other home services: No Patient Tobacco Use Status: Never used Tobacco Physical Exam Vital Signs: Last Vital Signs Pulse 68 10/27/24 10:23 Resp 16 10/27/24 10:23 BP 155/75 H 10/27/24 10:23 Pulse Ox 97 10/27/24 10:23 Oxygen Delivery Method Room Air 10/27/24 10:23 BMI result Body Mass Index 26.6 Assessment & Plan Assessment & Plan (1) Left knee pain: Code(s): M25.562 - Pain in left knee Category: Medical (2) Vertebrogenic low back pain: Code(s): M54.51 - Vertebrogenic low back pain Category: Medical (3) Sacroiliac joint dysfunction of left side: Code(s): M53.3 - Sacrococcygeal disorders, not elsewhere classified Category: Medical Plan Plan The care plan directs towards continued non-pharmacological measures such as dietary management and physical therapy for sustained back and knee pain improvement. Consideration of procedural intervention with the Sprint device was discussed, given potential benefits in managing chronic pain via a non-invasive and safe methodology, while the insurance constraints require alignment. Emphasis placed on addressing trigger factors in the lumbar and knee pain with targeted interventions informed by ongoing symptom monitoring and broader treatment alignment, considering both medical history and personal preferences. Patient was informed and verbally consented to the use of an ambient scribe for clinic note documentation during this visit. Discussion Notes I discussed the femoral bone abnormality at length, reassuring the patient of its typically asymptomatic nature but addressing the potential for referred pain. We reviewed various pain management strategies, focusing on the benefits of the Sprint device for disrupting pain pathways and stimulating muscles without pharmacological burden or significant procedural risk. I emphasized its success rate of approximately 70% and discussed minor risks such as lead breakage. Coverage by insurance remains a concern, with potential need for a psychological evaluation. I advised on sustainable daily management and e ncouraged the patient regarding options that fit her health goals and lifestyle. Patient Instructions - Continue physical therapy as scheduled. - Maintain dietary modifications to support inflammation management. - Monitor for changes in pain levels or new symptoms. - Consider non-invasive options like the Sprint device if appropriate. - Discuss potential changes to insurance plans as necessary for procedural coverage. - Avoid excessive reliance on pain medications. - Contact the clinic if there is a significant change in symptoms or for further discussion on pain management options. Coding Level of Care Code Est Pt Level 3 (40338) Diagnoses Left knee pain M25.562 Vertebrogenic low back pain M54.51 Sacroiliac joint dysfunction of left side M53.3
[2024-10-27 10:23] VITALS: BP 155/75; PULSE 68; RESP 16; O2SAT 97; BMI 26.6
--- OUTSIDE RECORDS SUMMARY | 2024-10-27 12:02 | XMS_ITS | Data Portability ---
Author Organization [facility], [employer] Address [address] [place] [id number] Care Team Providers Care Plating Operator Name Role Phone ORVILLE MATOS Primary Care Provider [phone] Assessment Encounter Date Assessment Date Assessment LastModified [...] be stress related in nature. We discussed symd-vuw-gvpzcsx regimens in detail. Headaches do not resemble [...] Mortality of Patient Management: nidia Not available 02/07/2023 06:15:34 03/20/2023 03/20/2023 Reviewed [...] detail. Not interested in further med interventions. 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 - Patient owned [...] 024 AMANDA [facility], [address], [place], [address], 4 14:07:23 CMP, serum or plasma 2023 024 AMANDA [facility], [address], [place], [address], 4 14:07:24 urinalysis complete, reflex culture 2023 024 AMANDA [facility], [address], [place], [address], 4 14:07:25 TSH, serum or plasma 2022 023 AMANDA [facility] (Centralized Electronic Ordering - All Locations), Patient Can Go To The Location Of Their Choice, [address] 3 00:08:38 Referral hand surgeon referral - [address] General Surgery Scheduling Dept, [address] [place], [address], 5 14:19:40 gastroenter ologist referral 2022 [address] [place] [address] Gastroenterol ogy, [address] [place] [address], [address], 3 10:21:28 Procedures None recorded. Surgeries None recorded. Imaging MRI, lumbar spine, w/o contrast - Pt has failed conservativ e 6 weeks therapy 2023 024 jordon 4 [facility] ([facility]), [address] [facility], [place], [address], 4 14:17:59 Medication Orders Bactrim DS 800 mg-160 mg tablet [address] [id number], [address] [place], [address], 5 09:34:35 Patient TargetsNo targets recorded. Patient InstructionsNo instructions recorded. Reason for Referral Utility Manager Referral for Irritable bowel syndrome Referring Physician: [...] Go To The Location Of Their Choice, [address] 02/07/2023 00:08:37 01/28/20 24 01/29/2024 CBC WITH DIFFE RENTI AL/PL ATELE T WBC 8.3 x10e3 /uL 3.4-10 .8 Not Available [facility] ([facility]) [address] [place], [address], 01/30/2024 14:07:22 01/28/20 24 01/29/2024 CBC WITH DIFFE RENTI AL/PL ATELE T RBC 4.81 x10e6 /uL 3.77-5 .28 Not Available [facility] ([facility]) [address] [place], [address], 01/30/2024 14:07:22 01/28/20 24 01/29/2024 CBC WITH DIFFE RENTI AL/PL ATELE T hemoglobin 14.5 g/dL 11.1-1 5.9 Not Available [facility] ([facility]) [address] [place], [address], 01/30/2024 14:07:22 01/28/20 24 01/29/2024 CBC WITH DIFFE RENTI AL/PL ATELE T hematocrit 43.8 % 34.0-4 6.6 Not Available [facility] ([facility]) [address] [place], [address], 01/30/2024 14:07:22 01/28/20 24 01/29/2024 CBC WITH DIFFE RENTI AL/PL ATELE T MCV 91 fL 79-97 Not Available [facility] ([facility]) [address] [facility], [place], [address], 01/30/2024 14:07:22 01/28/20 24 01/29/2024 CBC WITH DIFFE RENTI AL/PL ATELE T MCH 30.1 pg 26.6-3 3.0 Not Available [facility] ([facility]) [address] [facility], [place], [address], 01/30/2024 14:07:22 01/28/20 24 01/29/2024 CBC WITH DIFFE RENTI AL/PL ATELE T MCHC 33.1 g/dL 31.5-3 5.7 Not Available [facility] ([facility]) [address] [facility], [place], [address], 01/30/2024 14:07:22 01/28/20 24 01/29/2024 CBC WITH DIFFE RENTI AL/PL ATELE T RDW 13.5 % 11.7-1 5.4 Not Available [facility] ([facility]) [address] [facility], [place], [address], 01/30/2024 14:07:22 01/28/20 24 01/29/2024 CBC WITH DIFFE RENTI AL/PL ATELE T platelets 300 x10e3 /uL 150-45 0 Not Available [facility] ([facility]) [address] [facility], [place], [address], 01/30/2024 14:07:22 01/28/20 24 01/29/2024 CBC WITH DIFFE RENTI AL/PL ATELE T neutrophils 59 % not estab. Not Available [facility] ([facility]) [address] [facility], [place], [address], 01/30/2024 14:07:22 01/28/20 24 01/29/2024 CBC WITH DIFFE RENTI AL/PL ATELE T lymphs 29 % not estab. Not Available [facility] ([facility]) [address] [facility], [place], [address], 01/30/2024 14:07:22 01/28/20 24 01/29/2024 CBC WITH DIFFE RENTI AL/PL ATELE T monocytes 7 % not estab. Not Available [facility] ([facility]) [address] [facility], [place], [address], 01/30/2024 14:07:22 01/28/20 24 01/29/2024 CBC WITH DIFFE RENTI AL/PL ATELE T eos 3 % not estab. Not Available [facility] ([facility]) [address] [facility], [place], [address], 01/30/2024 14:07:22 01/28/20 24 01/29/2024 CBC WITH DIFFE RENTI AL/PL ATELE T basos 1 % not estab. Not Available [facility] ([facility]) [address] [facility], [place], [address], 01/30/2024 14:07:22 01/28/20 24 01/29/2024 CBC WITH DIFFE RENTI AL/PL ATELE T immature cells GLAZE MAKER Not Available [facility] ([facility]) [address] [facility], [place], [address], 01/30/2024 14:07:22 01/28/20 24 01/29/2024 CBC WITH DIFFE RENTI AL/PL ATELE T neutrophils (absolute) 4.9 x10e3 /uL 1.4-7. 0 Not Available [facility] ([facility]) [address] [facility], [place], [address], 01/30/2024 14:07:22 01/28/20 24 01/29/2024 CBC WITH DIFFE RENTI AL/PL ATELE T lymphs (absolute) 2.4 x10e3 /uL 0.7-3. 1 Not Available [facility] ([facility]) [address] [facility], [place], [address], 01/30/2024 14:07:22 01/28/20 24 01/29/2024 CBC WITH DIFFE RENTI AL/PL ATELE T monocytes(ab solute) 0.6 x10e3 /uL 0.1-0. 9 Not Available [facility] ([facility]) [address] [facility], [place], [address], 01/30/2024 14:07:22 01/28/20 24 01/29/2024 CBC WITH DIFFE RENTI AL/PL ATELE T eos (absolute) 0.2 x10e3 /uL 0.0-0. 4 Not Available [facility] ([facility]) [address] [facility], [place], [address], 01/30/2024 14:07:22 01/28/20 24 01/29/2024 CBC WITH DIFFE RENTI AL/PL ATELE T baso (absolute) 0.1 x10e3 /uL 0.0-0. 2 Not Available [facility] ([facility]) [address] [facility], [place], [address], 01/30/2024 14:07:22 01/28/20 24 01/29/2024 CBC WITH DIFFE RENTI AL/PL ATELE T immature granulocytes 1 % not estab. Not Available [facility] ([facility]) [address] [facility], [place], [address], 01/30/2024 14:07:22 01/28/20 24 01/29/2024 CBC WITH DIFFE RENTI AL/PL ATELE T immature grans (abs) 0.0 x10e3 /uL 0.0-0. 1 Not Available [facility] ([facility]) [address] [facility], [place], [address], 01/30/2024 14:07:22 01/28/20 24 01/29/2024 CBC WITH DIFFE RENTI AL/PL ATELE T NRBC GLAZE MAKER Not Available [facility] ([facility]) [address] [facility], [place], [address], 01/30/2024 14:07:22 01/28/20 24 01/29/2024 CBC WITH DIFFE RENTI AL/PL ATELE T hematology comments: GLAZE MAKER Not Available [facility] ([facility]) [address] [facility], [place], [address], 01/30/2024 14:07:22 01/28/20 24 01/29/2024 COMP. METAB OLIC PANEL (14) glucose 85 mg/dL 70-99 Not Available [facility] ([facility]) [address] [facility], [place], [address], 01/30/2024 14:07:23 01/28/20 24 01/29/2024 COMP. METAB OLIC PANEL (14) BUN 15 mg/dL 8-27 Not Available [facility] ([facility]) [address] [facility], [place], [address], 01/30/2024 14:07:23 01/28/20 24 01/29/2024 COMP. METAB OLIC PANEL (14) creatinine 0.78 mg/dL 0.57-1 .00 Not Available [facility] ([facility]) [address] [facility], [place], [address], 01/30/2024 14:07:23 01/28/20 24 01/29/2024 COMP. METAB OLIC PANEL (14) eGFR 82 mL/mi n/1.7 3 >59 Not Available [facility] ([facility]) [address] [place], [address], 01/30/2024 14:07:23 01/28/20 24 01/29/2024 COMP. METAB OLIC PANEL (14) BUN/creatini ne ratio 19 12-28 Not Available [facility] ([facility]) [address] [place], [address], 01/30/2024 14:07:23 01/28/20 24 01/29/2024 COMP. METAB OLIC PANEL (14) sodium 140 mmol/ L 134-14 4 Not Available [facility] ([facility]) [address] [place], [address], 01/30/2024 14:07:23 01/28/20 24 01/29/2024 COMP. METAB OLIC PANEL (14) potassium 4.5 mmol/ L 3.5-5. 2 Not Available [facility] ([facility]) [address] [place], [address], 01/30/2024 14:07:23 01/28/20 24 01/29/2024 COMP. METAB OLIC PANEL (14) chloride 103 mmol/ L 96-106 Not Available [facility] ([facility]) [address] [place], [address], 01/30/2024 14:07:23 01/28/20 24 01/29/2024 COMP. METAB OLIC PANEL (14) carbon dioxide, total 19 mmol/ L 20-29 below low normal Not Available [facility] ([facility]) [address] [place], [address], 01/30/2024 14:07:23 01/28/20 24 01/29/2024 COMP. METAB OLIC PANEL (14) calcium 9.6 mg/dL 8.7-10 .3 Not Available [facility] ([facility]) [address] [facility], [address], 01/30/2024 14:07:23 01/28/20 24 01/29/2024 COMP. METAB OLIC PANEL (14) protein, total 6.5 g/dL 6.0-8. 5 Not Available [facility] ([facility]) [address] [facility], [address], 01/30/2024 14:07:23 01/28/20 24 01/29/2024 COMP. METAB OLIC PANEL (14) albumin 4.6 g/dL 3.9-4. 9 Not Available [facility] ([facility]) [address] [facility], [place], [address], 01/30/2024 14:07:23 01/28/20 24 01/29/2024 COMP. METAB OLIC PANEL (14) globulin, total 1.9 g/dL 1.5-4. 5 Not Available [facility] ([facility]) [address] [facility], [place], [address], 01/30/2024 14:07:23 01/28/20 24 01/29/2024 COMP. METAB OLIC PANEL (14) bilirubin, total 1.0 mg/dL 0.0-1. 2 Not Available [facility] ([facility]) [address] [facility], [place], [address], 01/30/2024 14:07:23 01/28/20 24 01/29/2024 COMP. METAB OLIC PANEL (14) alkaline phosphatase 67 IU/L 44-121 Not Available [facility] ([facility]) [address] [facility], [place], [address], 01/30/2024 14:07:23 01/28/20 24 01/29/2024 COMP. METAB OLIC PANEL (14) AST (SGOT) 27 IU/L 0-40 Not Available [facility] ([facility]) [address] [facility], [place], [address], 01/30/2024 14:07:23 01/28/20 24 01/29/2024 COMP. METAB OLIC PANEL (14) ALT (SGPT) 21 IU/L 0-32 Not Available [facility] ([facility]) [address] [facility], [place], [address], 01/30/2024 14:07:23 01/28/20 24 01/29/2024 UA/M W/RFL X CULTU RE, ROUTI NE specific gravity 1.006 1.005- 1.030 Not Available [facility] ([facility]) [address] [facility], [place], [address], 01/30/2024 14:07:24 01/28/20 24 01/29/2024 UA/M W/RFL X CULTU RE, ROUTI NE pH 7.5 5.0-7. 5 Not Available [facility] ([facility]) [address] [facility], [place], [address], 01/30/2024 14:07:24 01/28/20 24 01/29/2024 UA/M W/RFL X CULTU RE, ROUTI NE urine-color Yellow yellow Not Available [facility] ([facility]) [address] [facility], [place], [address], 01/30/2024 14:07:24 01/28/20 24 01/29/2024 UA/M W/RFL X CULTU RE, ROUTI NE appearance Clear clear Not Available [facility] ([facility]) [address] [facility], [place], [address], 01/30/2024 14:07:24 01/28/20 24 01/29/2024 UA/M W/RFL X CULTU RE, ROUTI NE WBC esterase Trace negati ve abnormal Not Available [facility] ([facility]) [address] [place], [address], 01/30/2024 14:07:24 01/28/20 24 01/29/2024 UA/M W/RFL X CULTU RE, ROUTI NE protein Negati ve negati ve/tra ce Not Available [facility] ([facility]) [address] [place], [address], 01/30/2024 14:07:24 01/28/20 24 01/29/2024 UA/M W/RFL X CULTU RE, ROUTI NE glucose Negati ve negati ve Not Available [facility] ([facility]) [address] [place], [address], 01/30/2024 14:07:24 01/28/20 24 01/29/2024 UA/M W/RFL X CULTU RE, ROUTI NE ketones Negati ve negati ve Not Available [facility] ([facility]) [address] [place], [address], 01/30/2024 14:07:24 01/28/20 24 01/29/2024 UA/M W/RFL X CULTU RE, ROUTI NE occult blood Negati ve negati ve Not Available [facility] ([facility]) [address] [place], [address], 01/30/2024 14:07:24 01/28/20 24 01/29/2024 UA/M W/RFL X CULTU RE, ROUTI NE bilirubin Negati ve negati ve Not Available [facility] ([facility]) [address] [place], [address], 01/30/2024 14:07:24 01/28/20 24 01/29/2024 UA/M W/RFL X CULTU RE, ROUTI NE urobilinogen ,semi-qn 0.2 mg/dL 0.2-1. 0 Not Available [facility] ([facility]) [address] [place], [address], 01/30/2024 14:07:24 01/28/20 24 01/29/2024 UA/M W/RFL X CULTU RE ROUTI NE nitrite, urine Negati ve negati ve Not Available [facility] ([facility]) [address] [place], [address], 01/30/2024 14:07:24 01/28/20 24 01/29/2024 UA/M W/RFL X CULTU RE, ROUTI NE microscopic examination See below: Micro scopi c was indic ated and was perfo rmed. Not Available [facility] ([facility]) [address], [place], [address], 01/30/2024 14:07:24 01/28/20 24 01/29/2024 UA/M W/RFL X CULTU RE, ROUTI NE WBC None seen /hpf 0 - 5 Not Available [facility] ([facility]) [address] [facility], [place], [address], 01/30/2024 14:07:24 01/28/20 24 01/29/2024 UA/M W/RFL X CULTU RE, ROUTI NE RBC None seen /hpf 0 - 2 Not Available [facility] ([facility]) [address], [place], [address], 01/30/2024 14:07:24 01/28/20 24 01/29/2024 UA/M W/RFL X CULTU RE, ROUTI NE epithelial cells (non renal) None seen /hpf 0 - 10 Not Available [facility] ([facility]) [address] [facility], [place], [address], 01/30/2024 14:07:24 01/28/20 24 01/29/2024 UA/M W/RFL X CULTU RE, ROUTI NE epithelial cells (renal) GLAZE MAKER Not Available [facility] ([facility]) [address] [facility], [place], [address], 01/30/2024 14:07:24 01/28/20 24 01/29/2024 UA/M W/RFL X CULTU RE, ROUTI NE casts None seen /lpf none seen Not Available [facility] ([facility]) [address] [facility], [place], [address], 01/30/2024 14:07:24 01/28/20 24 01/29/2024 UA/M W/RFL X CULTU RE, ROUTI NE cast type GLAZE MAKER Not Available [facility] ([facility]) [address] [facility], [place], [address], 01/30/2024 14:07:24 01/28/20 24 01/29/2024 UA/M W/RFL X CULTU RE, ROUTI NE crystals GLAZE MAKER Not Available [facility] ([facility]) [address] [facility], [place], [address], 01/30/2024 14:07:24 01/28/20 24 01/29/2024 UA/M W/RFL X CULTU RE, ROUTI NE crystal type GLAZE MAKER Not Available [facility] ([facility]) [address] [facility], [place], [address], 01/30/2024 14:07:24 01/28/20 24 01/29/2024 UA/M W/RFL X CULTU RE, ROUTI NE mucus threads GLAZE MAKER Not Available [facility] ([facility]) [address] [facility], [place], [address], 01/30/2024 14:07:24 01/28/20 24 01/29/2024 UA/M W/RFL X CULTU RE, ROUTI NE bacteria None seen none seen/f ew Not Available [facility] ([facility]) [address] [facility], [place], [address], 01/30/2024 14:07:24 01/28/20 24 01/29/2024 UA/M W/RFL X CULTU RE, ROUTI NE yeast GLAZE MAKER Not Available [facility] ([facility]) [address] [facility], [place], [address], 01/30/2024 14:07:24 01/28/20 24 01/29/2024 UA/M W/RFL X CULTU RE, ROUTI NE trichomonas GLAZE MAKER Not Available [facility] ([facility]) [address] [facility], [place], [address], 01/30/2024 14:07:24 01/28/20 24 01/29/2024 UA/M W/RFL X CULTU RE, ROUTI NE comment GLAZE MAKER Not Available [facility] ([facility]) [address] [facility], [place], [address], 01/30/2024 14:07:24 01/28/20 24 01/29/2024 UA/M W/RFL X CULTU RE, ROUTI NE microscopic examination GLAZE MAKER Not Available [facility] ([facility]) [address] [facility], [place], [address], 01/30/2024 14:07:24 01/28/20 24 01/29/2024 UA/M W/RFL X CULTU RE, ROUTI NE urinalysis reflex Commen t This speci men has refle xed to a Urine Cultu re. Not Available [facility] ([facility]) [address] [facility], [place], [address], 01/30/2024 14:07:24 01/28/20 24 01/30/2024 UA/M W/RFL X CULTU RE, ROUTI NE urine culture, routine Final report Not Available [facility] ([facility]) [address] [facility], [place], [address], 01/30/2024 14:07:24 01/28/20 24 01/30/2024 UA/M W/RFL X CULTU RE, ROUTI NE result 1 No growth Not Available [facility] ([facility]) [address] [facility], [place], [address], 01/30/2024 14:07:24 09/03/19 24 09/01/2023 MRI, lumba r spine , w/o contr ast No observ ation record ed. [facility] [address], [place], [address], 01/28/2024 11:53:03 01/30/20 24 01/30/2024 CT ABD/p [...] ters. COMPAR VANNESSA: 2022, 022 FINDIN GS: Director Of Social Work View Findin gs, Lines and Tubes: None. [...] karime: 4:20 pm Patien t Class: 5 [facility]) [address] [place] [address], [address], 01/31/2024 09:46:52 02/12/20 24 02/07/2024 CT, abdom en + pelvi s, w/ contr ast No observ ation record ed. [email or web address] Not Available 02/11 14:42:51 Result Notes None recorded. Problems Name Problem SNOMED Code Status Onset Date Resolution Date Notes Provider Name and Address Organization Details Recorded Time Essential hypertension 33168355 Active 2020 Not Available [facility] 2 23:16:02 Acquired hypothyroidi sm 528149199 Active 2020 Not Available [facility] 2 23:16:02 Idiopathic peripheral neuropathy 31505270 Active 2022 Orville Matos, [address] [place] [address], , [place] [facility] 3 06:08:58 Irritable bowel syndrome 30996138 Active 2022 Orville Matos DO [address] [place] [address], , [place] [facility] 3 06:08:59 Occipital headache 447420 Active 2022 Orville Matos DO [address] [place] [address], , [place] [facility] 3 06:09:08 Chronic pzmo-VJNPL-1 9 syndrome 9190230183 Active 2021 Orville Bert Matos, DO [address] [place] [address] [address], [place], [address] , [place] [facility] 2 06:24:15 Problem Notes None recorded. Procedures Surgical History None recorded. Imaging Results Imaging Date Name Status LastModified by Organiz ation Details LastModified Time 09/01/2023 MRI, lumbar spine, w/o contrast completed [email or web address] [facility] [address] [place] [address], [address], 01/28/2024 11:53:03 01/30/2024 CT ABD/pelvis w/ IV contrast only completed [facility]) [address] [place] [address], [address], 01/31/2024 09:46:52 02/07/2024 CT, abdomen + pelvis, [...] wn, sever ity: Unkno wn Not Available [facility] 2 03:50:36 421 Product containin g penicilli n (product) medicatio n Not available Not available Not available 09/20/2021 53033 8001 SNOMED Shoshana Lamomid adrian, [place] [facility] 2 13:53:58 Medications [...] 3 165.1 cm 20 /min 26.9 kg/m2 44474.4 7 g 97 % 97 % 78 /min 118 mm[Hg] 66 mm[Hg] Jacinta Guardado [place] [facility] 3 14:23:52 Date Recorded Body height Body mass index (BMI) Body weight Oxygen saturation Oxygen saturation in Arterial blood by Pulse oximetry Heart rate Systolic blood pressure Diastolic blood pressure Provider Name and Address Organization Details Last Updated DateTime 3 165.1 cm 26.8 kg/m2 12768.0 7 g 95 % 95 % 80 /min 120 mm[Hg] 60 mm[Hg] Inocencia Hatfield [facility] 3 09:54:59 Date Recorded Body height Body mass index (BMI) Body weight Oxygen saturation Oxygen saturation in Arterial blood by Pulse oximetry Heart rate Systolic blood pressure Diastolic blood pressure Provider Name and Address Organization Details Last Updated DateTime 4 165.1 cm 27.3 kg/m2 55312.8 5 g 98 % 98 % 7 /min 128 mm[Hg] 74 mm[Hg] Inocencia Hatfield [facility] 4 11:38:50 Date Recorded Body height Body mass index (BMI) Body weight Oxygen saturation Oxygen saturation in Arterial blood by Pulse oximetry Heart rate Systolic blood pressure Diastolic blood pressure Provider Name and Address Organization Details Last Updated DateTime 4 165.1 cm 27.1 kg/m2 06005.2 6 g 97 % 97 % 78 /min 138 mm[Hg] 74 mm[Hg] Inocencia Hatfield [facility] 4 11:46:49 Date Recorded Body height Body mass index (BMI) Body weight Oxygen saturation Oxygen saturation in Arterial blood by Pulse oximetry Heart rate Systolic blood pressure Diastolic blood pressure Provider Name and Address Organization Details Last Updated DateTime 5 165.1 cm 27.8 kg/m2 52698.6 3 g 99 % 99 % 76 /min 128 mm[Hg] 74 mm[Hg] Inocencia Hatfield [facility] 5 09:35:44 Social History Question Answer Notes LastModified by Organizat ion Details LastModified Time Tobacco Smoking Status Never Smoker Shoshana adrian [facility] 12/26/2021 14:55:40 Do You Have An Advance Directive? [email or web address] Information not available 12/26/2021 What Is Your [...] Pneumococcal conjugate PCV 13 9 completed Shoshanacailin Prince ARIC adrian [facility] 12/23/2021 17:02:02 COVID-19, mRNA, LNP-S, PF, 100 mcg/0.5mL dose or 50 mcg/0.25mL dose 1 completed Shoshana Niki ARIC adrian [facility] 12/23/2021 17:02:02 Past Encounters Encounter ID Performer Location Encounter Start Date Encounter Closed Date Diagnosis/Indication Diagnosis SNOMED-CT Code Diagnosis ICD10 Code Diagnosis Note [id number] Orville Matos DO Main Office [address] [place] [address] [address] SHANIKA Jennyfer ARIC [id number] 08/08/2021 08:24:28 08/08/2021 15:18:40 Hypothyroidism 64443947 E03.9 Pain of ri ght knee joint 4917442110 33846 M25.561 Pain in ri ght hip joint 8146981546 23731 M25.551 [id number] Orville Matos DO Main Office [address] [place] [address] [address] [place] [id number] 09/20/2021 13:44:44 09/21/2021 11:41:16 Chronic lnos-DANCE-54 syndrome 3996383065 Z86.16 [id number] Orville Matos DO Main Office [address] [place] [address] [address] [place] [id number] 12/26/2021 14:49:23 12/26/2021 15:41:32 Irritable bowel syndrome 89481225 K58.9 [id number] Orville Matos DO Main Office [address] [place] [address] [address] [place] [id number] 02/06/2022 10:12:37 02/06/2022 11:27:54 Adult health examination 392138266 Z00.00 Screening for cardiovascular system disease 870710166 Z13.6 Screening for malignant neoplasm of colon 112701375 Z12.11 Screening for osteoporosis 540328082 Z13.820 Screening mammography 24 131653 Z12.31 Active or passive immunization 331490470 Z23 Hepatitis C screening 41 6613647 Z11.59 Hypothyroidism 95193678 E03.9 Depression screening 171 210751 Z13.31 [id number] Orville Matos DO Main Office [address] [place] [address] [address] [place] [id number] 12/04/2022 08:14:03 12/04/2022 09:26:58 Cervical radiculopathy 69108907 M54.12 Tight chest 53009707 R07 .89 [id number] Orville Matos DO Main Office [address] [place] [address] [address] [place] [id number] 12/11/2022 13:09:57 12/11/2022 15:56:51 Low back pain [id number] M54.50 Genital he rpes simplex [id number] A60.9 [id number] Orville Matos DO Main Office [address] [place] [address] [address] [place] [id number] 02/06/2023 14:11:11 02/06/2023 15:01:27 Irritable bowel syndrome [id number] K58.9 Gastroesop hageal reflux disease [id number] K21.9 Hypothyroidism 33720257 E03.9 Chronic low back pain 27 1136690 M54.50 Abdominal pain 21387816 R10.9 Epigastric pain 76442733 R10.13 [id number] Orville Matos DO Main Office [address] [place] [address] [address] [place] [address] 03/20/2023 09:39:13 03/20/2023 15:27:38 Acquired hypothyroidism [id number] E03.[address]-COVID-19 syndrome [id number] Z86.16 Irritable bowel syndrome 65820042 K58.9 Idiopathic peripheral neuropathy 28514170 G60.9 Occipital headache 13512 7 R51.9 32234 Orville Matos DO Main Office [address] [place] [address] [address] [place] [address] 08/16/2023 11:28:37 08/16/2023 12:27:50 Lumbar radiculopathy 914968387 M54.16 Essential hypertension 70286429 I10 Idiopathic peripheral neuropathy 07119638 G60.9 Irritable bowel syndrome 18355936 K58.9 249546 Orville Matos DO Main Office [address] [place] [address] [address] [place] [address] 01/28/2024 11:36:55 01/28/2024 12:11:48 Chronic low back pain 819892905 M54.[address] Matos. See patient case on 05/21/23. Abdominal pain 85323969 R10.9 943023 Orville Bert Matos DO Main Office [address] [place], [place] [address] [address] [place] [address] 09/10/2024 09:23:20 09/10/2024 10:08:41 Pain of left hand 0436793642 37910 M79.642 Trigger fi nger of left hand 4757423766 4506815 M65.30 Acquired hypothyroidism 540970197 E03.9 Chronic low back pain 27 5618769 M54.50 Has neuro follow up Pain of le ft knee joint 0703319851 94184 M25.562 ortho f/u, reviewed poc Health Concerns Section Related Observation LastModified by Organization Detai ls LastModified Time None Recorded Concern Status LastModified by Organization Details LastModified Time None Recorded Advance Directives Directive Y: Payers Encounter Date Sequence Insurance Name Policy Number Policy Ariza Covered Member ID Ariza Member ID Guarantor Name 02/06/2023 2 [facility] 1 (MEDICARE SUPPLEMENT) [id number] 1 Tran A A Sarah [id number] Tran A [place] 02/06/2023 1 [place] [employer]ATIONAL [employer]MENT [employer] Tran A [place] [id number] Tran A Sarah 03/20/2023 2 [facility] (MEDICARE SUPPLEMENT) [id number] 1 Tran A A [place] [id number] Tran A Sarah 03/20/2023 1 [place] NATIONAL GOVERNMENT SERVICES Tran A [place] [id number] Tran A [place] 08/16/2023 2 [facility] - PLAN 1 (MEDICARE SUPPLEMENT) [id number] 1 Tran A A [place] [id number] Tran A Sarah 08/16/2023 1 [place] [employer]ERNMENT [employer] Tran A [place] [id number] Tran A Sarah 01/28/2024 2 [facility] - PLAN 1 (MEDICARE SUPPLEMENT) [id number] 1 Tranjames Barros Sarah [id number] Tran Fiorella Sarah 01/28/2024 1 MEDICARE B-AR: [facility] SERVICES Tran Barros Sarah [id number] Tran A Sarah 09/10/2024 2 [facility] - PLAN 1 (MEDICARE SUPPLEMENT) [id number] 1 Tran A A [place] [id number] Tran Fiorella [place] 09/10/2024 1 MEDICARE B-AR: [facility] SERVICES Tran Barros [place] [id number] Tran Barros Sarah Notes Date Note Type Note Provider [...] aura, or neurologic deficits. Orville Matos, DO [address] [facility], [facility] [address], [place], [address], [facility] 02/07/2023 06:15:46 03/20/2023 text/html He is [...] aura that usually resolves with stretching and xphm-hqc-uxafrwj pain medications. Orville Matos, DO [address] [place] [address], [facility] [address], [address], [place] [facility] 03/22/2023 06:13:48 08/16/2023 text/html 68 y/o female wi [facility] hypothyroidism, IBS, peripheral neuropathy, HTN, headache, presenting to discuss several issues. Orville Matos, [address] [facility], [facility] [address], [place], [address], [place] [facility] 08/18/2023 14:30:52 09/10/2024 [...] from 12 years ago. Orville Matos, DO [address] [facility], [facility] [address], [place], [address], [place] [facility] 09/10/2024 10:09:06 OBGyn Episode No OBEpisode recorded.
--- OUTSIDE RECORDS SUMMARY | 2024-10-27 12:02 | XMS_ITS | Data Portability ---
Author Organization Formerly [facility] [place], [employer] Address [address] [place] [address] [place] [address] Care Team Providers Care Quick Service Technician Name Role Phone ORVILLE IBRAHIM Referring Provider Unavailable ORVILLE IBRAHIM Referring Provider ORVILLE IBRAHIM Primary Care Provider [phone] Assessment Encounter Date Assessment Date Assessment LastModified [...] Start physical therapy Citlali Tannerlieu PT [address] [place] [address] Ph. , You will need to call to schedule the first appointment Follow-up in about 2 months to do the trial of physical therapy Sarah with Dr. Valentino, impression and plan developed with him CC Dr Martinez, [facility] [place] [address] Not available 06/12/2023 17:58:03 08/21/2023 08/21/2023 IMPRESSION: [...] toe extensors I was joined by Dr. Valenitno who explained to her that to see [...] region CONTINUE physical therapy Citlali Riggins PT [address] [place] [address] Ph. , Follow-up as needed regarding headaches. We did not discuss medication management (nor injection management) If you wish to see us for low back pain radiating in to the left lower extremity (for which you are already working with physical therapy above) you will need to have primary care send a referral. We would request records from [facility] on any treatment/imaging to [...] 023 shyla 1 Citlali Riggins PT, [address] [place], [address], 4 10:22:42 Procedures None recorded. Surgeries None recorded. Imaging None recorded. Medication Orders None recorded. Patient TargetsNo targets recorded. Patient Instructions Encounter Date Encounter Id Patient Instructions Last Modified By Organization Details Last Modified Time 06/12/2023 [id number] Discussion acros s issues of diagnoses and management and same day associated chart review and management greater than 50% greater than 90 minutes Not available 06/12/2023 18:00:56 08/21/2023 [id number] Discussion acros s issues of diagnoses and [...] 08/21/2023 DATA REVIEW completed MEENA BULLARD PA-C [address] [place] [address], [phone], [facility] 08/21/2023 09:13:04 06/12/2023 DATA REVIEW completed MEENA BULLARD PA-C [address] [place] [address], [phone], [facility] 06/12/2023 17:37:28 Imaging Results None recorded. [...] Updated DateTime 06/12/2023 167.64 cm 25 kg/m2 59792.82 g 12 /min [facility] 06/12/2023 10:31:46 Social History Question Answer Notes LastModified by Organizat ion Details LastModified Time Tobacco Smoking Status Never Smoker [facility] 06/12/2023 10:33:19 What Is Your Level Of Alcohol Consumption? None [place] Information not available 06/12/2023 What Is Your Level Of Caffeine Consumption? None Information not available 06/12/2023 What Is The Highest Grade Or Level Of School You Have Completed Or The Highest Degree You Have Received? [id number] [facility] Information not available 06/12/2023 Which Of [...] SNOMED-CT Code Diagnosis ICD10 Code Diagnosis Note [id number] Serg Valentino MD [facility] [address] [place] [address] [place] [address] 06/12/2023 10:19:16 06/13/2023 12:13:47 Spasmodic torticollis 60640054 G24.3 Migraine without aura 56 162037 G43.009 74325 Serg Valentino MD [facility] [address] [place] [address] [place] [address] 08/21/2023 08:51:02 08/23/2023 07:56:29 Spasmodic torticollis 23790058 G24.3 Migraine without aura 56 591326 G43.009 Health Concerns Section Related Observation LastModified by Organization Detai ls LastModified Time None Recorded Concern Status LastModified by Organization Details LastModified Time None Recorded Advance Directives Directive None Recorded Payers Encounter Date Sequence Insurance Name Policy Number Policy Ariza Covered Member ID Ariza Member ID Guarantor Name 06/12/2023 1 MEDICARE B-[place]: [facility] Tran A [place] [id number] Tran [place] 06/12/2023 2 [facility] 1 (MEDICARE SUPPLEMENT) [id number] 1 Tran [place] [id number] Tran [place] 08/21/2023 1 MEDICARE B-RI: [facility] Tran A [place] [id number] Tran [place] 08/21/2023 2 [facility] 1 (MEDICARE SUPPLEMENT) [id number] 1 Tran [place] [id number] Tran [place] Notes Date Note Type Note Provider Name and Address Organization Details Recorded Time 06/12/2023 text/html She presents for initial neurology evaluation of right-sided headache. Past medical history is notable for TIA. 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 (she also [...] in 2016 (left facial droop, hospitalized at [facility]) with severe headache to forehead, points slightly [...] went to see a neurology practice in [place] for the symptoms -for this as well as tingling in her toes - and it was recommended that she see a sports clinic and a headache clinic. So, she went to see Dr. Martinez from [facility] for back pain and [...] with a disc bulge. Serg Valentino MD [address] [place] [address] [place], [address], [facility] 06/12/2023 18:53:42 08/21/2023 text/html Follow up right-sided headache. Past medical history is notable for TIA. 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 (she also [...] trouble walking. She has been working with [facility] and they wanted to do nerve therapy but she says that physical therapy thought not ? (she is not sure if it was of the neck or of the low back).She is feeling frustrated with all of her appointments. She lives in [place] so there is gas and then the co-pay and then she had COVID for 2 weeks in her house in the interim and so she missed a number of the appointments for her nerve injections. (And she thinks that they were frustrated with her for not seeing a physical therapist through [facility] [employer]) she says that she initially started out in [place] through [facility] neurology and that she could not be [...] in 2016 (left facial droop, hospitalized at [facility]) with severe headache to forehead, points slightly [...] went to see a neurology practice in [place] for the symptoms -for this as well as tingling in her toes - and it was recommended that she see a sports clinic and a headache clinic. So, she went to see Dr. Martinez from [facility] for back pain and [...] with a disc bulge. Serg Valentino MD [address] [place] [address] [place], [address], [facility] 08/22/2023 18:12:37 OBGyn Episode No OBEpisode recorded.
== END 2024-10-27 11:24 | disposition home or self-care (01) ==
LOC: HO.PMC 10:18
PROVIDERS: PCP Family Medicine; Visit Provider Internal Medicine
DX: M25.562 Pain in left knee (principal); M54.51 Vertebrogenic low back pain; M53.3 Sacrococcygeal disorders, not elsewhere classified
CPT/HCPCS: 99213

== ENCOUNTER → 2024-10-27 10:17 | Outpatient (BNVA) | payer MEDICARE, OTHER, SELFPAY | PROVIDERS: PCP Family Medicine; Visit Provider Internal Medicine | DX: M53.3 Sacrococcygeal disorders, not elsewhere classified (principal); M54.51 Vertebrogenic low back pain; M25.562 Pain in left knee | CPT/HCPCS: 99212 ==

== ENCOUNTER 2025-02-05 06:15 | Outpatient (REF) | payer MEDICARE, OTHER, SELFPAY ==
--- OUTSIDE RECORDS SUMMARY | 2022-04-06 05:40 | XMS_ITS | Continuity of Care Document ---
Author Organization [address] [place] [address] Phone Care Team Providers Care C Architect Name Role Phone Osiel Olea Unavailable Unavailable [...] Diagnoses Date Provider Providers Copied on Encounter [address] [place], [id number], [place] tel:[phone] [facility] No Information 2 Prabha Cartagena. [address] [place], [place], [id number] , [place]. [phone] Office/New Level [address] [place], [id number], [place] tel:[phone] [facility] UTI (chief complaint) Body mass index (BMI) 25.0-25.9, adultDysuriaUrinary tract infection, site not specified 2 Dmitri Donnie. [address] [place] [address], [address], [place]. tel:[phone] Referring Provider: Donnie Rizvi, [address] [place] [address], [address]. tel:[phone] Family History Family Member Type Diagnosis Age At Onset Father Problem Unknown Payers Payer name Insurance type Covered green party ID Roman monae(s) Medicare - [id number] Secondary Payer To Contracte d Primary [id number] Social History Type Description Quantity Date Captured [...]
--- NOTE | ~2025-02-05 | FL_ITS ---
EXAMINATION: FL GUIDANCE ONLY HISTORY: M54.51 - Vertebrogenic low back pain COMPARISON: None available. TECHNIQUE: Fluoroscopy time: 0.1 minute. Cumulative Dose: 1.55 mGy. DAP: 0.0135 mGym2 Images: 3. FINDINGS: Fluoroscopic spot films of the lumbar spine demonstrate an electrode in place. FL/FL guidance in treatment room IMPRESSION: Fluoroscopy during procedure. Please see procedure report for additional information. Electronically signed by: Tariq Wiseman MD 02/05/2025 02:44 PM EDT
--- OUTSIDE RECORDS SUMMARY | 2025-02-05 06:18 | XMS_ITS | Data Portability ---
Author Organization [facility], [employer] Address [address] [place] [address] [place] [address] Care Team Providers Care Export Manager Name Role Phone ORVILLE IBRAHIM Referring Provider Unavailable ORVILLE IBRAHIM Referring Provider [phone] ORVILLE IBRAHIM Primary Care Provider Assessment Encounter Date Assessment [...] the temporal region Start physical therapy Citlali Riggins PT [address] [place] [address] Ph. , You will need to call to schedule the first appointment Follow-up in about 2 months to do the trial of physical therapy Sarah with Dr. Valentino, impression and plan developed with him CC Dr Martinez, [facility] jacek Not available 06/12/2023 17:58:03 08/21/2023 08/21/2023 IMPRESSION: [...] on a daily aspirin. PLAN Tran Smith August 21, 2023 For the right sided radiating pain from the base of the skull to the temporal region CONTINUE physical therapy Citlali Riggins PT [address] [place] [address] Ph. , Follow-up as needed regarding headaches. We did not discuss medication management (nor injection management) If you wish to see us for low back pain radiating in to the left lower extremity (for which you are already working with physical therapy above) you will need to have primary care send a referral. We would request records from [facility] on any treatment/imaging to [...] - temporal radiation, R SCM spasm 2022 Ramona [place] 1 Citlali Riggins PT, [address] [place], [address], 4 10:22:42 Procedures None recorded. Surgeries None recorded. Imaging None recorded. Medication Orders None recorded. Patient TargetsNo targets recorded. Patient Instructions Encounter Date Encounter Id Patient Instructions Last Modified By Organization Details Last Modified Time 06/12/2023 [id number] Discussion acros s issues of diagnoses and management and same day associated chart review and management greater than 50% greater than 90 minutes Not available 06/12/2023 18:00:56 08/21/2023 [id number] Discussion acros s issues of diagnoses and management and same day associated chart review and management greater than 50% greater than 45 minutes Not available 08/21/2023 19:24:27 Reason for Referral Please eval from myofascial release. TTP at b/l skull base w/ delayed right occipital - temporal radiation, R SCM spasm Referring Physician: Laura Bullard, Neurology, Encounter Date: 06/12/2023 Procedures Surgical History Date Name Laterality Status Provider Name and Address Organization Details Recorded Time 08/21/2023 DATA REVIEW completed LAURA BULLARD PA-C [address] [place] [address], [phone], [facility] 08/21/2023 09:13:04 06/12/2023 DATA REVIEW completed LAURA BULLARD PA-C [address] [place] [address], [phone], [facility] 06/12/2023 17:37:28 Imaging Results None recorded. Procedure [...] Updated DateTime 06/12/2023 167.64 cm 25 kg/m2 81814.82 g 12 /min [facility] 06/12/2023 10:31:46 Social History Question Answer Notes LastModified by Organizat ion Details LastModified Time Tobacco Smoking Status Never Smoker [facility] 06/12/2023 10:33:19 What Is Your Level Of Caffeine Consumption? None Information not available 06/12/2023 What Is The Highest Grade Or Level Of School You Have Completed Or The Highest Degree You Have Received? [id number] Information not available 06/12/2023 Which Of Your Hands Is Dominant? Left Information not available 06/12/2023 What Is Your Relationship Status? Information not available 06/12/2023 Sex: Unknown Functional Status Question Answer Note LastModified by Organization D etails LastModified Time What is your level of alcohol consumption? None Information not available 06/12/2023 Mental Status None recorded. Family History Relationship [...] SNOMED-CT Code Diagnosis ICD10 Code Diagnosis Note [id number] LAURA BULLARD PA-C [address] [place] [address] 06/12/2023 10:19:16 06/13/2023 12:13:47 Spasmodic torticollis 64666300 G24.3 Migraine without aura 56 180535 G43.009 06649 LAURA BULLARD PA-C [address] [place] [address] 08/21/2023 08:51:02 08/23/2023 07:56:29 Spasmodic torticollis 46171760 G24.3 Migraine without aura 56 089892 G43.009 Health Concerns Section Related Observation LastModified by Organization Detai ls LastModified Time None Recorded Concern Status LastModified by Organization Details LastModified Time None Recorded Advance Directives Directive None Recorded Payers Insurance Date Sequence Insurance Name Policy Number Policy Ariza Covered Member ID Ariza Member ID Guarantor Name 08/18/2023 1 [place] [employer] Tran Fiorella Martinezon [id number] Tran [place] 08/27/2023 2 [facility] - PLAN 1 (MEDICARE SUPPLEMENT) [id number] 1 Tran Martinezon [id number] Tran Smith Notes Date Note Type Note Provider Name and Address Organization Details Recorded Time 06/12/2023 text/html She presents for initial neurology evaluation of right-sided headache. Past medical history is notable for TIA. 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 She [...] in 2016 (left facial droop, hospitalized at [facility]) with severe headache to forehead, points [...] went to see a neurology practice in [place] for the symptoms -for this as well as tingling in her toes - and it was recommended that she see a sports clinic and a headache clinic. So, she went to see Dr. Martinez from [facility] for back pain and [...] a disc bulge. Serg Valentino MD [address] [place] [address] [place], [address], [facility] 06/12/2023 18:53:42 08/21/2023 text/html Follow up right-sided headache. Past medical history is notable for TIA. 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 Since [...] trouble walking. She has been working with [facility] [facility] and they wanted to do nerve therapy but she says that physical therapy thought not (she is not sure if it was of the neck or of the low back).She is feeling frustrated with all of her appointments. She lives in [place] so there is gas and then the co-pay and then she had COVID for 2 weeks in her house in the interim and so she missed a number of the appointments for her nerve injections. (And she thinks that they were frustrated with her for not seeing a physical therapist through [employer]) she says that she initially started out in [place] through [facility] neurology and that she could not [...] in 2016 (left facial droop, hospitalized at [facility]) with severe headache to forehead, points [...] went to see a neurology practice in [place] for the symptoms -for this as well as tingling in her toes - and it was recommended that she see a sports clinic and a headache clinic. So, she went to see Dr. Martinez from [facility] for back pain and [...] a disc bulge. Serg Valentino MD [address] [place] [address] [place], [address], [facility] 08/22/2023 18:12:37 OBGyn Episode No OBEpisode recorded.
== END 2025-02-05 06:16 | disposition home or self-care (01) ==
LOC: CF 06:15
PROVIDERS: Visit Provider Internal Medicine
DX: M54.51 Vertebrogenic low back pain (principal); G89.29 Other chronic pain
CPT/HCPCS: 64555; C1778; J2003

== ENCOUNTER 2025-02-05 10:58 | Outpatient (AMB) | payer MEDICARE, OTHER, SELFPAY ==
[2025-02-05 11:03] VITALS: BP 118/77; PULSE 70; RESP 16; O2SAT 94; BMI 26.6
--- NOTE | 2025-02-05 11:03 | MHC.OFFVIS ---
Vital Signs 02/05/25 11:03 02/05/25 11:39 Height 5 ft 6 in 5 ft 6 in Weight 165 lb 165 lb BMI 26.6 26.6 BP 118/77 126/82 Blood Pressure Location Lt brachial Lt brachial Position Sitting Sitting Respiration 16 16 Pulse 70 68 Pulse Source Pulse Oximeter Pulse Oximeter Pulse Oximetry (%) 94 95 Oxygen Delivery Method Room Air Room Air Intake Visit Reasons: Left lumbar Sprint Allergies Penicillins Allergy (Unknown, Verified 10/27/24 10:25) reaction unknown-allergy as young adult HPI HPI Left lumbar Sprint: Details: Patient presents for scheduled procedure. Denies any recent cough, cold, infection, fever or other significant changes in medical history since last office visit. [facility] Medical History (Updated 02/05/25 @ 13:34 by Manuel Grimes MD) Anesthesia complication Family history of anesthesia complication Transient ischemic attack (TIA) Migraine Hypothyroid Surgical History (Updated 04/28/24 @ 13:59 by Vanessa Brandon RN) Hx of tubal ligation History of esophagogastroduodenoscopy (EGD) H/O colonoscopy Social History Are you a primary toddler caregiver to a significant other at home: No Do you presently have visiting nurse or other home services: No Patient Tobacco Use Status: Never used Tobacco Physical Exam Vital Signs: Last Vital Signs Pulse 68 02/05/25 11:39 Resp 16 02/05/25 11:39 BP 126/82 02/05/25 11:39 Pulse Ox 95 02/05/25 11:39 Oxygen Delivery Method Room Air 02/05/25 11:39 BMI result Body Mass Index 26.6 Office Procedures Details: Lumbar Medial Branch Nerve Stimulation Lead Placement, SPR (Sprint) System, Left L3 ? After the risks, benefits and alternatives were discussed with the patient and informed consent was obtained, patient was placed in the prone position and padded to foster comfort. The skin overlying the lumbosacral spine was prepped and draped in sterile fashion. Fluoroscopy was used to identify the spinous process and lamina in the center of the patient?s region of pain. After identifying and marking the intended target along the course of the medial branch nerve, the skin around the planned entry point and the subcutaneous tissues were injected with lidocaine 1%. An introducer needle and stimulating probe were assembled, inserted and advanced along the intended course of the medial branch nerve as it traverses the lamina medial and inferior to the zygapophyseal joint, taking care to maintain the proper depth of insertion as the introducer is advanced under fluoroscopic guidance. The introducer needle was delivered to a location in proximity to the nerve. Multiple stimulation parameters were used to deliver stimulation to the target medial branch nerve in concert with stimulating at multiple positions around the nerve. Nerve target acquisition was confirmed noting generation of paresthesias in the paravertebral regions corresponding to the level being stimulated. Various electrical parameter combinations were tested, and the lead location was adjusted (physically relocated) until the patient indicated paresthesia/muscle tension overlapping the distribution of the patient?s typical region of pain. The stimulating probe was removed from the introducer and a percutaneous lead was guided through the needle and delivered to a location in similar proximity to the nerve. Final location was verified with electrical stimulation and documented with fluoroscopy. The introducer needle was removed, and the exposed end of the percutaneous lead was attached to an external stimulator unit. Various electrical parameter combinations were again tested until the patient indicated paresthesia or muscle tension overlapping the distribution of the patient?s typical region of pain. After confirming that lead impedance was in the normal range, the external unit was detached, the needle was removed, and the lead was anchored at the skin. The lead was threaded into the connector block and electrical continuity and desired patient response was confirmed. The connector block was attached to the external stimulator unit. The site was covered with a sterile occlusive dressing. The patient was observed for stability of vital signs and comfort. [id number] Percutaneous Peripheral Neuroelectrode Procedure: 88489 - Percutaneous Peripheral Neuroelectrode Procedure code (CPT) selection complete Office Meds lidocaine HCl 10 mg/mL (1 %) injection solution Performing Provider: Olamide Servin APRN, FORENSIC PATHOLOGIST Performing Location: [facility] Administered by: Manuel Grimes MD on 02/05/25 13:33 Dose Route Admin Location Dispensed Lot Number Expiration Date [facility] Architecture Consultant 5 mL subcut 5 mL Total Dispensed Waste 5 mL 0 % Assessment & Plan Assessment & Plan (1) Chronic pain: Code(s): G89.29 - Other chronic pain Category: Medical (2) Low back pain: Code(s): M54.50 - Low back pain, unspecified Category: Medical Plan Patient is status post temporary left L3 medial branch nerve stimulator placement. Patient tolerated procedure well and was discharged home in stable condition with discharge instructions. All questions were answered. We will follow-up via telephone or in clinic to assess response to therapy. A follow-up appointment was made during today's visit. Orders: Orders FL guidance in treatment room Today M54.51 - Vertebrogenic low back pain AMB Sprint PNS Today M54.51 - Vertebrogenic low back pain Coding Level of Care Code Procedure Only Diagnoses Chronic pain G89.29 Low back pain M54.50 CPT Codes Sprint PNS - SPRINT: 79480 - Percutaneous Peripheral Neuroelectrode ([id number]) Implantable Device Implantable Device Implantable Devices Qty Architecture Consultant Implant Date Expiration Date Analgesic PENS system 1 [employer] 02/05/25
[2025-02-05 11:39] VITALS: BP 126/82; PULSE 68; RESP 16; O2SAT 95; BMI 26.6
== END 2025-02-05 11:49 | disposition home or self-care (01) ==
LOC: HO.PMCPRC 10:58
PROVIDERS: PCP Family Medicine; Visit Provider Internal Medicine
DX: G89.29 Other chronic pain (principal); M54.50 Low back pain, unspecified; M54.51 Vertebrogenic low back pain
CPT/HCPCS: 64555

== ENCOUNTER 2025-02-09 09:00 | Outpatient (AMB) | payer MEDICARE, OTHER, SELFPAY ==
--- OUTSIDE RECORDS SUMMARY | 2022-04-06 05:40 | XMS_ITS | Continuity of Care Document ---
Author Organization [address] [place] [address] Phone Care Team Providers Care Jig And Fixture Builder Name Role Phone Osiel Olea Unavailable Unavailable Allergies, Adverse Reactions, Alerts Substance Reaction Status Criticality PENICILLIN Active No Information Medications Medication Instructions Dosage Effective Dates (start - stop) Status Comments Levoxyl 50 mcg tablet take 1 tablet by oral route every day 50 MCG - Active pantoprazole 40 mg tablet,delayed release take 1 tablet by oral route every day 40 MG - Active nitrofurantoin monohydrate/macrocrys tals 100 mg capsule take 1 capsule by oral route every 12 hours with food 100 MG - No Longer Active Procedures Procedure Date URINALYSIS AUTO W/O SCOPE Office/New Level 3 Advance Directives Directive Yes / No Effective Date File Name No Information Encounters Encounter Description Practice Location Reason(s) For Visit Diagnoses Date Provider Providers Copied on Encounter [address] [place], [id number], [place] tel:[phone] [facility] No Information 2 Prabha Cartagena. [address] [place], [place], [id number] , [place]. [phone] Office/New Level [address] [place], [id number], [place] tel:[phone] [facility] UTI (chief complaint) Body mass index (BMI) 25.0-25.9, adultDysuriaUrinary tract infection, site not specified 2 Dmitri Donnie. [address] [place] [address], [address], [place]. tel:[phone] Referring Provider: Donnie Rizvi, [address] [place] [address], [address]. tel:[phone] Family History Family Member Type Diagnosis Age At Onset Father Problem Unknown Payers Payer name Insurance type Covered libertarian ID Roman monae(s) Medicare - [id number] Secondary Payer To Contracte d Primary [id number] Social History Type Description Quantity Date Captured Comments Alcohol Use Details Unknown Caffeine Use Details Unknown Tobacco Use Status No Information Smoking Status No Information Sex Female Chief Complaint And Reason For Visit No Information Reason For Referral Reason For Referral No Information Plan Of Treatment Date Type Action Status Goal Dietary management education , guidance, and counseling completed History Of Present Illness Encounter Date Complaint History Of Prese nt Illness UTI Onset: 3 Days. P resenting/Initial symptoms include burning, frequency, hesitancy and urgency. Pertinent negatives include dysuria, fever, frequency, hematuria or retention. Functional Status Date Functional Assessmen t No Information Instructions Date Instruction Additional Infor mation Nitrofurantoin 5d.Fl uids.F/u if not resolved. Related to Urinary tract infection, site not specified Dietary management e ducation, guidance, and counseling Related to Body mass index (BMI) 25.0-25.9, adult Assessments Type Assessment Date No Information Patient Care Teams Name Effective Dates (start - stop) Status Members No Information
[2025-02-09 09:03] VITALS: BP 127/72; PULSE 67; RESP 16; O2SAT 94; BMI 25.5
--- NOTE | 2025-02-09 09:03 | MHC.OFFVIS ---
Vital Signs 02/09/25 09:03 Height 5 ft 6 in Weight 158 lb BMI 25.5 BP 127/72 Blood Pressure Location Lt brachial Position Sitting Respiration 16 Pulse 67 Pulse Source Pulse Oximeter Pulse Oximetry (%) 94 Oxygen Delivery Method Room Air Intake Visit Reasons: s/p lumbar Sprint Intake Note: Patient here for a Post op, Dressing was changed, Site is clean and healed. 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 She is following up after the placement of a temporary medial branch nerve stimulator. The patient reports that upon waking up yesterday and today, she noticed less struggle in getting up, suggesting some improvement in her condition. She is adjusting to the pulsing sensation of the stimulator, which she finds interesting. The patient notes that the sensation is not constant, which is explained by the dynamic nature of the lead tip position. Initially, she experienced fatigue, which she attributes to stress related to the procedure. She also reported not sleeping well during this period. Pain Description - Onset: Following placement of a temporary medial branch nerve stimulator - Quality: Pulsing sensation, not constant - Exacerbating factors: Stress related to the procedure - Relieving factors: Adjustment to the stimulator Physical Exam - Appears afebrile. - Alert and oriented. - Mood and affect appropriate. - Follows and participates in conversation appropriately. - Respiratory effort is unlabored. - Able to transition from sit to stand unassisted. - Ambulates with bilaterally normal heel strike and toe off. - Able to stand and walk on toes and heels. - Lead insertion site c/d/i. Dressing changed. Results Pain Management - Affect: Patient reports feeling less struggle in getting up, indicating some improvement - Analgesia: Temporary medial branch nerve stimulator in place, patient adjusting to pulsing sensation - Adverse Effects: Initial fatigue and poor sleep attributed to stress - Activities of Daily Living: Improvement noted in morning activities [facility] Medical History (Updated 02/05/25 @ 13:34 by Manuel Grimes MD) Anesthesia complication Family history of anesthesia complication Transient ischemic attack (TIA) Migraine Hypothyroid Surgical History (Updated 04/28/24 @ 13:59 by Vanessa Brandon RN) Hx of tubal ligation History of esophagogastroduodenoscopy (EGD) H/O colonoscopy Social History Are you a primary long term care pharmacist to a significant other at home: No Do you presently have visiting nurse or other home services: No Patient Tobacco Use Status: Never used Tobacco Physical Exam Vital Signs: Last Vital Signs Pulse 67 02/09/25 09:03 Resp 16 02/09/25 09:03 BP 127/72 02/09/25 09:03 Pulse Ox 94 02/09/25 09:03 Oxygen Delivery Method Room Air 02/09/25 09:03 BMI result Body Mass Index 25.5 Assessment & Plan Assessment & Plan (1) Low back pain: Code(s): M54.50 - Low back pain, unspecified Category: Medical (2) Chronic pain: Code(s): G89.29 - Other chronic pain Category: Medical Plan Plan - Continue monitoring the effectiveness of the temporary medial branch nerve stimulator. - Advise the patient to adjust the stimulator settings to find optimal relief without feeling the buzz constantly. - Schedule a follow-up appointment in seven weeks to evaluate the stimulator's effectiveness and decide on further steps. Patient was informed and verbally consented to the use of an ambient scribe for clinic note documentation during this visit. Discussion Notes I discussed with the patient the importance of adjusting the stimulator settings to achieve optimal relief without constantly feeling the buzz. We also talked about scheduling a follow-up appointment in seven weeks to assess the stimulator's effectiveness and determine the next steps. Patient Instructions - Adjust the stimulator settings to find the best relief without feeling the buzz all the time. - Keep the remote control within range to avoid wireless errors. - Return for a follow-up appointment in seven weeks. Coding Level of Care Code Est Pt Level 3 (24706) Diagnoses Low back pain M54.50 Chronic pain G89.29
--- OUTSIDE RECORDS SUMMARY | 2025-02-09 09:14 | XMS_ITS | Data Portability ---
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 , You will need to call to schedule the first appointment Follow-up in about 2 months to do the trial of physical therapy Sarah with Dr. Valentino, impression and plan developed with him CC Dr Martinez, [facility] jacek Not available [...] region CONTINUE physical therapy [facility] [address] [place] [id number] Ph. , Follow-up as needed regarding headaches. We did not discuss medication management (nor injection management) If you wish to see us for low back pain radiating in to the left lower extremity (for which you are already working with physical therapy above) you will need to have primary care send a referral. We would request records from [facility] on any treatment/imaging to [...] Ramona hetalleah 1 [facility], [address] [place], [address], 4 10:22:42 Procedures None recorded. Surgeries None recorded. Imaging None recorded. Medication Orders None recorded. Patient TargetsNo targets recorded. Patient Instructions Encounter Date Encounter Id Patient Instructions Last Modified By Organization Details Last Modified Time 06/12/2023 [id number] Discussion acros s issues of diagnoses and management and same day associated chart review and management greater than 50% greater than 90 minutes Not available 06/12/2023 18:00:56 08/21/2023 [id number] Discussion acros s issues of diagnoses and [...] 08/21/2023 DATA REVIEW completed LAURA BULLARD PA-C [address] [place] [address], [phone], [facility] 08/21/2023 09:13:04 06/12/2023 DATA REVIEW completed LAURA BULLARD PA-C [address] [place] [address], [phone], [facility] 06/12/2023 17:37:28 Imaging Results None recorded. [...] Updated DateTime 06/12/2023 167.64 cm 25 kg/m2 61587.82 g 12 /min [facility] 06/12/2023 10:31:46 Social History Question Answer Notes LastModified by Organizat ion Details LastModified Time Tobacco Smoking Status Never Smoker [facility] 06/12/2023 10:33:19 What Is Your Level Of Caffeine Consumption? None Information not available 06/12/2023 What Is The Highest Grade Or Level Of School You Have Completed Or The Highest Degree You Have Received? [id number] Information not available 06/12/2023 Which Of Your [...] Not available 10:33:01 Medical History Condition Response Thyroid Problems Y Stroke Y Headaches Y Gynecological HistoryNo gynecological history recorded. Obstetrics History GPAL:G 0 P 0 0 0 0 Past Encounters Encounter ID Performer Location Encounter Start Date Encounter Closed Date Diagnosis/Indication Diagnosis SNOMED-CT Code Diagnosis ICD10 Code Diagnosis Note [id number] LAURA BULLARD PA-C [address] [place] [address] 06/12/2023 10:19:16 06/13/2023 12:13:47 Spasmodic torticollis 61841606 G24.3 Migraine without aura 56 775620 G43.009 [id number] LAURA BULLARD PA-C [address] [place] [address] 08/21/2023 08:51:02 08/23/2023 07:56:29 Spasmodic torticollis 96256820 G24.3 Migraine without aura 56 839461 G43.009 Health Concerns Section Related Observation LastModified by Organization Detai ls LastModified Time None Recorded Concern Status LastModified by Organization Details LastModified Time None Recorded Advance Directives Directive None Recorded Payers Insurance Date Sequence Insurance Name Policy Number Policy Ariza Covered Member ID Ariza Member ID Guarantor Name 08/18/2023 1 [place]: [employer] Tran Fiorella Martinezon [id number] Tran [place] 08/27/2023 2 [facility] - PLAN 1 (MEDICARE SUPPLEMENT) [id number] 1 Tran Martinezon [id number] Tran Smith Notes Date Note Type Note Provider Name and Address Organization Details Recorded Time 06/12/2023 text/html She presents for initial neurology evaluation of right-sided headache. Past medical history is notable for TIA. 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 So, she went to see Dr. Martinez from [facility] for back pain and [...] with a disc bulge. Serg Valentino MD [address] [place] [address] [place], [phone], [facility] 06/12/2023 18:53:42 08/21/2023 text/html Follow up right-sided headache. Past medical history is notable for TIA. 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 She has been working with [employer] and [facility] and they wanted to do nerve therapy but she says that physical therapy thought not (she is not sure if it was of the neck or of the low back).She is feeling frustrated with all of her appointments. She lives in [place] so there is gas and then the co-pay and then she had COVID for 2 weeks in her house in the interim and so she missed a number of the appointments for her nerve injections. (And she thinks that they were frustrated with her for not seeing a physical therapist through [facility]) she says that she initially started out in [place] through [facility] neurology and that she could not be [...] in 2016 (left facial droop, hospitalized at [facility]) with severe headache to forehead, points [...] went to see a neurology practice in [place] for the symptoms -for this as well as tingling in her toes - and it was recommended that she see a sports clinic and a headache clinic. So, she went to see Dr. Martinez from [facility] for back pain and [...] with a disc bulge. Serg Valentino MD [address] [place] [address] [place], [phone], [facility] 08/22/2023 18:12:37 OBGyn Episode No OBEpisode recorded.
== END 2025-02-09 09:39 | disposition home or self-care (01) ==
PROVIDERS: PCP Family Medicine; Visit Provider Internal Medicine
DX: M54.50 Low back pain, unspecified (principal); G89.29 Other chronic pain
CPT/HCPCS: 99024

== ENCOUNTER → 2025-02-09 09:00 | Outpatient (BNVA) | payer MEDICARE, OTHER, SELFPAY | PROVIDERS: PCP Family Medicine; Visit Provider Internal Medicine | DX: M54.50 Low back pain, unspecified (principal); G89.29 Other chronic pain; Z96.89 Presence of other specified functional implants | CPT/HCPCS: 99212 ==

== ENCOUNTER 2025-04-01 09:20 | Outpatient (AMB) | payer MEDICARE, OTHER, SELFPAY ==
--- OUTSIDE RECORDS SUMMARY | 2022-04-06 05:40 | XMS_ITS | Continuity of Care Document ---
Author Organization [address] [place] [address] Phone Care Team Providers Care Chemical Laboratory Scientist Name Role Phone Osiel Olea Unavailable Unavailable [...] Diagnoses Date Provider Providers Copied on Encounter [address] [place], [id number], [place] tel:[phone] [facility] No Information 2 Prabha Cartagena. [address] [place], [place], [id number] , [place]. [phone] Office/New Level [address] [place], [id number], [place] tel:[phone] [facility] UTI (chief complaint) Body mass index (BMI) 25.0-25.9, adultDysuriaUrinary tract infection, site not specified 2 Dmitri Donnie. [address] [place] [address], [address], [place]. tel:[phone] Referring Provider: Donnie Rizvi, [address] [place] [address], [address]. tel:[phone] Family History Family Member Type Diagnosis Age At Onset Father Problem Unknown Payers Payer name Insurance type Covered alliance party ID Roman monae(s) Medicare - [id number] Secondary Payer To Contracte d Primary [id number] Social History Type Description Quantity Date Captured [...]
[2025-04-01 09:25] VITALS: BP 118/78; PULSE 76; RESP 16; O2SAT 96; BMI 26.3
--- NOTE | 2025-04-01 09:25 | A.OFFVIS_ITS ---
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 She reports significant improvement in her back pain following the temporary nerve stimulation procedure, although she experiences discomfort when lying down for extended periods, which resolves with movement. Additionally, she has begun experiencing intermittent pain on the right side of her back, for which a bursa injection may be considered if it worsens. Exercises for gluteus medius and greater trochanteric pain syndrome have been recommended, with resources available online. Pain Description - Onset: Pain improved after temporary nerve stimulation, but discomfort occurs when lying down for long periods. - Quality: Noticeable improvement, but intermittent pain on the right side of the back. - Location: Lower back and right side of the back. - Exacerbating factors: Lying down for extended periods. - Relieving factors: Movement and exercises for gluteus medius and greater trochanteric pain syndrome. Pain Management - Affect: Pain has improved, but intermittent discomfort affects daily activities. - Analgesia: Temporary nerve stimulation has provided noticeable relief. - Activities of Daily Living: Pain affects lying down for extended periods, but movement helps alleviate discomfort. [facility] Medical History (Updated 04/06/25 @ 11:22 by Manuel Grimes MD) Anesthesia complication Family history of anesthesia complication Transient ischemic attack (TIA) Migraine Hypothyroid Surgical History (Updated 04/28/24 @ 13:59 by Vanessa Brandon RN) Hx of tubal ligation History of esophagogastroduodenoscopy (EGD) H/O colonoscopy Social History Are you a primary adult care manager to a significant other at home: No Do you presently have visiting nurse or other home services: No Patient Tobacco Use Status: Never used Tobacco Physical Exam Vital Signs: Last Vital Signs Pulse 76 04/01/25 09:25 Resp 16 04/01/25 09:25 BP 118/78 04/01/25 09:25 Pulse Ox 96 04/01/25 09:25 Oxygen Delivery Method Room Air 04/01/25 09:25 BMI result Body Mass Index 26.3 Assessment & Plan Assessment & Plan (1) Low back pain: Code(s): M54.50 - Low back pain, unspecified Category: Medical (2) Left knee pain: Code(s): M25.562 - Pain in left knee Category: Medical (3) Greater trochanteric pain syndrome: Code(s): M25.559 - Pain in unspecified hip Category: Medical Plan Plan Patient was informed and verbally consented to the use of an ambient scribe for clinic note documentation during this visit. 1. Low Back Pain - Plan: Removal of temporary nerve stimulator device and monitor for symptom changes. 2. Greater Trochanteric Pain Syndrome - Plan: Engage in recommended exercises and consider bursa injection if symptoms worsen. Discussion Notes During the visit, we discussed the removal of the temporary nerve stimulator device and the noticeable improvement in the patient's low back pain. We also talked about the intermittent pain on the right side of her back and the pot ential benefit of a bursa injection if the pain worsens. I recommended exercises for gluteus medius and greater trochanteric pain syndrome, and suggested reliable online resources for guidance. Patient Instructions - Continue with exercises for gluteus medius and greater trochanteric pain syndrome. - Monitor the right side back pain and consider a bursa injection if it worsens. - Use online resources such as the [employer] and [employer] channel for exercise guidance. Coding Level of Care Code Est Pt Level 3 (19297) Diagnoses Low back pain M54.50 Left knee pain M25.562 Greater trochanteric pain syndrome M25.559
== END 2025-04-01 09:36 | disposition home or self-care (01) ==
LOC: HO.PMC 09:23
PROVIDERS: PCP Family Medicine; Visit Provider Internal Medicine
DX: M54.50 Low back pain, unspecified (principal); M25.562 Pain in left knee; M25.559 Pain in unspecified hip
CPT/HCPCS: 99213

== ENCOUNTER → 2025-04-01 09:20 | Outpatient (BNVA) | payer MEDICARE, OTHER, SELFPAY | PROVIDERS: PCP Family Medicine; Visit Provider Internal Medicine | DX: M25.562 Pain in left knee (principal); M54.50 Low back pain, unspecified; M25.551 Pain in right hip | CPT/HCPCS: 99212 ==